=== PATIENT | male | born 1945 | race African-American/Black ===

== ENCOUNTER 2016-12-31 19:11 | Observation (INO) | payer MEDICARE ==
[~2016-12-31] VITALS: Ht 180.3 cm; Wt 86.9 kg
[2016-12-31] MEDS ORDERED: IV NORMAL SALINE 1000ML BAG 1,000 ML IV ONE (19:15)
[2016-12-31 19:28] LABS: BASO % 0 % (0-3); EOS % 0 % (0-3); HEMATOCRIT 31.9 % (39.0-53.0); HEMOGLOBIN 10.7 g/dL (13.0-17.5); LYMPH # 0.4 x10^3/uL (1.0-4.8); LYMPH % 6 % (24-48); MEAN CORPUSCULAR HEMOGLOBIN 30 pg (25-35); MEAN CORPUSCULAR HGB CONC 34 g/dL (31-37); MEAN CORPUSCULAR VOLUME 90 fL (79-100); MONO % 16 % (0-9); NEUT % 78 % (31-73); PLATELET COUNT 106 x10^3/uL (140-400); RED BLOOD COUNT 3.55 x10^6/uL (4.30-5.70); RED CELL DISTRIBUTION WIDTH 16.1 % (11.5-14.5); WHITE BLOOD COUNT 6.2 x10^3/uL (4.0-11.0)
[2016-12-31 19:36] LABS: CALCIUM 8.9 mg/dL (8.5-10.1); CREATININE 6.3 mg/dL (0.7-1.3); GFR 8.8; POTASSIUM 3.7 mmol/L (3.5-5.1)
[2016-12-31 19:42] LABS: ALBUMIN/GLOBULIN RATIO 0.6 (1.0-1.7); TOTAL BILIRUBIN 0.7 mg/dL (0.2-1.0); TOTAL PROTEIN 8.4 g/dL (6.4-8.2)
--- NOTE | 2016-12-31 19:51 | PHYS DOC ---
Past Medical History Past Medical History: Hypertension, Renal Failure Past Surgical History: Other Additional Past Surgical Histo: FISTULA RIGHT ARM Alcohol Use: None Drug Use: None Adult General Chief Complaint Chief Complaint: ALTERED MENTAL STATUS HPI HPI Patient is a 71 year old male brought by EMS. The patient was found unconscious in his car in his driveway by a neighbor. The patient had driven himself to dialysis and had come home, and then evidently for some reason either fell asleep or became unconscious in his car. EMS stated that his car was turned off on their arrival. The interior of the car was extremely hot and the patient was extremely hot and diaphoretic. The patient was altered, confused , lethargic when they first arrived. By the time they arrived in the ED, the patient was becoming much more alert, EMS described him as 100 times better than when they first found him. The patient doesn't know what happened. He did drive himself to dialysis, he does have a bandage over his fistula, but he doesn 't remember getting home or anything after that. At this time, the patient has no particular complaints. He denies pain. Patient dialyzes on Monday and Monday. Patient denies history of heart trouble. He has hypertension. He believes he has kidney failure because it runs in his family. He's been on dialysis for about 7-1/2 years. He is not diabetic. He does not take any sedative medication. He has no history of seizures. PCP Dr. Mccray Teacher Dr. Mendez Review of Systems Review of Systems Constitutional: Denies fever or chills [] Eyes: Denies change in visual acuity, redness, or eye pain [] HENT: Denies nasal congestion or sore throat [] Respiratory: Denies cough or shortness of breath [] Cardiovascular: Denies chest pain GI: Denies abdominal pain, nausea, vomiting, bloody stools or diarrhea [] : He does not make any urine Musculoskeletal: Denies back pain or joint pain [] Integument: Denies rash or skin lesions [] Neurologic: Denies headache, focal weakness or sensory changes [] Current Medications Current Medications Current Medications Medications (Trade) Dose Ordered Sig/Elli Start Time Stop Time Status Last Admin Dose Admin Sodium Chloride 1,000 ml @ 1,000 mls/hr 1X ONCE 12/31/16 19:15 12/31/16 20:14 DC 12/31/16 19:15 1,000 MLS/HR Allergies Allergies Allergies Coded Allergies Type Severity Reaction Last Updated Verified No Known Drug Allergies 12/31/16 No Physical Exam Physical Exam Constitutional: Well developed, well nourished, no acute distress, non-toxic appearance. Temp 99.9 orally, patient is hot to the touch, alert, mentating normally. HENT: Normocephalic, atraumatic, bilateral external ears normal, oropharynx moist, no oral exudates, nose normal. [] Eyes: conjunctiva normal, no discharge. [] Neck: Normal range of motion, no stridor. [] Cardiovascular:Heart rate regular rhythm, no murmur [] Lungs & Thorax: Bilateral breath sounds clear to auscultation [] Abdomen: Bowel sounds normal, soft, no tenderness, no masses, no pulsatile masses. [] Skin: Warm, dry, no erythema, no rash. [] Extremities: No tenderness, no cyanosis, no clubbing, ROM intact, no edema. [] Neurologic: Alert and oriented X 3, normal motor function, normal sensory function, no focal deficits noted. [] Current Patient Data Vital Signs Vital Signs Date Time Temp Pulse Resp B/P (MAP) Pulse Ox O2 Delivery O2 Flow Rate FiO2 12/31/16 20:47 88 18 147/82 (103) 95 Room Air 12/31/16 19:11 99.9 99.9 Lab Values Laboratory Tests Test 12/31/16 19:19 12/31/16 19:22 White Blood Count 6.2 x10^3/uL (4.0-11.0) Red Blood Count 3.55 x10^6/uL (4.30-5.70) L Hemoglobin 10.7 g/dL (13.0-17.5) L Hematocrit 31.9 % (39.0-53.0) L Mean Corpuscular Volume 90 fL (79-100) Mean Corpuscular Hemoglobin 30 pg (25-35) Mean Corpuscular Hemoglobin Concent 34 g/dL (31-37) Red Cell Distribution Width 16.1 % (11.5-14.5) H Platelet Count 106 x10^3/uL (140-400) L Neutrophils (%) (Auto) 78 % (31-73) H Lymphocytes (%) (Auto) 6 % (24-48) L Monocytes (%) (Auto) 16 % (0-9) H Eosinophils (%) (Auto) 0 % (0-3) Basophils (%) (Auto) 0 % (0-3) Neutrophils # (Auto) 4.8 x10^3uL (1.8-7.7) Lymphocytes # (Auto) 0.4 x10^3/uL (1.0-4.8) L Monocytes # (Auto) 1.0 x10^3/uL (0.0-1.1) Eosinophils # (Auto) 0.0 x10^3/uL (0.0-0.7) Basophils # (Auto) 0.0 x10^3/uL (0.0-0.2) Sodium Level 137 mmol/L (136-145) Potassium Level 3.7 mmol/L (3.5-5.1) Chloride Level 103 mmol/L (98-107) Carbon Dioxide Level 21 mmol/L (21-32) Anion Gap 13 (6-14) 16 mmol/L (6-14) H Blood Urea Nitrogen 20 mg/dL (8-26) Creatinine 6.3 mg/dL (0.7-1.3) H Estimated GFR (Cockcroft-Gault) 8.8 BUN/Creatinine Ratio 3 (6-20) L Glucose Level 113 mg/dL (70-99) H 106 mg/dL (70-99) H Calcium Level 8.9 mg/dL (8.5-10.1) Total Bilirubin 0.7 mg/dL (0.2-1.0) Aspartate Amino Transferase (AST) 48 U/L (15-37) H Alanine Aminotransferase (ALT) 35 U/L (16-63) Alkaline Phosphatase 191 U/L (46-116) H Creatine Kinase 147 U/L (39-308) Total Protein 8.4 g/dL (6.4-8.2) H Albumin 3.0 g/dL (3.4-5.0) L Albumin/Globulin Ratio 0.6 (1.0-1.7) L POC Hemoglobin 11.6 g/dL (14-18) L POC Hematocrit 34 % (37-52) L POC Sodium 139 mmol/L (135-145) POC Potassium 3.7 mmol/L (3.5-5.0) POC Chloride 107 mmol/L (98-110) POC Total CO2 21 mmol/L (23-32) L POC Blood Urea Nitrogen 21 mg/dL (8-26) POC Creatinine 6.5 mg/dL (0.5-1.4) H POC Ionized Calcium (Lorene) 1.10 mmol/L (1.13-1.32) L POC Troponin I 0.03 ng/ml (<0.08) Laboratory Tests 12/31/16 19:19 Laboratory Tests 12/31/16 19:19 12/31/16 19:22 EKG EKG 12-lead EKG read by me. Underlying sinus rhythm. Heart rate 92. Intrinsic rhythm has a rate of about 100. In intrinsic QRS, there are no acute ST or T wave changes indicative of ischemia or infarction. No STEMI. There are numerous PVCs and some couplets. They appear to be unifocal. 191[] Radiology/Procedures Radiology/Procedures [] Course & Med Decision Making Course & Med Decision Making Pertinent Labs and Imaging studies reviewed. (See chart for details) 71-year-old male presents by EMS after being found unconscious in his vehicle, no evidence of injury or MVC, however the temperature is about 95 and he is hypothermic and soaked with sweat. Although he was initially lethargic and confused, the stimulation of bringing him to the hospital resulted in significant improvement in his mental status and he presents with a relatively normal mental status. He is wearing 3 layers of clothing including long underwear, states that the temperature in the dialysis unit is very cold and he always dresses like this. Even though he is a dialysis patient who does not make urine, his clothing is soaked and he is sufficiently diaphoretic that we discussed the patient and believe that a liter of fluid will just replace the losses he's had from sweating. Discussed with the patient that we will check some labs, give him some fluids, and observe him, he is agreeable to that plan. Labs are unremarkable for a dialysis patient. We did give him 1 L of IV fluids, realizing he does not make urine but that he lost a lot of fluid in the sweating episode. Patient remained alert, stable, mentating normally in the emergency department. During his entire stay, he continued to have very frequent PVCs, often in pairs. I discussed this with the patient and he tells me that he does see a newspaper subscription solicitor regularly at [facility] because he is on the kidney transplant list and he has to keep up with his cardiology evaluations. He has echocardiograms regularly and they are all was reported as normal. He's never heard anything about PVCs, irregular heartbeat, any rhythm problems with his heart. The patient is a good historian and I feel that if he has been having frequent PVCs and couplets he would probably know that. For this reason, I recommended that he be admitted to the hospital for cardiac monitoring. The patient is agreeable to that recommendation. I discussed the case with Dr. Baugh, [facility]. She will admit the patient. I wrote bridge orders. [] Dragon Disclaimer Dragon Disclaimer This electronic medical record was generated, in whole or in part, using a voice recognition dictation system. Departure Departure Impression: Primary Impression: Cardiac arrhythmia Additional Impressions: Paired ventricular premature complexes Syncope Disposition: ADMITTED INPATIENT Admitting Physician: Azul Baugh Condition: STABLE Problem Qualifiers SONIA ACEVEDO MD Dec 31, 2016 19:51
[2016-12-31 19:53] LABS: POTASSIUM ISTAT 3.7 mmol/L (3.5-5.0)
[2016-12-31 23:05] VITALS: BP 141/66
[2017-01-01] VITALS (8 sets, daily range): BP systolic 124–159; BP diastolic 60–69
[2017-01-01] MEDS ORDERED: AMLO10TA4 PO (00:56)
[2017-01-01] MEDS ORDERED: MINO2.5T12 PO (01:02)
--- NOTE | 2017-01-01 03:27 | ACF ---
Admit Criteria Forms Admit Criteria Forms Admit Criteria Forms CARDIAC ARRHYTHMIA Clinical Indications for Inpatient Care (Place 'X' for any and all applicable criteria): Ongoing inpatient care for cardiac arrhythmia needed as indicated by ANY ONE of the following(1)(2)(3)(4)(7) : [ ]I. Vital sign abnormality secondary to arrhythmia [ ]II. Patient has implantable cardioverter-defibrillator that has fired more than once within past 24 hours or needs immediate adjustment of settings that cannot be done other than in inpatient setting. [ ]III. Altered mental status [ ]IV. Resuscitated or aborted ventricular fibrillation or ventricular tachycardia in patient without implantable cardioverter- defibrillator [ ]V. Initiation of antiarrhythmic drug therapy is needed in patient at high risk of adverse effects as indicated by ANY ONE of the following: [ ]a) Significant structural heart disease (e.g., reduced ejection fraction, congenital heart disease, valvular heart disease) [ ]b) Prolonged QT interval [ ]c) Underlying sinus node or atrioventricular conduction disturbances [ ]d) Need for treatment with antiarrhythmic drugs that have significant proarrhythmic potential (e.g., dofetilide, sotalol, procainamide) [ ]. Acute myocardial ischemia as a consequence or suspected cause of arrhythmia [ X]VII. Syncope secondary to arrhythmia [ ]VIII. Heart failure (eg, pulmonary edema) secondary to arrhythmia) (26)(27) [ ]IX. Patient has implantable cardioverter defibrillator that has fired more than once within past 24hr or needs immediate adjustment of settings that cannot be done other than in inpatient setting.(8) [ ]X. Sustained (30 seconds or more of ventricular rhythm at more than 100 beats per minute) ventricular tachycardia and ANY ONE of the following: [ ]a) No previous known history of sustained ventricular tachycardia [ ]b) Structural heart disease (eg, reduced ejection fraction, hypertrophic cardiomyopathy, severe valvular disease) and without implantable cardioverter-defibrillator(24)(32)(33) [ ]c) Need for treatment of drug toxicity (eg, digitalis toxicity)(34 ) [ ]d) Need for electrical cardioversion Extended stay beyond goal length of stay may be needed for [ ]a) Hemodynamic stability [ ]b) Arrhythmia evaluation completed [ ]c) Reversible causes of arrhythmia eliminated or mitigated [ ]d) Specific antiarrhythmia treatment initiated as appropriate [ ]e) Anticoagulation requirements addressed (or anticoagulation not required). [ ]f) Medical comorbidities manageable at lower level of care The original [facility] [employer] content created by [facility] has been revised. The portions of the content which have been revised are identified through the use of italic text or in bold, and [facility] has neither reviewed nor approved the modified material. All other unmodified content is copyright [facility]. Please see references footnoted in the original [facility] edition 2016 AMBERLY TORRES Jan 01, 2017 03:27
[2017-01-01 08:03] LABS: CALCIUM 8.1 mg/dL (8.5-10.1); CREATININE 7.3 mg/dL (0.7-1.3); GFR 8.9; POTASSIUM 4.1 mmol/L (3.5-5.1)
[2017-01-01] MEDS ORDERED: ACETAMINOPHEN 325 MG TABLET. PO PRN (10:00)
[2017-01-01] MEDS ORDERED: ONDANSETRON PF 4 MG/2 ML VIAL. IV PRN (10:00)
[2017-01-01] MEDS ORDERED: DOCUSATE SODIUM 100 MG CAPSULE. PO PRN (10:00)
[2017-01-01] MEDS ORDERED: hydrALAZINE 20 MG/ML VIAL. IVP PRN (10:00)
[2017-01-01] MEDS ORDERED: MORPHINE SULFATE 2 MG/ML DISP.SYRIN. IV PRN (10:00)
[2017-01-01] MEDS ORDERED: traMADol 50 MG TABLET PO PRN (10:00)
[2017-01-01] MEDS ORDERED: CALC667T2 PO (11:16)
[2017-01-01] MEDS: MINOXIDIL 2.5 MG TABLET PO SCH (11:50)
[2017-01-01] MEDS: amLODIPine BESYLATE 10 MG TABLET PO SCH ×2 (11:50→21:00)
[2017-01-01] MEDS: HEPARIN PF for SUB-Q USE 5,000 UNIT/0.5 ML VIAL. SQ SCH ×3 (11:53→21:01)
--- NOTE | 2017-01-01 11:54 | PDOC2 ---
IM Consult Reason for consult sepsis Referring physician Dr. Kuo Date of Admission DATE: 01/01/17 TIME: 11:32 Chief Complaint Chief Complaint This 71 year old AA male has been admitted with a chief complaint of syncope HPI: 71 y/o with h/o CAD and cath and HTN on HD for the last 7 years. Is on the transplant list. He is always cold at HD but on 12/27 he felt extra cold and was shaking to the point where he could not talk. Blood cults were apparently obtained and have returned + for GNR and GPC per . Mr. Jim states he thinks he received abx at HD yesterday. He remembers driving into his driveway but that is the last he remembers after awakening in the ambulance. No F/C/BELLAMY/change in vision/Sinus/sore thorat cough/SOA/N/V/D. No trauma/scraps or bites. Problems: Past Medical History Cardiovascular: CAD, HTN Past Surgical History Past Surgical History: Other Past Family History Family History: Kidney Disease Past Social History PSH No tobacco Review of Symptoms Review of Symptoms Psychological ROS: negative Ophthalmic ROS: negative ENT ROS: negative Allergy and Immunology ROS: negative Hematology and Lymphatic: negative Endocrine ROS: negative Respiratory ROS: no cold, cough, dyspnea. Cardiovascular ROS: no chest pain or dyspnea on exertion Gastrointestinal ROS: no abdominal pain, change in bowel habits, or black or bloody stools Musculoskeletal ROS: no pain Neurological ROS: negative Dermatological ROS: no rash Medications Current Medications Acetaminophen (Tylenol) 650 mg PRN Q6HRS PRN PO FEVER; Start 01/01/17 at 10:00 Amlodipine Besylate (Norvasc) 10 mg BID PO ; Start 01/01/17 at 10:00 Docusate Sodium (Colace) 100 mg PRN DAILY PRN PO CONSTIPATION; Start 01/01/17 at 10:00 Heparin Sodium (Porcine) (Heparin Sq) 5,000 unit Q8HRS SQ ; Start 01/01/17 at 10 :00 Hydralazine HCl (Apresoline) 10 mg PRN Q4HRS PRN IVP ELEVATED BP, SEE COMMENTS ; Start 01/01/17 at 10:00 Minoxidil (Loniten) 10 mg DAILY PO ; Start 01/01/17 at 10:00 Morphine Sulfate 2 mg PRN Q2HR PRN IV PAIN; Start 01/01/17 at 10:00 Ondansetron HCl (Zofran) 4 mg PRN Q6HRS PRN IV NAUSEA/VOMITING; Start 01/01/17 at 10:00 Sodium Chloride 1,000 ml @ 1,000 mls/hr 1X ONCE IV Last administered on t 19:15; Start 12/31/16 at 19:15; Stop 12/31/16 at 20:14; Status DC Tramadol HCl (Ultram) 50 mg PRN Q6HRS PRN PO PAIN; Start 01/01/17 at 10:00 Allergy Allergies Coded Allergies Type Severity Reaction Last Updated Verified No Known Drug Allergies 12/31/16 No Physical Exam Physical Exam General appearance - alert,well appearing, and in no distress Mental Status - alert, oriented to person, place, and time, affect appropriate to mood Head - PERRL, ? cataracts. nml conj, Oc/op ? dentition, clear Neck supple, No JVD Chest - clear to auscultation, no wheezes, rales or rhonchi, symmetric air entry Heart - S1 and S2 normal Abdomen - soft, nontender, nondistended, no masses or organomegaly Neurological - alert and oriented Musculoskeletal - no muscular tenderness noted Extremities - no pedal edema. Fistula - clean Skin - warm and dry Labs Laboratory Tests Test 12/31/16 19:19 12/31/16 19:22 01/01/17 07:14 White Blood Count 6.2 x10^3/uL (4.0-11.0) Red Blood Count 3.55 x10^6/uL (4.30-5.70) Hemoglobin 10.7 g/dL (13.0-17.5) Hematocrit 31.9 % (39.0-53.0) Mean Corpuscular Volume 90 fL (79-100) Mean Corpuscular Hemoglobin 30 pg (25-35) Mean Corpuscular Hemoglobin Concent 34 g/dL (31-37) Red Cell Distribution Width 16.1 % (11.5-14.5) Platelet Count 106 x10^3/uL (140-400) Neutrophils (%) (Auto) 78 % (31-73) Lymphocytes (%) (Auto) 6 % (24-48) Monocytes (%) (Auto) 16 % (0-9) Eosinophils (%) (Auto) 0 % (0-3) Basophils (%) (Auto) 0 % (0-3) Neutrophils # (Auto) 4.8 x10^3uL (1.8-7.7) Lymphocytes # (Auto) 0.4 x10^3/uL (1.0-4.8) Monocytes # (Auto) 1.0 x10^3/uL (0.0-1.1) Eosinophils # (Auto) 0.0 x10^3/uL (0.0-0.7) Basophils # (Auto) 0.0 x10^3/uL (0.0-0.2) Sodium Level 137 mmol/L (136-145) 140 mmol/L (136-145) Potassium Level 3.7 mmol/L (3.5-5.1) 4.1 mmol/L (3.5-5.1) Chloride Level 103 mmol/L (98-107) 106 mmol/L (98-107) Carbon Dioxide Level 21 mmol/L (21-32) 20 mmol/L (21-32) Anion Gap 13 (6-14) 16 mmol/L (6-14) 14 (6-14) Blood Urea Nitrogen 20 mg/dL (8-26) 26 mg/dL (8-26) Creatinine 6.3 mg/dL (0.7-1.3) 7.3 mg/dL (0.7-1.3) Estimated GFR (Cockcroft-Gault) 8.8 8.9 BUN/Creatinine Ratio 3 (6-20) Glucose Level 113 mg/dL (70-99) 106 mg/dL (70-99) 93 mg/dL (70-99) Calcium Level 8.9 mg/dL (8.5-10.1) 8.1 mg/dL (8.5-10.1) Total Bilirubin 0.7 mg/dL (0.2-1.0) Aspartate Amino Transf (AST/SGOT) 48 U/L (15-37) Alanine Aminotransferase (ALT/SGPT) 35 U/L (16-63) Alkaline Phosphatase 191 U/L (46-116) Creatine Kinase 147 U/L (39-308) Total Protein 8.4 g/dL (6.4-8.2) Albumin 3.0 g/dL (3.4-5.0) Albumin/Globulin Ratio 0.6 (1.0-1.7) Bedside Hemoglobin 11.6 g/dL (14-18) Bedside Hematocrit 34 % (37-52) Bedside Sodium 139 mmol/L (135-145) Bedside Potassium 3.7 mmol/L (3.5-5.0) Bedside Chloride 107 mmol/L (98-110) Bedside Total CO2 21 mmol/L (23-32) Bedside Blood Urea Nitrogen 21 mg/dL (8-26) Bedside Creatinine 6.5 mg/dL (0.5-1.4) Bedside Ionized Calcium (Lorene) 1.10 mmol/L (1.13-1.32) Bedside Troponin I 0.03 ng/ml (<0.08) Laboratory Tests Test 12/31/16 19:19 12/31/16 19:22 01/01/17 07:14 White Blood Count 6.2 x10^3/uL (4.0-11.0) Red Blood Count 3.55 x10^6/uL (4.30-5.70) Hemoglobin 10.7 g/dL (13.0-17.5) Hematocrit 31.9 % (39.0-53.0) Mean Corpuscular Volume 90 fL (79-100) Mean Corpuscular Hemoglobin 30 pg (25-35) Mean Corpuscular Hemoglobin Concent 34 g/dL (31-37) Red Cell Distribution Width 16.1 % (11.5-14.5) Platelet Count 106 x10^3/uL (140-400) Neutrophils (%) (Auto) 78 % (31-73) Lymphocytes (%) (Auto) 6 % (24-48) Monocytes (%) (Auto) 16 % (0-9) Eosinophils (%) (Auto) 0 % (0-3) Basophils (%) (Auto) 0 % (0-3) Neutrophils # (Auto) 4.8 x10^3uL (1.8-7.7) Lymphocytes # (Auto) 0.4 x10^3/uL (1.0-4.8) Monocytes # (Auto) 1.0 x10^3/uL (0.0-1.1) Eosinophils # (Auto) 0.0 x10^3/uL (0.0-0.7) Basophils # (Auto) 0.0 x10^3/uL (0.0-0.2) Sodium Level 137 mmol/L (136-145) 140 mmol/L (136-145) Potassium Level 3.7 mmol/L (3.5-5.1) 4.1 mmol/L (3.5-5.1) Chloride Level 103 mmol/L (98-107) 106 mmol/L (98-107) Carbon Dioxide Level 21 mmol/L (21-32) 20 mmol/L (21-32) Anion Gap 13 (6-14) 16 mmol/L (6-14) 14 (6-14) Blood Urea Nitrogen 20 mg/dL (8-26) 26 mg/dL (8-26) Creatinine 6.3 mg/dL (0.7-1.3) 7.3 mg/dL (0.7-1.3) Estimated GFR (Cockcroft-Gault) 8.8 8.9 BUN/Creatinine Ratio 3 (6-20) Glucose Level 113 mg/dL (70-99) 106 mg/dL (70-99) 93 mg/dL (70-99) Calcium Level 8.9 mg/dL (8.5-10.1) 8.1 mg/dL (8.5-10.1) Total Bilirubin 0.7 mg/dL (0.2-1.0) Aspartate Amino Transf (AST/SGOT) 48 U/L (15-37) Alanine Aminotransferase (ALT/SGPT) 35 U/L (16-63) Alkaline Phosphatase 191 U/L (46-116) Creatine Kinase 147 U/L (39-308) Total Protein 8.4 g/dL (6.4-8.2) Albumin 3.0 g/dL (3.4-5.0) Albumin/Globulin Ratio 0.6 (1.0-1.7) Bedside Hemoglobin 11.6 g/dL (14-18) Bedside Hematocrit 34 % (37-52) Bedside Sodium 139 mmol/L (135-145) Bedside Potassium 3.7 mmol/L (3.5-5.0) Bedside Chloride 107 mmol/L (98-110) Bedside Total CO2 21 mmol/L (23-32) Bedside Blood Urea Nitrogen 21 mg/dL (8-26) Bedside Creatinine 6.5 mg/dL (0.5-1.4) Bedside Ionized Calcium (Lorene) 1.10 mmol/L (1.13-1.32) Bedside Troponin I 0.03 ng/ml (<0.08) Vitals Vital Signs Date Time Temp Pulse Resp B/P (MAP) Pulse Ox O2 Delivery O2 Flow Rate FiO2 01/01/17 08:00 Room Air 01/01/17 07:00 98.6 66 16 131/61 (84) 96 98.6 Assessment Assessment ? Sepsis + cults from 12/27 at HD both bottles GNR/GPC per report from Dr. Kuo CKD on HD ? Syncope Acute encephalopathy - better CAD with h/o cath Plan Plan Blood cults times 2 Await Cardiology eval Begin Vanc and Zosyn F/u labs D/w JAMSHID Mcfarland MD Jan 01, 2017 11:54
[2017-01-01] MEDS ORDERED: CALCIUM ACETATE 667 MG CAPSULE PO SCH (12:00)
--- NOTE | 2017-01-01 12:00 | EKG ---
[facility] [address] [place] [id number] Test Date: 2016-12-31 Test Time: 19:18:50 Pat Name: TR BALTAZAR Department: Room: 203 1 Gender: M [employer] Head: : 1945 Requested By: FEMI ENNIS Order Number: [id number] Reading MD: Measurements Intervals [place] Rate: 92 P: 42 WA: 196 QRS: 44 QRSD: 82 T: 83 QT: 376 QTc: 470 Interpretive Statements SINUS RHYTHM VENTRICULAR PREMATURE COMPLEX(ES) LEFT ATRIAL ABNORMALITY LOW LIMB LEAD VOLTAGE T ABNORMALITY IN ANTEROLATERAL LEADS ABNORMAL ECG RI6.01 No previous ECG available for comparison
--- NOTE | 2017-01-01 12:28 | PDOC2 ---
CONSULT Date of Consult Date of Consult DATE: 01/01/17 TIME: 12:18 Reason for Consult Reason for Consult: ESRD Referring Physician Referring Physician: RAYMON Identification/Chief Complaint Chief Complaint CONFUSION Problems: Source Source: Chart review, Patient History of Present Illness Reason for Visit: THIS IS A 71 YR ESRD PT ON HD FOR ABOUT 7 YEARS. HE HAS HD ON TTS. WENT TO HD YESTERDAY AND AFTERWARDS WENT TO [place] AND THEN MADE IT TO HIS DRIVEWAY WHERE NEIGHBORS FOUND HIM POORLY RESPONSIVE IN THE CAR. HE STATES HE FELT HOT AND FELT LIKE PASSING OUT. HE WAS TRANSPORTED TO THE ER HERE. LABS ARE C/W ESRD. I RECEIVED A CALL TODAY ABOUT HIS OP BLOOD CX'S AND THEY ARE REPORTED POS FOR G+ COCCI AND G- RODS. APPARENTLY HE HAD CHILLS EARLIER IN THE WEEK WHILE ON DIALYSIS AND SO CULTURES WERE DRAWN. HEMODYNAMICALLY HE IS STABLE. HE HAS A LEFT FA [facility] FOR DIALYSIS ACCESS Past Medical History Cardiovascular: CAD, HTN GI: Constipation Heme/Onc: Anemia NOS Renal/: Chronic renal insuff Endocrine: Hyperparathyroidism Past Surgical History Past Surgical History LEFT FA [facility] Past Surgical History: Other Family History Family History: Kidney Disease Current Problem List Problem List Problems Medical Problems: (1) Cardiac arrhythmia Status: Acute (2) Paired ventricular premature complexes Status: Acute (3) Syncope Status: Acute Current Medications Current Medications Current Medications Sodium Chloride 1,000 ml @ 1,000 mls/hr 1X ONCE IV Last administered on 19:15; Start 12/31/16 at 19:15; Stop 12/31/16 at 20:14; Status DC Amlodipine Besylate (Norvasc) 10 mg BID PO Last administered on 01/01/17 11:50 ; Start 01/01/17 at 10:00 Minoxidil (Loniten) 10 mg DAILY PO Last administered on 01/01/17 11:50; Start 01/01/17 at 10:00 Acetaminophen (Tylenol) 650 mg PRN Q6HRS PRN PO FEVER; Start 01/01/17 at 10:00 Ondansetron HCl (Zofran) 4 mg PRN Q6HRS PRN IV NAUSEA/VOMITING; Start 01/01/17 at 10:00 Morphine Sulfate 2 mg PRN Q2HR PRN IV PAIN; Start 01/01/17 at 10:00 Tramadol HCl (Ultram) 50 mg PRN Q6HRS PRN PO PAIN; Start 01/01/17 at 10:00 Hydralazine HCl (Apresoline) 10 mg PRN Q4HRS PRN IVP ELEVATED BP, SEE COMMENTS ; Start 01/01/17 at 10:00 Docusate Sodium (Colace) 100 mg PRN DAILY PRN PO CONSTIPATION; Start 01/01/17 at 10:00 Heparin Sodium (Porcine) (Heparin Sq) 5,000 unit Q8HRS SQ Last administered on 01/01/17t 11:53; Start 01/01/17 at 10:00 Calcium Acetate (Phoslo) 667 mg TIDWMEALS PO ; Start 01/01/17 at 12:00; Stop at 12:04; Status DC Vancomycin HCl (Vanco Per Pharmacy) 1 each PRN DAILY PRN MC SEE COMMENTS; Start 01/01/17 at 11:45 Piperacillin Sod/ Tazobactam Sod 2.25 gm/Sodium Chloride 50 ml @ 100 mls/hr Q8HRS IV ; Start 01/01/17 at 13:00 Vancomycin HCl 2 gm/Sodium Chloride 500 ml @ 250 mls/hr 1X ONCE IV ; Start at 13:00; Stop 01/01/17 at 14:59 Calcium Acetate (Phoslo) 667 mg BIDWMEALS PO ; Start 01/01/17 at 17:00 Active Scripts Active Reported Calphron (Calcium Acetate) 667 Mg Tablet 667 Mg PO TIDWMEALS Minoxidil 2.5 Mg Tablet 10 Mg PO DAILY Norvasc (Amlodipine Besylate) 10 Mg Tablet 10 Mg PO BID Allergies Allergies: Coded Allergies: No Known Drug Allergies (Unverified , 12/31/16) ROS General: YES: Fatigue, Malaise PSYCHOLOGICAL ROS: YES: Anxiety Eyes: Yes Decreased vision HEENT: YES: [place]acaches Respiratory: YES: Cough Cardiovascular: yes Edema Gastrointestinal: Yes Constipation Genitourinary: YES Other (ANURIA) Musculoskeletal: Yes Muscular Weakness Neurological: Yes Confusion, Yes Dizziness, Yes Weakness Skin: Yes Dry Skin Physical Exam General: Alert, Oriented X3, Cooperative, No acute distress HEENT: Atraumatic, PERRLA Lungs: Clear to auscultation, Normal air movement Heart: Regular rate, Normal S1, Normal S2 Abdomen: Normal bowel sounds, Soft, No tenderness Extremities: No clubbing Skin: No breakdown Neuro: Normal speech, Cranial nerves 3-12 NL Psych/Mental Status: Mental status NL, Mood NL MUSCULOSKELETAL: No deformity, No swelling Vitals VITALS Vital Signs Date Time Temp Pulse Resp B/P (MAP) Pulse Ox O2 Delivery O2 Flow Rate FiO2 01/01/17 11:50 66 151/71 01/01/17 11:00 98.1 16 94 Room Air 98.1 Labs Labs Laboratory Tests Test 12/31/16 19:19 12/31/16 19:22 01/01/17 07:14 White Blood Count 6.2 x10^3/uL (4.0-11.0) Red Blood Count 3.55 x10^6/uL (4.30-5.70) Hemoglobin 10.7 g/dL (13.0-17.5) Hematocrit 31.9 % (39.0-53.0) Mean Corpuscular Volume 90 fL (79-100) Mean Corpuscular Hemoglobin 30 pg (25-35) Mean Corpuscular Hemoglobin Concent 34 g/dL (31-37) Red Cell Distribution Width 16.1 % (11.5-14.5) Platelet Count 106 x10^3/uL (140-400) Neutrophils (%) (Auto) 78 % (31-73) Lymphocytes (%) (Auto) 6 % (24-48) Monocytes (%) (Auto) 16 % (0-9) Eosinophils (%) (Auto) 0 % (0-3) Basophils (%) (Auto) 0 % (0-3) Neutrophils # (Auto) 4.8 x10^3uL (1.8-7.7) Lymphocytes # (Auto) 0.4 x10^3/uL (1.0-4.8) Monocytes # (Auto) 1.0 x10^3/uL (0.0-1.1) Eosinophils # (Auto) 0.0 x10^3/uL (0.0-0.7) Basophils # (Auto) 0.0 x10^3/uL (0.0-0.2) Sodium Level 137 mmol/L (136-145) 140 mmol/L (136-145) Potassium Level 3.7 mmol/L (3.5-5.1) 4.1 mmol/L (3.5-5.1) Chloride Level 103 mmol/L (98-107) 106 mmol/L (98-107) Carbon Dioxide Level 21 mmol/L (21-32) 20 mmol/L (21-32) Anion Gap 13 (6-14) 16 mmol/L (6-14) 14 (6-14) Blood Urea Nitrogen 20 mg/dL (8-26) 26 mg/dL (8-26) Creatinine 6.3 mg/dL (0.7-1.3) 7.3 mg/dL (0.7-1.3) Estimated GFR (Cockcroft-Gault) 8.8 8.9 BUN/Creatinine Ratio 3 (6-20) Glucose Level 113 mg/dL (70-99) 106 mg/dL (70-99) 93 mg/dL (70-99) Calcium Level 8.9 mg/dL (8.5-10.1) 8.1 mg/dL (8.5-10.1) Total Bilirubin 0.7 mg/dL (0.2-1.0) Aspartate Amino Transf (AST/SGOT) 48 U/L (15-37) Alanine Aminotransferase (ALT/SGPT) 35 U/L (16-63) Alkaline Phosphatase 191 U/L (46-116) Creatine Kinase 147 U/L (39-308) Total Protein 8.4 g/dL (6.4-8.2) Albumin 3.0 g/dL (3.4-5.0) Albumin/Globulin Ratio 0.6 (1.0-1.7) Bedside Hemoglobin 11.6 g/dL (14-18) Bedside Hematocrit 34 % (37-52) Bedside Sodium 139 mmol/L (135-145) Bedside Potassium 3.7 mmol/L (3.5-5.0) Bedside Chloride 107 mmol/L (98-110) Bedside Total CO2 21 mmol/L (23-32) Bedside Blood Urea Nitrogen 21 mg/dL (8-26) Bedside Creatinine 6.5 mg/dL (0.5-1.4) Bedside Ionized Calcium (Lorene) 1.10 mmol/L (1.13-1.32) Bedside Troponin I 0.03 ng/ml (<0.08) Laboratory Tests Test 12/31/16 19:19 12/31/16 19:22 01/01/17 07:14 White Blood Count 6.2 x10^3/uL (4.0-11.0) Red Blood Count 3.55 x10^6/uL (4.30-5.70) Hemoglobin 10.7 g/dL (13.0-17.5) Hematocrit 31.9 % (39.0-53.0) Mean Corpuscular Volume 90 fL (79-100) Mean Corpuscular Hemoglobin 30 pg (25-35) Mean Corpuscular Hemoglobin Concent 34 g/dL (31-37) Red Cell Distribution Width 16.1 % (11.5-14.5) Platelet Count 106 x10^3/uL (140-400) Neutrophils (%) (Auto) 78 % (31-73) Lymphocytes (%) (Auto) 6 % (24-48) Monocytes (%) (Auto) 16 % (0-9) Eosinophils (%) (Auto) 0 % (0-3) Basophils (%) (Auto) 0 % (0-3) Neutrophils # (Auto) 4.8 x10^3uL (1.8-7.7) Lymphocytes # (Auto) 0.4 x10^3/uL (1.0-4.8) Monocytes # (Auto) 1.0 x10^3/uL (0.0-1.1) Eosinophils # (Auto) 0.0 x10^3/uL (0.0-0.7) Basophils # (Auto) 0.0 x10^3/uL (0.0-0.2) Sodium Level 137 mmol/L (136-145) 140 mmol/L (136-145) Potassium Level 3.7 mmol/L (3.5-5.1) 4.1 mmol/L (3.5-5.1) Chloride Level 103 mmol/L (98-107) 106 mmol/L (98-107) Carbon Dioxide Level 21 mmol/L (21-32) 20 mmol/L (21-32) Anion Gap 13 (6-14) 16 mmol/L (6-14) 14 (6-14) Blood Urea Nitrogen 20 mg/dL (8-26) 26 mg/dL (8-26) Creatinine 6.3 mg/dL (0.7-1.3) 7.3 mg/dL (0.7-1.3) Estimated GFR (Cockcroft-Gault) 8.8 8.9 BUN/Creatinine Ratio 3 (6-20) Glucose Level 113 mg/dL (70-99) 106 mg/dL (70-99) 93 mg/dL (70-99) Calcium Level 8.9 mg/dL (8.5-10.1) 8.1 mg/dL (8.5-10.1) Total Bilirubin 0.7 mg/dL (0.2-1.0) Aspartate Amino Transf (AST/SGOT) 48 U/L (15-37) Alanine Aminotransferase (ALT/SGPT) 35 U/L (16-63) Alkaline Phosphatase 191 U/L (46-116) Creatine Kinase 147 U/L (39-308) Total Protein 8.4 g/dL (6.4-8.2) Albumin 3.0 g/dL (3.4-5.0) Albumin/Globulin Ratio 0.6 (1.0-1.7) Bedside Hemoglobin 11.6 g/dL (14-18) Bedside Hematocrit 34 % (37-52) Bedside Sodium 139 mmol/L (135-145) Bedside Potassium 3.7 mmol/L (3.5-5.0) Bedside Chloride 107 mmol/L (98-110) Bedside Total CO2 21 mmol/L (23-32) Bedside Blood Urea Nitrogen 21 mg/dL (8-26) Bedside Creatinine 6.5 mg/dL (0.5-1.4) Bedside Ionized Calcium (Lorene) 1.10 mmol/L (1.13-1.32) Bedside Troponin I 0.03 ng/ml (<0.08) Assessment/Plan Assessment/Plan IMP ? HEAT EXHAUSTION ENCEPHALOPATHY ANEMIA ESRD HTN BACTEREMIA-G+ COCCI AND G- RODS PER OP LABS FROM MONDAY PLAN WILL ASK ID TO EVALUATE HD TTS [facility] KSENIA ALFONSO MD Jan 01, 2017 12:28
[2017-01-01] MEDS: PIPERACILLIN/TAZOBACTAM 2.25 GM in IV NORMAL SALINE 50ML 50 ML IV SCH ×2 (12:53→21:02)
[2017-01-01] MEDS ORDERED: VANCOMYCIN 2 GM in IV NORMAL SALINE 500ML BAG 500 ML IV ONE (13:00)
--- NOTE | 2017-01-01 13:00 | PDOC1 ---
History and Physical Date of Admission Date of Admission 01/01/17 Identification/Chief Complaint Chief Complaint syncope Problems: Source Source: Chart review, Patient History of Present Illness History of Present Illness 71yo M, HTN, ESRD ON HD, was sent by EMS for possible syncope. Pt lives alone, said he did his HD yesterday wo any problem, drove back home, feels hot, then parked his car at the drive way, then woke up by EMS. said his neighbor likely called EMS. when EMS came, he was lethargic, hyperthermia, sent to ER. He possible stayed in the car for 5 hours. He became normal in ER. HOwever, pt cannot recall what happened. He denies fever, chills, cough, sob, chest pain, palpitation, dehydration. He was found some PVCs in ER, not overnight. however, when we got dr. Kuo consult for his HD TTS, he was actually found + blood cx with gram neg and pos in the clinic last week and received abx, ID consult then. Past Medical History Cardiovascular: CAD, HTN GI: Constipation Heme/Onc: Anemia NOS Renal/: Chronic renal insuff Endocrine: Hyperparathyroidism Past Surgical History Past Surgical History: Other Family History Family History: Kidney Disease Social History Smoke: No ALCOHOL: none Drugs: None Current Problem List Problem List Problems Medical Problems: (1) Cardiac arrhythmia Status: Acute (2) Paired ventricular premature complexes Status: Acute (3) Syncope Status: Acute Current Medications Current Medications Current Medications Medications (Trade) Dose Ordered Sig/Elli Start Time Stop Time Status Last Admin Dose Admin Acetaminophen (Tylenol) 650 mg PRN Q6HRS PRN 01/01/17 10:00 Amlodipine Besylate (Norvasc) 10 mg BID 01/01/17 10:00 01/01/17 11:50 10 MG Calcium Acetate (Phoslo) 667 mg BIDWMEALS 01/01/17 17:00 Darbepoetin Kush (Aranesp) 60 mcg Angel 01/01/17 21:00 Docusate Sodium (Colace) 100 mg PRN DAILY PRN 01/01/17 10:00 Heparin Sodium (Porcine) (Heparin Sq) 5,000 unit Q8HRS 01/01/17 10:00 01/01/17 11:53 5,000 UNIT Hydralazine HCl (Apresoline) 10 mg PRN Q4HRS PRN 01/01/17 10:00 Minoxidil (Loniten) 10 mg DAILY 01/01/17 10:00 01/01/17 11:50 10 MG Morphine Sulfate 2 mg PRN Q2HR PRN 01/01/17 10:00 Ondansetron HCl (Zofran) 4 mg PRN Q6HRS PRN 01/01/17 10:00 Piperacillin Sod/ Tazobactam Sod 2.25 gm/Sodium Chloride 50 ml @ 100 mls/hr Q8HRS 01/01/17 13:00 Sodium Chloride 1,000 ml @ 1,000 mls/hr 1X ONCE 12/31/16 19:15 12/31/16 20:14 DC 12/31/16 19:15 1,000 MLS/HR Tramadol HCl (Ultram) 50 mg PRN Q6HRS PRN 01/01/17 10:00 Vancomycin HCl (Vanco Per Pharmacy) 1 each PRN DAILY PRN 01/01/17 11:45 Vancomycin HCl 2 gm/Sodium Chloride 500 ml @ 250 mls/hr 1X ONCE 01/01/17 13:00 01/01/17 14:59 Allergies Allergies Allergies Coded Allergies Type Severity Reaction Last Updated Verified No Known Drug Allergies 12/31/16 No ROS Review of System CONSTITUTIONAL: No fever or chills EYES: No recent changes SKIN: No rash or itching CARDIOVASCULAR: No chest pain, syncope, palpitations, or edema RESPIRATORY: No SOB or cough GASTROINTESTINAL: No nausea, vomiting or abdominal pain NEUROLOGICAL: No headaches or weakness ENDOCRINE: No cold or heat intolerance GENITOURINARY: No urgency or frequency of urination MUSCULOSKELETAL: No back pain or joint pain LYMPHATICS: No enlarged lymph nodes PSYCHIATRIC: No anxiety or depression Physical Exam Physical Exam GEN.: No apparent distress. Alert and oriented. HEENT: Head is normocephalic, atraumatic NECK: Supple. LUNGS: Clear to auscultation. HEART: RRR, S1, S2 present. Peripheral pulses intact ABDOMEN: Soft, nontender. Positive bowel sounds. EXTREMITIES: Without any cyanosis. NEUROLOGIC: Normal speech, normal tone PSYCHIATRIC: Normal affect, normal mood. SKIN: No ulcerations Vitals Vitals Vital Signs Date Time Temp Pulse Resp B/P (MAP) Pulse Ox O2 Delivery O2 Flow Rate FiO2 01/01/17 11:50 66 151/71 01/01/17 11:00 98.1 16 94 Room Air 98.1 Labs Labs Laboratory Tests Test 12/31/16 19:19 12/31/16 19:22 01/01/17 07:14 White Blood Count 6.2 x10^3/uL (4.0-11.0) Red Blood Count 3.55 x10^6/uL (4.30-5.70) Hemoglobin 10.7 g/dL (13.0-17.5) Hematocrit 31.9 % (39.0-53.0) Mean Corpuscular Volume 90 fL (79-100) Mean Corpuscular Hemoglobin 30 pg (25-35) Mean Corpuscular Hemoglobin Concent 34 g/dL (31-37) Red Cell Distribution Width 16.1 % (11.5-14.5) Platelet Count 106 x10^3/uL (140-400) Neutrophils (%) (Auto) 78 % (31-73) Lymphocytes (%) (Auto) 6 % (24-48) Monocytes (%) (Auto) 16 % (0-9) Eosinophils (%) (Auto) 0 % (0-3) Basophils (%) (Auto) 0 % (0-3) Neutrophils # (Auto) 4.8 x10^3uL (1.8-7.7) Lymphocytes # (Auto) 0.4 x10^3/uL (1.0-4.8) Monocytes # (Auto) 1.0 x10^3/uL (0.0-1.1) Eosinophils # (Auto) 0.0 x10^3/uL (0.0-0.7) Basophils # (Auto) 0.0 x10^3/uL (0.0-0.2) Sodium Level 137 mmol/L (136-145) 140 mmol/L (136-145) Potassium Level 3.7 mmol/L (3.5-5.1) 4.1 mmol/L (3.5-5.1) Chloride Level 103 mmol/L (98-107) 106 mmol/L (98-107) Carbon Dioxide Level 21 mmol/L (21-32) 20 mmol/L (21-32) Anion Gap 13 (6-14) 16 mmol/L (6-14) 14 (6-14) Blood Urea Nitrogen 20 mg/dL (8-26) 26 mg/dL (8-26) Creatinine 6.3 mg/dL (0.7-1.3) 7.3 mg/dL (0.7-1.3) Estimated GFR (Cockcroft-Gault) 8.8 8.9 BUN/Creatinine Ratio 3 (6-20) Glucose Level 113 mg/dL (70-99) 106 mg/dL (70-99) 93 mg/dL (70-99) Calcium Level 8.9 mg/dL (8.5-10.1) 8.1 mg/dL (8.5-10.1) Total Bilirubin 0.7 mg/dL (0.2-1.0) Aspartate Amino Transf (AST/SGOT) 48 U/L (15-37) Alanine Aminotransferase (ALT/SGPT) 35 U/L (16-63) Alkaline Phosphatase 191 U/L (46-116) Creatine Kinase 147 U/L (39-308) Total Protein 8.4 g/dL (6.4-8.2) Albumin 3.0 g/dL (3.4-5.0) Albumin/Globulin Ratio 0.6 (1.0-1.7) Bedside Hemoglobin 11.6 g/dL (14-18) Bedside Hematocrit 34 % (37-52) Bedside Sodium 139 mmol/L (135-145) Bedside Potassium 3.7 mmol/L (3.5-5.0) Bedside Chloride 107 mmol/L (98-110) Bedside Total CO2 21 mmol/L (23-32) Bedside Blood Urea Nitrogen 21 mg/dL (8-26) Bedside Creatinine 6.5 mg/dL (0.5-1.4) Bedside Ionized Calcium (Lorene) 1.10 mmol/L (1.13-1.32) Bedside Troponin I 0.03 ng/ml (<0.08) Laboratory Tests Test 12/31/16 19:19 12/31/16 19:22 01/01/17 07:14 White Blood Count 6.2 x10^3/uL (4.0-11.0) Red Blood Count 3.55 x10^6/uL (4.30-5.70) Hemoglobin 10.7 g/dL (13.0-17.5) Hematocrit 31.9 % (39.0-53.0) Mean Corpuscular Volume 90 fL (79-100) Mean Corpuscular Hemoglobin 30 pg (25-35) Mean Corpuscular Hemoglobin Concent 34 g/dL (31-37) Red Cell Distribution Width 16.1 % (11.5-14.5) Platelet Count 106 x10^3/uL (140-400) Neutrophils (%) (Auto) 78 % (31-73) Lymphocytes (%) (Auto) 6 % (24-48) Monocytes (%) (Auto) 16 % (0-9) Eosinophils (%) (Auto) 0 % (0-3) Basophils (%) (Auto) 0 % (0-3) Neutrophils # (Auto) 4.8 x10^3uL (1.8-7.7) Lymphocytes # (Auto) 0.4 x10^3/uL (1.0-4.8) Monocytes # (Auto) 1.0 x10^3/uL (0.0-1.1) Eosinophils # (Auto) 0.0 x10^3/uL (0.0-0.7) Basophils # (Auto) 0.0 x10^3/uL (0.0-0.2) Sodium Level 137 mmol/L (136-145) 140 mmol/L (136-145) Potassium Level 3.7 mmol/L (3.5-5.1) 4.1 mmol/L (3.5-5.1) Chloride Level 103 mmol/L (98-107) 106 mmol/L (98-107) Carbon Dioxide Level 21 mmol/L (21-32) 20 mmol/L (21-32) Anion Gap 13 (6-14) 16 mmol/L (6-14) 14 (6-14) Blood Urea Nitrogen 20 mg/dL (8-26) 26 mg/dL (8-26) Creatinine 6.3 mg/dL (0.7-1.3) 7.3 mg/dL (0.7-1.3) Estimated GFR (Cockcroft-Gault) 8.8 8.9 BUN/Creatinine Ratio 3 (6-20) Glucose Level 113 mg/dL (70-99) 106 mg/dL (70-99) 93 mg/dL (70-99) Calcium Level 8.9 mg/dL (8.5-10.1) 8.1 mg/dL (8.5-10.1) Total Bilirubin 0.7 mg/dL (0.2-1.0) Aspartate Amino Transf (AST/SGOT) 48 U/L (15-37) Alanine Aminotransferase (ALT/SGPT) 35 U/L (16-63) Alkaline Phosphatase 191 U/L (46-116) Creatine Kinase 147 U/L (39-308) Total Protein 8.4 g/dL (6.4-8.2) Albumin 3.0 g/dL (3.4-5.0) Albumin/Globulin Ratio 0.6 (1.0-1.7) Bedside Hemoglobin 11.6 g/dL (14-18) Bedside Hematocrit 34 % (37-52) Bedside Sodium 139 mmol/L (135-145) Bedside Potassium 3.7 mmol/L (3.5-5.0) Bedside Chloride 107 mmol/L (98-110) Bedside Total CO2 21 mmol/L (23-32) Bedside Blood Urea Nitrogen 21 mg/dL (8-26) Bedside Creatinine 6.5 mg/dL (0.5-1.4) Bedside Ionized Calcium (Lorene) 1.10 mmol/L (1.13-1.32) Bedside Troponin I 0.03 ng/ml (<0.08) VTE Prophylaxis Ordered VTE Prophylaxis Devices: Yes VTE Pharmacological Prophylaxi: Yes Assessment/Plan Assessment/Plan possible syncope AMS, possible metabolic encephalopathy htn ESRD on HD TTS recent + bacteremia with gram neg R, gram pos C in the renal clinic hyperthermia plan: renal, id, card, neuro consult check orthostatic BP cont home meds HD tts on zosyn and vanco for now, fu bcx tele monitor dvt ppx FEMI ENNIS MD Jan 01, 2017 13:00
--- NOTE | 2017-01-01 13:53 | PDOC2 ---
CONSULT Date of Consult Date of Consult DATE: 01/01/17 TIME: 13:47 Reason for Consult Reason for Consult: Syncope, coronary artery disease Referring Physician Referring Physician: Dr. Baugh Identification/Chief Complaint Chief Complaint The patient was found passed out in his car yesterday. Problems: Source Source: Patient History of Present Illness Reason for Visit: The patient is a 71-year-old male with a history of end-stage renal disease on hemodialysis, hypertension and coronary artery disease uncertain degree. He had a hemodialysis run yesterday and drove himself home. In route he stopped it several locations. He then remembers driving into his driveway but remembers no other history. He was found minimally responsive in his car. Paramedics were called. Initially the patient was minimally responsive but improved significantly in the transport time. He has been treated overnight and is feeling much better today. He can discuss his story as noted above. He has received antibiotics and fluids. He reports a history of coronary disease but at this time he is uncertain as to the extent and nature of his coronary disease. He does receive hemodialysis on Monday and Monday. Overall he states he has been doing reasonably well until yesterday. Past Medical History Cardiovascular: CAD, HTN GI: Constipation Heme/Onc: Anemia NOS Renal/: Chronic renal insuff, Chronic renal failure Endocrine: Hyperparathyroidism Past Surgical History Past Surgical History: Other (fistula placement) Family History Family History: Hypertension, Kidney Disease Social History No ALCOHOL: none Drugs: None Current Problem List Problem List Problems Medical Problems: (1) Cardiac arrhythmia Status: Acute (2) Paired ventricular premature complexes Status: Acute (3) Syncope Status: Acute Current Medications Current Medications Current Medications Sodium Chloride 1,000 ml @ 1,000 mls/hr 1X ONCE IV Last administered on 19:15; Start 12/31/16 at 19:15; Stop 12/31/16 at 20:14; Status DC Amlodipine Besylate (Norvasc) 10 mg BID PO Last administered on 01/01/17 11:50 ; Start 01/01/17 at 10:00 Minoxidil (Loniten) 10 mg DAILY PO Last administered on 01/01/17 11:50; Start 01/01/17 at 10:00 Acetaminophen (Tylenol) 650 mg PRN Q6HRS PRN PO FEVER; Start 01/01/17 at 10:00 Ondansetron HCl (Zofran) 4 mg PRN Q6HRS PRN IV NAUSEA/VOMITING; Start 01/01/17 at 10:00 Morphine Sulfate 2 mg PRN Q2HR PRN IV PAIN; Start 01/01/17 at 10:00 Tramadol HCl (Ultram) 50 mg PRN Q6HRS PRN PO PAIN; Start 01/01/17 at 10:00 Hydralazine HCl (Apresoline) 10 mg PRN Q4HRS PRN IVP ELEVATED BP, SEE COMMENTS ; Start 01/01/17 at 10:00 Docusate Sodium (Colace) 100 mg PRN DAILY PRN PO CONSTIPATION; Start 01/01/17 at 10:00 Heparin Sodium (Porcine) (Heparin Sq) 5,000 unit Q8HRS SQ Last administered on 01/01/17t 11:53; Start 01/01/17 at 10:00 Calcium Acetate (Phoslo) 667 mg TIDWMEALS PO ; Start 01/01/17 at 12:00; Stop at 12:04; Status DC Vancomycin HCl (Vanco Per Pharmacy) 1 each PRN DAILY PRN MC SEE COMMENTS; Start 01/01/17 at 11:45 Piperacillin Sod/ Tazobactam Sod 2.25 gm/Sodium Chloride 50 ml @ 100 mls/hr Q8HRS IV Last administered on 01/01/17t 12:53; Start 01/01/17 at 13:00 Vancomycin HCl 2 gm/Sodium Chloride 500 ml @ 250 mls/hr 1X ONCE IV ; Start at 13:00; Stop 01/01/17 at 14:59 Calcium Acetate (Phoslo) 667 mg BIDWMEALS PO ; Start 01/01/17 at 17:00 Darbepoetin Kush (Aranesp) 60 mcg Angel SQ ; Start 01/01/17 at 21:00 Active Scripts Active Reported Calphron (Calcium Acetate) 667 Mg Tablet 667 Mg PO TIDWMEALS Minoxidil 2.5 Mg Tablet 10 Mg PO DAILY Norvasc (Amlodipine Besylate) 10 Mg Tablet 10 Mg PO BID Allergies Allergies: Coded Allergies: No Known Drug Allergies (Unverified , 12/31/16) ROS General: YES: Fatigue Cardiovascular: yes Other (syncope) Physical Exam General: No acute distress HEENT: Atraumatic Lungs: Other (mildly decreased breath sounds) Heart: Other (regular rate rhythm with a 2/6 systolic murmur.) Abdomen: Normal bowel sounds Vitals VITALS Vital Signs Date Time Temp Pulse Resp B/P (MAP) Pulse Ox O2 Delivery O2 Flow Rate FiO2 01/01/17 11:50 66 151/71 01/01/17 11:00 98.1 16 94 Room Air 98.1 Labs Labs Laboratory Tests Test 12/31/16 19:19 12/31/16 19:22 01/01/17 07:14 White Blood Count 6.2 x10^3/uL (4.0-11.0) Red Blood Count 3.55 x10^6/uL (4.30-5.70) Hemoglobin 10.7 g/dL (13.0-17.5) Hematocrit 31.9 % (39.0-53.0) Mean Corpuscular Volume 90 fL (79-100) Mean Corpuscular Hemoglobin 30 pg (25-35) Mean Corpuscular Hemoglobin Concent 34 g/dL (31-37) Red Cell Distribution Width 16.1 % (11.5-14.5) Platelet Count 106 x10^3/uL (140-400) Neutrophils (%) (Auto) 78 % (31-73) Lymphocytes (%) (Auto) 6 % (24-48) Monocytes (%) (Auto) 16 % (0-9) Eosinophils (%) (Auto) 0 % (0-3) Basophils (%) (Auto) 0 % (0-3) Neutrophils # (Auto) 4.8 x10^3uL (1.8-7.7) Lymphocytes # (Auto) 0.4 x10^3/uL (1.0-4.8) Monocytes # (Auto) 1.0 x10^3/uL (0.0-1.1) Eosinophils # (Auto) 0.0 x10^3/uL (0.0-0.7) Basophils # (Auto) 0.0 x10^3/uL (0.0-0.2) Sodium Level 137 mmol/L (136-145) 140 mmol/L (136-145) Potassium Level 3.7 mmol/L (3.5-5.1) 4.1 mmol/L (3.5-5.1) Chloride Level 103 mmol/L (98-107) 106 mmol/L (98-107) Carbon Dioxide Level 21 mmol/L (21-32) 20 mmol/L (21-32) Anion Gap 13 (6-14) 16 mmol/L (6-14) 14 (6-14) Blood Urea Nitrogen 20 mg/dL (8-26) 26 mg/dL (8-26) Creatinine 6.3 mg/dL (0.7-1.3) 7.3 mg/dL (0.7-1.3) Estimated GFR (Cockcroft-Gault) 8.8 8.9 BUN/Creatinine Ratio 3 (6-20) Glucose Level 113 mg/dL (70-99) 106 mg/dL (70-99) 93 mg/dL (70-99) Calcium Level 8.9 mg/dL (8.5-10.1) 8.1 mg/dL (8.5-10.1) Total Bilirubin 0.7 mg/dL (0.2-1.0) Aspartate Amino Transf (AST/SGOT) 48 U/L (15-37) Alanine Aminotransferase (ALT/SGPT) 35 U/L (16-63) Alkaline Phosphatase 191 U/L (46-116) Creatine Kinase 147 U/L (39-308) Total Protein 8.4 g/dL (6.4-8.2) Albumin 3.0 g/dL (3.4-5.0) Albumin/Globulin Ratio 0.6 (1.0-1.7) Bedside Hemoglobin 11.6 g/dL (14-18) Bedside Hematocrit 34 % (37-52) Bedside Sodium 139 mmol/L (135-145) Bedside Potassium 3.7 mmol/L (3.5-5.0) Bedside Chloride 107 mmol/L (98-110) Bedside Total CO2 21 mmol/L (23-32) Bedside Blood Urea Nitrogen 21 mg/dL (8-26) Bedside Creatinine 6.5 mg/dL (0.5-1.4) Bedside Ionized Calcium (Lorene) 1.10 mmol/L (1.13-1.32) Bedside Troponin I 0.03 ng/ml (<0.08) Laboratory Tests Test 12/31/16 19:19 12/31/16 19:22 01/01/17 07:14 White Blood Count 6.2 x10^3/uL (4.0-11.0) Red Blood Count 3.55 x10^6/uL (4.30-5.70) Hemoglobin 10.7 g/dL (13.0-17.5) Hematocrit 31.9 % (39.0-53.0) Mean Corpuscular Volume 90 fL (79-100) Mean Corpuscular Hemoglobin 30 pg (25-35) Mean Corpuscular Hemoglobin Concent 34 g/dL (31-37) Red Cell Distribution Width 16.1 % (11.5-14.5) Platelet Count 106 x10^3/uL (140-400) Neutrophils (%) (Auto) 78 % (31-73) Lymphocytes (%) (Auto) 6 % (24-48) Monocytes (%) (Auto) 16 % (0-9) Eosinophils (%) (Auto) 0 % (0-3) Basophils (%) (Auto) 0 % (0-3) Neutrophils # (Auto) 4.8 x10^3uL (1.8-7.7) Lymphocytes # (Auto) 0.4 x10^3/uL (1.0-4.8) Monocytes # (Auto) 1.0 x10^3/uL (0.0-1.1) Eosinophils # (Auto) 0.0 x10^3/uL (0.0-0.7) Basophils # (Auto) 0.0 x10^3/uL (0.0-0.2) Sodium Level 137 mmol/L (136-145) 140 mmol/L (136-145) Potassium Level 3.7 mmol/L (3.5-5.1) 4.1 mmol/L (3.5-5.1) Chloride Level 103 mmol/L (98-107) 106 mmol/L (98-107) Carbon Dioxide Level 21 mmol/L (21-32) 20 mmol/L (21-32) Anion Gap 13 (6-14) 16 mmol/L (6-14) 14 (6-14) Blood Urea Nitrogen 20 mg/dL (8-26) 26 mg/dL (8-26) Creatinine 6.3 mg/dL (0.7-1.3) 7.3 mg/dL (0.7-1.3) Estimated GFR (Cockcroft-Gault) 8.8 8.9 BUN/Creatinine Ratio 3 (6-20) Glucose Level 113 mg/dL (70-99) 106 mg/dL (70-99) 93 mg/dL (70-99) Calcium Level 8.9 mg/dL (8.5-10.1) 8.1 mg/dL (8.5-10.1) Total Bilirubin 0.7 mg/dL (0.2-1.0) Aspartate Amino Transf (AST/SGOT) 48 U/L (15-37) Alanine Aminotransferase (ALT/SGPT) 35 U/L (16-63) Alkaline Phosphatase 191 U/L (46-116) Creatine Kinase 147 U/L (39-308) Total Protein 8.4 g/dL (6.4-8.2) Albumin 3.0 g/dL (3.4-5.0) Albumin/Globulin Ratio 0.6 (1.0-1.7) Bedside Hemoglobin 11.6 g/dL (14-18) Bedside Hematocrit 34 % (37-52) Bedside Sodium 139 mmol/L (135-145) Bedside Potassium 3.7 mmol/L (3.5-5.0) Bedside Chloride 107 mmol/L (98-110) Bedside Total CO2 21 mmol/L (23-32) Bedside Blood Urea Nitrogen 21 mg/dL (8-26) Bedside Creatinine 6.5 mg/dL (0.5-1.4) Bedside Ionized Calcium (Lorene) 1.10 mmol/L (1.13-1.32) Bedside Troponin I 0.03 ng/ml (<0.08) Assessment/Plan Assessment/Plan 1. Probable syncope. As noted above the patient was found unresponsive in his car and hypothermic at the time. Rhythm remains stable overnight. Patient does report a history of coronary disease. At this time will continue on telemetry. Check troponins. We will obtain old records and check an echocardiogram. 2. End-stage renal disease on hemodialysis. As per the renal service. 3. Possible early sepsis. Has been evaluated by the ID service. Cultures obtained and antibiotics started. 4. Hypertension. Will continue on present treatments. 5. Hyperparathyroidism. As per the primary service. Thank you for allowing us to participate in the care of your patient. BROCK SERNA MD Jan 01, 2017 13:53
[2017-01-01] MEDS: VANCOMYCIN PER PHARMACY MC PRN (14:25)
[2017-01-01] MEDS ORDERED: LOVA40TA2 PO (17:05)
[2017-01-01] MEDS: CALCIUM ACETATE 667 MG CAPSULE PO SCH (17:23)
[2017-01-01] MEDS ORDERED: DARBEPOETIN ALFA 60 MCG/0.3 ML DISP.SYRIN. SQ SCH (21:00)
[2017-01-01] MEDS: ATORVASTATIN CALCIUM 10 MG TABLET. PO SCH (21:00)
[2017-01-02 03:15] VITALS: BP 128/67
[2017-01-02] MEDS: PIPERACILLIN/TAZOBACTAM 2.25 GM in IV NORMAL SALINE 50ML 50 ML IV SCH ×3 (05:09→21:57)
[2017-01-02] MEDS: HEPARIN PF for SUB-Q USE 5,000 UNIT/0.5 ML VIAL. SQ SCH ×3 (05:10→22:04)
[2017-01-02 05:19] LABS: BASO % 1 % (0-3); EOS % 2 % (0-3); HEMATOCRIT 33.3 % (39.0-53.0); HEMOGLOBIN 10.8 g/dL (13.0-17.5); LYMPH # 0.6 x10^3/uL (1.0-4.8); LYMPH % 14 % (24-48); MEAN CORPUSCULAR HEMOGLOBIN 30 pg (25-35); MEAN CORPUSCULAR HGB CONC 32 g/dL (31-37); MEAN CORPUSCULAR VOLUME 93 fL (79-100); MONO % 18 % (0-9); NEUT % 66 % (31-73); PLATELET COUNT 113 x10^3/uL (140-400); RED CELL DISTRIBUTION WIDTH 16.2 % (11.5-14.5); WHITE BLOOD COUNT 4.1 x10^3/uL (4.0-11.0)
[2017-01-02 05:44] LABS: CALCIUM 7.7 mg/dL (8.5-10.1); CREATININE 8.9 mg/dL (0.7-1.3); GFR 7.1; POTASSIUM 4.2 mmol/L (3.5-5.1)
[2017-01-02 05:57] LABS: CHOLESTEROL/HDL RATIO 3.5
[2017-01-02 07:00] VITALS: BP 132/72
[2017-01-02] MEDS: CALCIUM ACETATE 667 MG CAPSULE PO SCH ×2 (08:41→16:02)
[2017-01-02] MEDS: amLODIPine BESYLATE 10 MG TABLET PO SCH ×2 (08:41→21:56)
[2017-01-02] MEDS: MINOXIDIL 2.5 MG TABLET PO SCH (08:42)
[2017-01-02] MEDS: VANCOMYCIN PER PHARMACY MC PRN (09:11)
--- NOTE | 2017-01-02 09:20 | PDOC ---
Infectious Disease Note Subjective Subjective Feeling whole lot better Appetite good Denies F/C/S or aches ROS ROS CV: Denies chest pain RESP: Denies shortness of air, cough GI: Denies n/v/d NEURO: Denies confusion Vital Sign Vital Signs Vital Signs Date Time Temp Pulse Resp B/P (MAP) Pulse Ox O2 Delivery O2 Flow Rate FiO2 01/02/17 08:42 67 132/72 01/02/17 07:00 98.0 20 90 Room Air 98.0 Physical Exam PHYSICAL EXAM GENERAL: Lying down, watching TV, smiling HEENT: OC/OP pink LUNGS: Clear HEART: S1 and S2 ABD: Soft, NT EXT: No edema, no cyanosis. 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, oriented x 3, no focal neurologic deficit SKIN: No rash IV: ok Labs Lab Laboratory Tests Test 01/02/17 03:35 White Blood Count 4.1 x10^3/uL (4.0-11.0) Red Blood Count 3.60 x10^6/uL (4.30-5.70) Hemoglobin 10.8 g/dL (13.0-17.5) Hematocrit 33.3 % (39.0-53.0) Mean Corpuscular Volume 93 fL (79-100) Mean Corpuscular Hemoglobin 30 pg (25-35) Mean Corpuscular Hemoglobin Concent 32 g/dL (31-37) Red Cell Distribution Width 16.2 % (11.5-14.5) Platelet Count 113 x10^3/uL (140-400) Neutrophils (%) (Auto) 66 % (31-73) Lymphocytes (%) (Auto) 14 % (24-48) Monocytes (%) (Auto) 18 % (0-9) Eosinophils (%) (Auto) 2 % (0-3) Basophils (%) (Auto) 1 % (0-3) Neutrophils # (Auto) 2.7 x10^3uL (1.8-7.7) Lymphocytes # (Auto) 0.6 x10^3/uL (1.0-4.8) Monocytes # (Auto) 0.7 x10^3/uL (0.0-1.1) Eosinophils # (Auto) 0.1 x10^3/uL (0.0-0.7) Basophils # (Auto) 0.0 x10^3/uL (0.0-0.2) Sodium Level 140 mmol/L (136-145) Potassium Level 4.2 mmol/L (3.5-5.1) Chloride Level 106 mmol/L (98-107) Carbon Dioxide Level 22 mmol/L (21-32) Anion Gap 12 (6-14) Blood Urea Nitrogen 37 mg/dL (8-26) Creatinine 8.9 mg/dL (0.7-1.3) Estimated GFR (Cockcroft-Gault) 7.1 Glucose Level 90 mg/dL (70-99) Calcium Level 7.7 mg/dL (8.5-10.1) Troponin I Quantitative 0.037 ng/mL (0.000-0.055) Triglycerides Level 90 mg/dL (0-150) Cholesterol Level 88 mg/dL (0-200) LDL Cholesterol, Calculated 45 mg/dL (0-100) VLDL Cholesterol, Calculated 18 mg/dL (0-40) Non-HDL Cholesterol Calculated 63 mg/dL (0-129) HDL Cholesterol 25 mg/dL (40-60) Cholesterol/HDL Ratio 3.5 Objective Assessment ? Sepsis + cults from 12/27 at HD both bottles GNR/GPC per report from Dr. Kuo CKD on HD ? Syncope Acute encephalopathy - better CAD with h/o cath Plan Plan of Care Haroldo Cabrera/nany Cantu RN, [facility]. Copy of micro results requested. .Reviewed too prelim now Blood cults from 01/01 pending Attending Co-Sign Attending Co-Sign The patient was seen and interviewed as well as examined at the bedside. The chart was reviewed. The case was discussed. Agree with the plan of care. RAHEEL CURRAN APRN Jan 02, 2017 09:20 JAMSHID FRTIZ MD Jan 02, 2017 16:38
--- NOTE | 2017-01-02 10:38 | PDOC ---
SUBJECTIVE ROS ESRD doign and feeling well overall CVS: no Orthopnea, no CP RESP: no SOB, no LYNCH GI: no Nausea, no Vomiting : no Dysuria, no Urgency OBJECTIVE Vital Signs Vital Signs Date Time Temp Pulse Resp B/P (MAP) Pulse Ox O2 Delivery O2 Flow Rate FiO2 01/02/17 08:42 67 132/72 01/02/17 07:00 98.0 20 90 Room Air 98.0 I & 0 Intake and Output 01/02/17 07:00 Intake Total 1400 ml Output Total 550 ml Balance 850 ml Intake Oral 1400 ml Output Urine Total 550 ml PHYSICAL EXAM Physical Exam GEN: Awake, Oriented x 3, In no distress EYES: Vision Unchanged, Conjunctiva Normal EN: No EN Drainage, Mucous Membranes moist NECK: no JVD, no JVP, Supple, no Thyromegaly CVS: S1S2, ? soft Murmur, No Gallop, No Rub,no Edema RESP: no Rales, no Rhonchi,no Acc. Muscle Use GI: BS + ve, NO Bruit, Non Tender, Non Distended : no CVA tenderness, no Suprapubic Tenderness DIAGNOSIS/ASSESSMENT Assessment & Plan ESRD: Current fluid and E-lyte status does not necessitate emergent need for dialysis. Will re-evaluate for dialysis in the am and continue on TTSat schedule. ANEMIA; ct Aranesp as ordered, Transfuse with next HD if hgb < 7 HTN: well controlled on Current BP meds as reviewed. See orders for changes. Low floresita bianka - check mag and alb BONE & MINERAL: Follow phos and alter binder regimen based on PO intake and trend Bacteremia - ? Source - await ID w/up - will f/up cx from O PHD when finalized Discussed Plan of Care with pt at bedside Problems: COMMENT/RELEVANT DATA Meds Current Medications Medications (Trade) Dose Ordered Sig/Elli Start Time Stop Time Status Last Admin Dose Admin Acetaminophen (Tylenol) 650 mg PRN Q6HRS PRN 01/01/17 10:00 Amlodipine Besylate (Norvasc) 10 mg BID 01/01/17 10:00 01/02/17 08:41 10 MG Atorvastatin Calcium (Lipitor) 10 mg QHS 01/01/17 21:00 01/01/17 21:00 10 MG Calcium Acetate (Phoslo) 667 mg BIDWMEALS 01/01/17 17:00 01/02/17 08:41 667 MG Darbepoetin Kush (Aranesp) 60 mcg Angel 01/01/17 21:00 01/01/17 21:02 60 MCG Docusate Sodium (Colace) 100 mg PRN DAILY PRN 01/01/17 10:00 Heparin Sodium (Porcine) (Heparin Sq) 5,000 unit Q8HRS 01/01/17 10:00 01/02/17 05:10 5,000 UNIT Hydralazine HCl (Apresoline) 10 mg PRN Q4HRS PRN 01/01/17 10:00 Minoxidil (Loniten) 10 mg DAILY 01/01/17 10:00 01/02/17 08:42 10 MG Morphine Sulfate 2 mg PRN Q2HR PRN 01/01/17 10:00 Ondansetron HCl (Zofran) 4 mg PRN Q6HRS PRN 01/01/17 10:00 Piperacillin Sod/ Tazobactam Sod 2.25 gm/Sodium Chloride 50 ml @ 100 mls/hr Q8HRS 01/01/17 13:00 01/02/17 05:09 100 MLS/HR Sodium Chloride 1,000 ml @ 1,000 mls/hr 1X ONCE 12/31/16 19:15 12/31/16 20:14 DC 12/31/16 19:15 1,000 MLS/HR Tramadol HCl (Ultram) 50 mg PRN Q6HRS PRN 01/01/17 10:00 Vancomycin HCl 1 each 1X ONCE 01/03/17 05:00 01/03/17 05:01 Vancomycin HCl (Vanco Per Pharmacy) 1 each PRN DAILY PRN 01/01/17 11:45 01/02/17 09:11 1 EACH Vancomycin HCl 2 gm/Sodium Chloride 500 ml @ 250 mls/hr 1X ONCE 01/01/17 13:00 01/01/17 14:59 DC 01/01/17 13:59 250 MLS/HR Lab Laboratory Tests Test 01/02/17 03:35 White Blood Count 4.1 x10^3/uL (4.0-11.0) Red Blood Count 3.60 x10^6/uL (4.30-5.70) Hemoglobin 10.8 g/dL (13.0-17.5) Hematocrit 33.3 % (39.0-53.0) Mean Corpuscular Volume 93 fL (79-100) Mean Corpuscular Hemoglobin 30 pg (25-35) Mean Corpuscular Hemoglobin Concent 32 g/dL (31-37) Red Cell Distribution Width 16.2 % (11.5-14.5) Platelet Count 113 x10^3/uL (140-400) Neutrophils (%) (Auto) 66 % (31-73) Lymphocytes (%) (Auto) 14 % (24-48) Monocytes (%) (Auto) 18 % (0-9) Eosinophils (%) (Auto) 2 % (0-3) Basophils (%) (Auto) 1 % (0-3) Neutrophils # (Auto) 2.7 x10^3uL (1.8-7.7) Lymphocytes # (Auto) 0.6 x10^3/uL (1.0-4.8) Monocytes # (Auto) 0.7 x10^3/uL (0.0-1.1) Eosinophils # (Auto) 0.1 x10^3/uL (0.0-0.7) Basophils # (Auto) 0.0 x10^3/uL (0.0-0.2) Sodium Level 140 mmol/L (136-145) Potassium Level 4.2 mmol/L (3.5-5.1) Chloride Level 106 mmol/L (98-107) Carbon Dioxide Level 22 mmol/L (21-32) Anion Gap 12 (6-14) Blood Urea Nitrogen 37 mg/dL (8-26) Creatinine 8.9 mg/dL (0.7-1.3) Estimated GFR (Cockcroft-Gault) 7.1 Glucose Level 90 mg/dL (70-99) Calcium Level 7.7 mg/dL (8.5-10.1) Troponin I Quantitative 0.037 ng/mL (0.000-0.055) Triglycerides Level 90 mg/dL (0-150) Cholesterol Level 88 mg/dL (0-200) LDL Cholesterol, Calculated 45 mg/dL (0-100) VLDL Cholesterol, Calculated 18 mg/dL (0-40) Non-HDL Cholesterol Calculated 63 mg/dL (0-129) HDL Cholesterol 25 mg/dL (40-60) Cholesterol/HDL Ratio 3.5 FRANCO SQUIRES MD Jan 02, 2017 10:38
[2017-01-02] MEDS ORDERED: MAGNESIUM SULFATE 2GM 50 ML IV PRN (10:45)
[2017-01-02 11:00] VITALS: BP 154/70
[2017-01-02] MEDS ORDERED: CONTRAST GIVEN MC PRN (11:45)
--- NOTE | 2017-01-02 11:49 | PDOC ---
PROGRESS NOTES Chief Complaint Chief Complaint possible syncope AMS, possible metabolic encephalopathy, resolved htn ESRD on HD TTS recent + bacteremia with gram neg R, gram pos C in the renal clinic hyperthermia plan: renal, id, card, neuro consult check orthostatic BP cont home meds HD ttsat on zosyn and vanco for now, fu bcx tele monitor, some Q wave drop, fu with card, echo pending dvt ppx History of Present Illness History of Present Illness feels ok, wants to go home still denies heart problem before admits taking abx when i asked him again, but didnot tell me bacteremia Vitals Vitals Vital Signs Date Time Temp Pulse Resp B/P (MAP) Pulse Ox O2 Delivery O2 Flow Rate FiO2 01/02/17 11:00 97.6 65 20 154/70 (98) 95 Room Air 97.6 Physical Exam General: Alert, Oriented X3, Cooperative, No acute distress Heart: Regular rate, Normal S1, Normal S2, Other (regular rate rhythm with a 2/ 6 systolic murmur.) Lungs: Clear Abdomen: Normal bowel sounds Extremities: No clubbing Skin: No breakdown Labs LABS Laboratory Tests Test 01/02/17 03:35 White Blood Count 4.1 x10^3/uL (4.0-11.0) Red Blood Count 3.60 x10^6/uL (4.30-5.70) Hemoglobin 10.8 g/dL (13.0-17.5) Hematocrit 33.3 % (39.0-53.0) Mean Corpuscular Volume 93 fL (79-100) Mean Corpuscular Hemoglobin 30 pg (25-35) Mean Corpuscular Hemoglobin Concent 32 g/dL (31-37) Red Cell Distribution Width 16.2 % (11.5-14.5) Platelet Count 113 x10^3/uL (140-400) Neutrophils (%) (Auto) 66 % (31-73) Lymphocytes (%) (Auto) 14 % (24-48) Monocytes (%) (Auto) 18 % (0-9) Eosinophils (%) (Auto) 2 % (0-3) Basophils (%) (Auto) 1 % (0-3) Neutrophils # (Auto) 2.7 x10^3uL (1.8-7.7) Lymphocytes # (Auto) 0.6 x10^3/uL (1.0-4.8) Monocytes # (Auto) 0.7 x10^3/uL (0.0-1.1) Eosinophils # (Auto) 0.1 x10^3/uL (0.0-0.7) Basophils # (Auto) 0.0 x10^3/uL (0.0-0.2) Sodium Level 140 mmol/L (136-145) Potassium Level 4.2 mmol/L (3.5-5.1) Chloride Level 106 mmol/L (98-107) Carbon Dioxide Level 22 mmol/L (21-32) Anion Gap 12 (6-14) Blood Urea Nitrogen 37 mg/dL (8-26) Creatinine 8.9 mg/dL (0.7-1.3) Estimated GFR (Cockcroft-Gault) 7.1 Glucose Level 90 mg/dL (70-99) Calcium Level 7.7 mg/dL (8.5-10.1) Troponin I Quantitative 0.037 ng/mL (0.000-0.055) Triglycerides Level 90 mg/dL (0-150) Cholesterol Level 88 mg/dL (0-200) LDL Cholesterol, Calculated 45 mg/dL (0-100) VLDL Cholesterol, Calculated 18 mg/dL (0-40) Non-HDL Cholesterol Calculated 63 mg/dL (0-129) HDL Cholesterol 25 mg/dL (40-60) Cholesterol/HDL Ratio 3.5 Assessment and Plan Assessmemt and Plan Problems Medical Problems: (1) Cardiac arrhythmia Status: Acute (2) Paired ventricular premature complexes Status: Acute (3) Syncope Status: Acute Problems: Comment Review of Relevant I have reviewed the following items cal (where applicable) has been applied. Labs Laboratory Tests Test 12/31/16 19:19 12/31/16 19:22 01/01/17 07:14 01/02/17 03:35 White Blood Count 6.2 x10^3/uL (4.0-11.0) 4.1 x10^3/uL (4.0-11.0) Red Blood Count 3.55 x10^6/uL (4.30-5.70) 3.60 x10^6/uL (4.30-5.70) Hemoglobin 10.7 g/dL (13.0-17.5) 10.8 g/dL (13.0-17.5) Hematocrit 31.9 % (39.0-53.0) 33.3 % (39.0-53.0) Mean Corpuscular Volume 90 fL (79-100) 93 fL (79-100) Mean Corpuscular Hemoglobin 30 pg (25-35) 30 pg (25-35) Mean Corpuscular Hemoglobin Concent 34 g/dL (31-37) 32 g/dL (31-37) Red Cell Distribution Width 16.1 % (11.5-14.5) 16.2 % (11.5-14.5) Platelet Count 106 x10^3/uL (140-400) 113 x10^3/uL (140-400) Neutrophils (%) (Auto) 78 % (31-73) 66 % (31-73) Lymphocytes (%) (Auto) 6 % (24-48) 14 % (24-48) Monocytes (%) (Auto) 16 % (0-9) 18 % (0-9) Eosinophils (%) (Auto) 0 % (0-3) 2 % (0-3) Basophils (%) (Auto) 0 % (0-3) 1 % (0-3) Neutrophils # (Auto) 4.8 x10^3uL (1.8-7.7) 2.7 x10^3uL (1.8-7.7) Lymphocytes # (Auto) 0.4 x10^3/uL (1.0-4.8) 0.6 x10^3/uL (1.0-4.8) Monocytes # (Auto) 1.0 x10^3/uL (0.0-1.1) 0.7 x10^3/uL (0.0-1.1) Eosinophils # (Auto) 0.0 x10^3/uL (0.0-0.7) 0.1 x10^3/uL (0.0-0.7) Basophils # (Auto) 0.0 x10^3/uL (0.0-0.2) 0.0 x10^3/uL (0.0-0.2) Sodium Level 137 mmol/L (136-145) 140 mmol/L (136-145) 140 mmol/L (136-145) Potassium Level 3.7 mmol/L (3.5-5.1) 4.1 mmol/L (3.5-5.1) 4.2 mmol/L (3.5-5.1) Chloride Level 103 mmol/L (98-107) 106 mmol/L (98-107) 106 mmol/L (98-107) Carbon Dioxide Level 21 mmol/L (21-32) 20 mmol/L (21-32) 22 mmol/L (21-32) Anion Gap 13 (6-14) 16 mmol/L (6-14) 14 (6-14) 12 (6-14) Blood Urea Nitrogen 20 mg/dL (8-26) 26 mg/dL (8-26) 37 mg/dL (8-26) Creatinine 6.3 mg/dL (0.7-1.3) 7.3 mg/dL (0.7-1.3) 8.9 mg/dL (0.7-1.3) Estimated GFR (Cockcroft-Gault) 8.8 8.9 7.1 BUN/Creatinine Ratio 3 (6-20) Glucose Level 113 mg/dL (70-99) 106 mg/dL (70-99) 93 mg/dL (70-99) 90 mg/dL (70-99) Calcium Level 8.9 mg/dL (8.5-10.1) 8.1 mg/dL (8.5-10.1) 7.7 mg/dL (8.5-10.1) Total Bilirubin 0.7 mg/dL (0.2-1.0) Aspartate Amino Transf (AST/SGOT) 48 U/L (15-37) Alanine Aminotransferase (ALT/SGPT) 35 U/L (16-63) Alkaline Phosphatase 191 U/L (46-116) Creatine Kinase 147 U/L (39-308) Total Protein 8.4 g/dL (6.4-8.2) Albumin 3.0 g/dL (3.4-5.0) Albumin/Globulin Ratio 0.6 (1.0-1.7) Bedside Hemoglobin 11.6 g/dL (14-18) Bedside Hematocrit 34 % (37-52) Bedside Sodium 139 mmol/L (135-145) Bedside Potassium 3.7 mmol/L (3.5-5.0) Bedside Chloride 107 mmol/L (98-110) Bedside Total CO2 21 mmol/L (23-32) Bedside Blood Urea Nitrogen 21 mg/dL (8-26) Bedside Creatinine 6.5 mg/dL (0.5-1.4) Bedside Ionized Calcium (Lorene) 1.10 mmol/L (1.13-1.32) Bedside Troponin I 0.03 ng/ml (<0.08) Troponin I Quantitative 0.037 ng/mL (0.000-0.055) Triglycerides Level 90 mg/dL (0-150) Cholesterol Level 88 mg/dL (0-200) LDL Cholesterol, Calculated 45 mg/dL (0-100) VLDL Cholesterol, Calculated 18 mg/dL (0-40) Non-HDL Cholesterol Calculated 63 mg/dL (0-129) HDL Cholesterol 25 mg/dL (40-60) Cholesterol/HDL Ratio 3.5 Laboratory Tests Test 01/02/17 03:35 White Blood Count 4.1 x10^3/uL (4.0-11.0) Red Blood Count 3.60 x10^6/uL (4.30-5.70) Hemoglobin 10.8 g/dL (13.0-17.5) Hematocrit 33.3 % (39.0-53.0) Mean Corpuscular Volume 93 fL (79-100) Mean Corpuscular Hemoglobin 30 pg (25-35) Mean Corpuscular Hemoglobin Concent 32 g/dL (31-37) Red Cell Distribution Width 16.2 % (11.5-14.5) Platelet Count 113 x10^3/uL (140-400) Neutrophils (%) (Auto) 66 % (31-73) Lymphocytes (%) (Auto) 14 % (24-48) Monocytes (%) (Auto) 18 % (0-9) Eosinophils (%) (Auto) 2 % (0-3) Basophils (%) (Auto) 1 % (0-3) Neutrophils # (Auto) 2.7 x10^3uL (1.8-7.7) Lymphocytes # (Auto) 0.6 x10^3/uL (1.0-4.8) Monocytes # (Auto) 0.7 x10^3/uL (0.0-1.1) Eosinophils # (Auto) 0.1 x10^3/uL (0.0-0.7) Basophils # (Auto) 0.0 x10^3/uL (0.0-0.2) Sodium Level 140 mmol/L (136-145) Potassium Level 4.2 mmol/L (3.5-5.1) Chloride Level 106 mmol/L (98-107) Carbon Dioxide Level 22 mmol/L (21-32) Anion Gap 12 (6-14) Blood Urea Nitrogen 37 mg/dL (8-26) Creatinine 8.9 mg/dL (0.7-1.3) Estimated GFR (Cockcroft-Gault) 7.1 Glucose Level 90 mg/dL (70-99) Calcium Level 7.7 mg/dL (8.5-10.1) Troponin I Quantitative 0.037 ng/mL (0.000-0.055) Triglycerides Level 90 mg/dL (0-150) Cholesterol Level 88 mg/dL (0-200) LDL Cholesterol, Calculated 45 mg/dL (0-100) VLDL Cholesterol, Calculated 18 mg/dL (0-40) Non-HDL Cholesterol Calculated 63 mg/dL (0-129) HDL Cholesterol 25 mg/dL (40-60) Cholesterol/HDL Ratio 3.5 Medications Current Medications Sodium Chloride 1,000 ml @ 1,000 mls/hr 1X ONCE IV Last administered on 19:15; Start 12/31/16 at 19:15; Stop 12/31/16 at 20:14; Status DC Amlodipine Besylate (Norvasc) 10 mg BID PO Last administered on 01/02/17 08:41 ; Start 01/01/17 at 10:00 Minoxidil (Loniten) 10 mg DAILY PO Last administered on 01/02/17 08:42; Start 01/01/17 at 10:00 Acetaminophen (Tylenol) 650 mg PRN Q6HRS PRN PO FEVER; Start 01/01/17 at 10:00 Ondansetron HCl (Zofran) 4 mg PRN Q6HRS PRN IV NAUSEA/VOMITING; Start 01/01/17 at 10:00 Morphine Sulfate 2 mg PRN Q2HR PRN IV PAIN; Start 01/01/17 at 10:00 Tramadol HCl (Ultram) 50 mg PRN Q6HRS PRN PO PAIN; Start 01/01/17 at 10:00 Hydralazine HCl (Apresoline) 10 mg PRN Q4HRS PRN IVP ELEVATED BP, SEE COMMENTS ; Start 01/01/17 at 10:00 Docusate Sodium (Colace) 100 mg PRN DAILY PRN PO CONSTIPATION; Start 01/01/17 at 10:00 Heparin Sodium (Porcine) (Heparin Sq) 5,000 unit Q8HRS SQ Last administered on 01/02/17 05:10; Start 01/01/17 at 10:00 Calcium Acetate (Phoslo) 667 mg TIDWMEALS PO ; Start 01/01/17 at 12:00; Stop at 12:04; Status DC Vancomycin HCl (Vanco Per Pharmacy) 1 each PRN DAILY PRN MC SEE COMMENTS Last administered on 01/02/17 09:11; Start 01/01/17 at 11:45 Piperacillin Sod/ Tazobactam Sod 2.25 gm/Sodium Chloride 50 ml @ 100 mls/hr Q8HRS IV Last administered on 01/02/17 05:09; Start 01/01/17 at 13:00 Vancomycin HCl 2 gm/Sodium Chloride 500 ml @ 250 mls/hr 1X ONCE IV Last administered on 01/01/17 13:59; Start 01/01/17 at 13:00; Stop 01/01/17 at 14:59 ; Status DC Calcium Acetate (Phoslo) 667 mg BIDWMEALS PO Last administered on 01/02/17 08: 41; Start 01/01/17 at 17:00 Darbepoetin Kush (Aranesp) 60 mcg Angel SQ Last administered on 01/01/17 21:02; Start 01/01/17 at 21:00 Atorvastatin Calcium (Lipitor) 10 mg QHS PO Last administered on 01/01/17 21: 00; Start 01/01/17 at 21:00 Vancomycin HCl 1 each 1X ONCE MC ; Start 01/03/17 at 05:00; Stop 01/03/17 at 05 :01 Magnesium Sulfate/ Dextrose 50 ml @ 25 mls/hr PRN DAILY PRN IV for Mag < 1.7 on am labs; Start 01/02/17 at 10:45 Iohexol (Omnipaque 350 Mg/ml) 75 ml 1X ONCE IV ; Start 01/02/17 at 12:00; Stop 01/02/17 at 12:01 Info (Do NOT chart on this entry -- for MONITORING) 1 each PRN DAILY PRN MC SEE COMMENTS; Start 01/02/17 at 11:45; Stop 01/04/17 at 11:44 Iohexol (Omnipaque 350 Mg/ml) 75 ml 1X ONCE IV ; Start 01/02/17 at 12:15; Stop 01/02/17 at 12:16 Active Scripts Active Reported Lovastatin 40 Mg Tablet 40 Mg PO HS Calphron (Calcium Acetate) 667 Mg Tablet 667 Mg PO TIDWMEALS Minoxidil 2.5 Mg Tablet 10 Mg PO DAILY Norvasc (Amlodipine Besylate) 10 Mg Tablet 10 Mg PO BID Vitals/I & O Vital Sign - Last 24 Hours 01/01/17 01/01/17 01/01/17 01/01/17 11:50 11:50 15:00 15:05 Temp 98.1 98.1 98.1 98.1 Pulse 66 66 64 Resp 16 16 B/P (MAP) 151/71 151/71 142/61 (88) 158/60 (92) Pulse Ox 94 96 O2 Delivery Room Air Room Air 01/01/17 01/01/17 01/01/17 01/01/17 15:10 19:20 19:55 21:00 Temp 98.7 98.2 98.7 98.2 Pulse 96 71 71 Resp 12 20 B/P (MAP) 159/65 (96) 131/65 (87) 131/65 Pulse Ox 96 96 O2 Delivery Room Air Room Air 01/01/17 01/02/17 01/02/17 01/02/17 22:50 03:15 07:00 08:41 Temp 98.3 97.3 98.0 98.3 97.3 98.0 Pulse 67 69 67 67 Resp 18 18 20 B/P (MAP) 129/65 (86) 128/67 (87) 132/72 (92) 132/72 Pulse Ox 94 94 90 O2 Delivery Room Air Room Air Room Air 01/02/17 01/02/17 08:42 11:00 Temp 97.6 97.6 Pulse 67 65 Resp 20 B/P (MAP) 132/72 154/70 (98) Pulse Ox 95 O2 Delivery Room Air Intake and Output 01/01/17 01/01/17 01/02/17 15:00 23:00 07:00 Intake Total 240 ml 600 ml 560 ml Output Total 550 ml Balance 240 ml 50 ml 560 ml Nutrition Consultation Dietary Evaluation: Comments: Continue nutrition care plan Offer snack on unit if intake is < 50% of meals Expected Outcomes/Goals: meet 75% estimated nutrition needs Malnutrition Findings: Reduced Parts Picker Strength: N/A Reduced Parts Picker Strength (Non-Sev: N/A Weight Status: Overweight FEMI ENNIS MD Jan 02, 2017 11:49
[2017-01-02] MEDS ORDERED: IOHEXOL 350 MG/ML 75ML VIAL. IV ONE (12:00)
[2017-01-02] MEDS ORDERED: IOHEXOL 350 MG/ML 100 ML VIAL. IV ONE (12:15)
--- NOTE | 2017-01-02 13:48 | PDOC ---
CARDIO Progress Notes Date and Time Date of Service 01/02/17 Time of Evaluation 1330 Subjective Subjective: No Chest Pain, No shortness of breath, No Palpitations, Other ( wanting to go home ) Vitals Vitals Vital Signs Date Time Temp Pulse Resp B/P (MAP) Pulse Ox O2 Delivery O2 Flow Rate FiO2 01/02/17 11:00 97.6 65 20 154/70 (98) 95 Room Air 97.6 Weight Weight [ ] Input and Output Intake and Output Intake and Output 01/02/17 07:00 Intake Total 1400 ml Output Total 550 ml Balance 850 ml Intake Oral 1400 ml Output Urine Total 550 ml Laboratory Labs Laboratory Tests Test 01/02/17 03:35 White Blood Count 4.1 x10^3/uL (4.0-11.0) Red Blood Count 3.60 x10^6/uL (4.30-5.70) Hemoglobin 10.8 g/dL (13.0-17.5) Hematocrit 33.3 % (39.0-53.0) Mean Corpuscular Volume 93 fL (79-100) Mean Corpuscular Hemoglobin 30 pg (25-35) Mean Corpuscular Hemoglobin Concent 32 g/dL (31-37) Red Cell Distribution Width 16.2 % (11.5-14.5) Platelet Count 113 x10^3/uL (140-400) Neutrophils (%) (Auto) 66 % (31-73) Lymphocytes (%) (Auto) 14 % (24-48) Monocytes (%) (Auto) 18 % (0-9) Eosinophils (%) (Auto) 2 % (0-3) Basophils (%) (Auto) 1 % (0-3) Neutrophils # (Auto) 2.7 x10^3uL (1.8-7.7) Lymphocytes # (Auto) 0.6 x10^3/uL (1.0-4.8) Monocytes # (Auto) 0.7 x10^3/uL (0.0-1.1) Eosinophils # (Auto) 0.1 x10^3/uL (0.0-0.7) Basophils # (Auto) 0.0 x10^3/uL (0.0-0.2) Sodium Level 140 mmol/L (136-145) Potassium Level 4.2 mmol/L (3.5-5.1) Chloride Level 106 mmol/L (98-107) Carbon Dioxide Level 22 mmol/L (21-32) Anion Gap 12 (6-14) Blood Urea Nitrogen 37 mg/dL (8-26) Creatinine 8.9 mg/dL (0.7-1.3) Estimated GFR (Cockcroft-Gault) 7.1 Glucose Level 90 mg/dL (70-99) Calcium Level 7.7 mg/dL (8.5-10.1) Troponin I Quantitative 0.037 ng/mL (0.000-0.055) Triglycerides Level 90 mg/dL (0-150) Cholesterol Level 88 mg/dL (0-200) LDL Cholesterol, Calculated 45 mg/dL (0-100) VLDL Cholesterol, Calculated 18 mg/dL (0-40) Non-HDL Cholesterol Calculated 63 mg/dL (0-129) HDL Cholesterol 25 mg/dL (40-60) Cholesterol/HDL Ratio 3.5 Microbiology Micro Microbiology 01/01/17 Blood Culture - Preliminary, Resulted NO GROWTH AFTER 1 DAY Physical Exam HEENT: Neck Supple W Full Motion Chest: Symmetric LUNGS: Clear to Auscultation Heart: S1S2, RRR, murmurs (2/6 systolic murmur ), other (intermittent bradycardia with PAC's and PVC's - no significant pauses noted on telemetry ) Abdomen: Soft N/T Extremities: No Edema, No Calf Tenderness Neurology: alert, follow commands Assessment Assessment 1. Syncope. Rhythm stable overnight. No significant pauses noted 2. CAD; stable. CP free. Trop neg. X2- AMI ruled out. Continue secondary prevention measures. 3. ESRD on HD; as per the renal service. 4. ? Sepsis. cultures from 12/27 + for GNR/GPC per reports. Antibiotic therapy as per ID. 5. Hypertension. well-controlled with meds. 6. Hyperparathyroidism. As per the primary service Recommendations Preliminary echo with small pericardial effusion. Will obtain CTA of chest to r/ o dissection. Consider event monitor upon discharge Continue supportive care Antibiotic therapy as per ID. Further recommendations pending diagnostics CARLTON MAGANA APRN Jan 02, 2017 13:47
--- NOTE | 2017-01-02 14:21 | PDOC2 ---
NEUROLOGY CONSULT Date of Admission Date of Admission DATE: 01/02/17 TIME: 14:03 Reason for Consult Reason for Consult: IMPRESSION: Loss of consciousness. Syncopal spell. Seizure evaluation. Confusion. Renal failure on dialysis. CAD HTN Hyperparathyroidism. RECOMMENDATIONS/PLAN: EEG Lab: see orders. Treat medical diseases. HISTORY OF THE PRESENT ILLNESS: 71-y-old AA male patient with above medical diseases had an episode after dialysis as loss of consciousness while he was in his car but car was not on running. The temporature inside the car was high and he had perspiration obviously. No shaking, jaerking or celia movements noted. No focalized sensory or motor deficits reported. PAST MEDICAL HISTORY: Please see above. PAST SURGERY HISTORY: No major surgery recently. ALLERGY: Reviewed. MEDICATIONS: Refer to [facility] FAMILY HISTORY: Non contributory. SOCIAL HISTORY: Lives at home. Denies current smoking, drinking, and illicit drug use. REVIEW OF SYSTEMS: Constitutional: No malnutrition, weight loss, cachexia. Head: No traumatic brain or head injury. Skin: No edema, or rash. Ear: No infection. Eyes: No vision loss or color blindness. Nose: No bleeding or purulent discharges. Hearing: Hearing decrease. Neck: No injury. Cardiac: HTN. Pulmonary: No COPD. GI: No GI ulcer, GI bleeding. Urinary/genital: Chronic renal failure on dialysis. Endocrinologic: hyperparathyroidism. Skeletomuscular: No muscular atrophy, deformity. Neurological: see HP. Psychiatric: Denies drug use/abuse. Otherwise, not [id number] review of systems. PHYSICAL EXAMINATION: General appearance is in subacute distress. HEENT: Normocephalic and nontraumatic. Eyes, nose, ears, and throat are unremarkable. Neck is supple. No lymphadenopathy. No crepitus. Cardiovascular: S1, S2, regular rate and rhythm. Pulmonary: Clear to auscultation bilaterally. Abdomen: Bowel sounds are positive. Extremities: No rash, lesions, or edema. No restriction of range of motion NEUROLOGICAL EXAMINATION: Awake. Oriented to time, place and person. PERRL. EOMI. CN: no focal findings. Muscle tone: within normal. Muscle strength: 5 DTR: 2 Plantar reflex: Flexor response bilaterally Gait: not examined in bed. Sensory exam: no abnormal findings. No cerebellar signs elicited. F-T-N test fine. Current Medications Current Medications Current Medications Sodium Chloride 1,000 ml @ 1,000 mls/hr 1X ONCE IV Last administered on 19:15; Start 12/31/16 at 19:15; Stop 12/31/16 at 20:14; Status DC Amlodipine Besylate (Norvasc) 10 mg BID PO Last administered on 01/02/17 08:41 ; Start 01/01/17 at 10:00 Minoxidil (Loniten) 10 mg DAILY PO Last administered on 01/02/17 08:42; Start 01/01/17 at 10:00 Acetaminophen (Tylenol) 650 mg PRN Q6HRS PRN PO FEVER; Start 01/01/17 at 10:00 Ondansetron HCl (Zofran) 4 mg PRN Q6HRS PRN IV NAUSEA/VOMITING; Start 01/01/17 at 10:00 Morphine Sulfate 2 mg PRN Q2HR PRN IV PAIN; Start 01/01/17 at 10:00 Tramadol HCl (Ultram) 50 mg PRN Q6HRS PRN PO PAIN; Start 01/01/17 at 10:00 Hydralazine HCl (Apresoline) 10 mg PRN Q4HRS PRN IVP ELEVATED BP, SEE COMMENTS ; Start 01/01/17 at 10:00 Docusate Sodium (Colace) 100 mg PRN DAILY PRN PO CONSTIPATION; Start 01/01/17 at 10:00 Heparin Sodium (Porcine) (Heparin Sq) 5,000 unit Q8HRS SQ Last administered on 01/02/17 05:10; Start 01/01/17 at 10:00 Calcium Acetate (Phoslo) 667 mg TIDWMEALS PO ; Start 01/01/17 at 12:00; Stop at 12:04; Status DC Vancomycin HCl (Vanco Per Pharmacy) 1 each PRN DAILY PRN MC SEE COMMENTS Last administered on 01/02/17 09:11; Start 01/01/17 at 11:45 Piperacillin Sod/ Tazobactam Sod 2.25 gm/Sodium Chloride 50 ml @ 100 mls/hr Q8HRS IV Last administered on 01/02/17 05:09; Start 01/01/17 at 13:00 Vancomycin HCl 2 gm/Sodium Chloride 500 ml @ 250 mls/hr 1X ONCE IV Last administered on 01/01/17 13:59; Start 01/01/17 at 13:00; Stop 01/01/17 at 14:59 ; Status DC Calcium Acetate (Phoslo) 667 mg BIDWMEALS PO Last administered on 01/02/17 08: 41; Start 01/01/17 at 17:00 Darbepoetin Kush (Aranesp) 60 mcg Angel SQ Last administered on 01/01/17 21:02; Start 01/01/17 at 21:00 Atorvastatin Calcium (Lipitor) 10 mg QHS PO Last administered on 01/01/17 21: 00; Start 01/01/17 at 21:00 Vancomycin HCl 1 each 1X ONCE MC ; Start 01/03/17 at 05:00; Stop 01/03/17 at 05 :01 Magnesium Sulfate/ Dextrose 50 ml @ 25 mls/hr PRN DAILY PRN IV for Mag < 1.7 on am labs; Start 01/02/17 at 10:45 Iohexol (Omnipaque 350 Mg/ml) 75 ml 1X ONCE IV ; Start 01/02/17 at 12:00; Stop 01/02/17 at 12:01; Status DC Info (Do NOT chart on this entry -- for MONITORING) 1 each PRN DAILY PRN MC SEE COMMENTS; Start 01/02/17 at 11:45; Stop 01/04/17 at 11:44 Iohexol (Omnipaque 350 Mg/ml) 75 ml 1X ONCE IV ; Start 01/02/17 at 12:15; Stop 01/02/17 at 12:16; Status DC Active Scripts Active Reported Lovastatin 40 Mg Tablet 40 Mg PO HS Calphron (Calcium Acetate) 667 Mg Tablet 667 Mg PO TIDWMEALS Minoxidil 2.5 Mg Tablet 10 Mg PO DAILY Norvasc (Amlodipine Besylate) 10 Mg Tablet 10 Mg PO BID Allergies Allergies: Coded Allergies: No Known Drug Allergies (Unverified , 12/31/16) Vitals VITALS Vital Signs Date Time Temp Pulse Resp B/P (MAP) Pulse Ox O2 Delivery O2 Flow Rate FiO2 01/02/17 11:00 97.6 65 20 154/70 (98) 95 Room Air 97.6 Labs Labs Laboratory Tests Test 12/31/16 19:19 12/31/16 19:22 01/01/17 07:14 01/02/17 03:35 White Blood Count 6.2 x10^3/uL (4.0-11.0) 4.1 x10^3/uL (4.0-11.0) Red Blood Count 3.55 x10^6/uL (4.30-5.70) 3.60 x10^6/uL (4.30-5.70) Hemoglobin 10.7 g/dL (13.0-17.5) 10.8 g/dL (13.0-17.5) Hematocrit 31.9 % (39.0-53.0) 33.3 % (39.0-53.0) Mean Corpuscular Volume 90 fL (79-100) 93 fL (79-100) Mean Corpuscular Hemoglobin 30 pg (25-35) 30 pg (25-35) Mean Corpuscular Hemoglobin Concent 34 g/dL (31-37) 32 g/dL (31-37) Red Cell Distribution Width 16.1 % (11.5-14.5) 16.2 % (11.5-14.5) Platelet Count 106 x10^3/uL (140-400) 113 x10^3/uL (140-400) Neutrophils (%) (Auto) 78 % (31-73) 66 % (31-73) Lymphocytes (%) (Auto) 6 % (24-48) 14 % (24-48) Monocytes (%) (Auto) 16 % (0-9) 18 % (0-9) Eosinophils (%) (Auto) 0 % (0-3) 2 % (0-3) Basophils (%) (Auto) 0 % (0-3) 1 % (0-3) Neutrophils # (Auto) 4.8 x10^3uL (1.8-7.7) 2.7 x10^3uL (1.8-7.7) Lymphocytes # (Auto) 0.4 x10^3/uL (1.0-4.8) 0.6 x10^3/uL (1.0-4.8) Monocytes # (Auto) 1.0 x10^3/uL (0.0-1.1) 0.7 x10^3/uL (0.0-1.1) Eosinophils # (Auto) 0.0 x10^3/uL (0.0-0.7) 0.1 x10^3/uL (0.0-0.7) Basophils # (Auto) 0.0 x10^3/uL (0.0-0.2) 0.0 x10^3/uL (0.0-0.2) Sodium Level 137 mmol/L (136-145) 140 mmol/L (136-145) 140 mmol/L (136-145) Potassium Level 3.7 mmol/L (3.5-5.1) 4.1 mmol/L (3.5-5.1) 4.2 mmol/L (3.5-5.1) Chloride Level 103 mmol/L (98-107) 106 mmol/L (98-107) 106 mmol/L (98-107) Carbon Dioxide Level 21 mmol/L (21-32) 20 mmol/L (21-32) 22 mmol/L (21-32) Anion Gap 13 (6-14) 16 mmol/L (6-14) 14 (6-14) 12 (6-14) Blood Urea Nitrogen 20 mg/dL (8-26) 26 mg/dL (8-26) 37 mg/dL (8-26) Creatinine 6.3 mg/dL (0.7-1.3) 7.3 mg/dL (0.7-1.3) 8.9 mg/dL (0.7-1.3) Estimated GFR (Cockcroft-Gault) 8.8 8.9 7.1 BUN/Creatinine Ratio 3 (6-20) Glucose Level 113 mg/dL (70-99) 106 mg/dL (70-99) 93 mg/dL (70-99) 90 mg/dL (70-99) Calcium Level 8.9 mg/dL (8.5-10.1) 8.1 mg/dL (8.5-10.1) 7.7 mg/dL (8.5-10.1) Total Bilirubin 0.7 mg/dL (0.2-1.0) Aspartate Amino Transf (AST/SGOT) 48 U/L (15-37) Alanine Aminotransferase (ALT/SGPT) 35 U/L (16-63) Alkaline Phosphatase 191 U/L (46-116) Creatine Kinase 147 U/L (39-308) Total Protein 8.4 g/dL (6.4-8.2) Albumin 3.0 g/dL (3.4-5.0) Albumin/Globulin Ratio 0.6 (1.0-1.7) Bedside Hemoglobin 11.6 g/dL (14-18) Bedside Hematocrit 34 % (37-52) Bedside Sodium 139 mmol/L (135-145) Bedside Potassium 3.7 mmol/L (3.5-5.0) Bedside Chloride 107 mmol/L (98-110) Bedside Total CO2 21 mmol/L (23-32) Bedside Blood Urea Nitrogen 21 mg/dL (8-26) Bedside Creatinine 6.5 mg/dL (0.5-1.4) Bedside Ionized Calcium ([place]) 1.10 mmol/L (1.13-1.32) Bedside Troponin I 0.03 ng/ml (<0.08) Troponin I Quantitative 0.037 ng/mL (0.000-0.055) Triglycerides Level 90 mg/dL (0-150) Cholesterol Level 88 mg/dL (0-200) LDL Cholesterol, Calculated 45 mg/dL (0-100) VLDL Cholesterol, Calculated 18 mg/dL (0-40) Non-HDL Cholesterol Calculated 63 mg/dL (0-129) HDL Cholesterol 25 mg/dL (40-60) Cholesterol/HDL Ratio 3.5 Laboratory Tests Test 01/02/17 03:35 White Blood Count 4.1 x10^3/uL (4.0-11.0) Red Blood Count 3.60 x10^6/uL (4.30-5.70) Hemoglobin 10.8 g/dL (13.0-17.5) Hematocrit 33.3 % (39.0-53.0) Mean Corpuscular Volume 93 fL (79-100) Mean Corpuscular Hemoglobin 30 pg (25-35) Mean Corpuscular Hemoglobin Concent 32 g/dL (31-37) Red Cell Distribution Width 16.2 % (11.5-14.5) Platelet Count 113 x10^3/uL (140-400) Neutrophils (%) (Auto) 66 % (31-73) Lymphocytes (%) (Auto) 14 % (24-48) Monocytes (%) (Auto) 18 % (0-9) Eosinophils (%) (Auto) 2 % (0-3) Basophils (%) (Auto) 1 % (0-3) Neutrophils # (Auto) 2.7 x10^3uL (1.8-7.7) Lymphocytes # (Auto) 0.6 x10^3/uL (1.0-4.8) Monocytes # (Auto) 0.7 x10^3/uL (0.0-1.1) Eosinophils # (Auto) 0.1 x10^3/uL (0.0-0.7) Basophils # (Auto) 0.0 x10^3/uL (0.0-0.2) Sodium Level 140 mmol/L (136-145) Potassium Level 4.2 mmol/L (3.5-5.1) Chloride Level 106 mmol/L (98-107) Carbon Dioxide Level 22 mmol/L (21-32) Anion Gap 12 (6-14) Blood Urea Nitrogen 37 mg/dL (8-26) Creatinine 8.9 mg/dL (0.7-1.3) Estimated GFR (Cockcroft-Gault) 7.1 Glucose Level 90 mg/dL (70-99) Calcium Level 7.7 mg/dL (8.5-10.1) Troponin I Quantitative 0.037 ng/mL (0.000-0.055) Triglycerides Level 90 mg/dL (0-150) Cholesterol Level 88 mg/dL (0-200) LDL Cholesterol, Calculated 45 mg/dL (0-100) VLDL Cholesterol, Calculated 18 mg/dL (0-40) Non-HDL Cholesterol Calculated 63 mg/dL (0-129) HDL Cholesterol 25 mg/dL (40-60) Cholesterol/HDL Ratio 3.5 RAMONA ALEXIS MD Jan 02, 2017 14:21
--- NOTE | 2017-01-02 14:45 | CARD ---
APPROVED REPORT EXAM: Two-dimensional and M-mode echocardiogram with Doppler and color Doppler. Other Information Quality : Average Rhythm : NSR INDICATION Syncope 2D DIMENSIONS RVDd3.8 (2.9-3.5cm)Left Atrium(2D)4.5 (1.6-4.0cm) IVSd1.7 (0.7-1.1cm)Aortic Root(2D)3.2 (2.0-3.7cm) LVDd5.2 (3.9-5.9cm)LVOT Diameter2.3 (1.8-2.4cm) PWd1.7 (0.7-1.1cm)LVDs3.8 (2.5-4.0cm) FS (%) 25.5 %SV63.5 ml LVEF(%)50.0 (>50%) Aortic Valve AoV Peak González.222.4cm/sAoV VTI51.6cm AO Peak GR.19.8mmHgLVOT Peak González.112.7cm/s LVOT VTI 25.72cmAO Mean GR.10mmHg MESHA (VMAX)2.35pg9GYH (VTI)2.07cm2 AI P 1/2 Tdyg054xq Mitral Valve MV E Ublmlmec649.1cm/sMV DECEL LVBL635wh MV A Efszgnmu704.0cm/sMV E Mean Gr.4mmHg MV XQM56qbZ/A Ratio1.3 MV A Ynivtxmo081tgADP (PHT)3.52cm2 TDI E/Lateral E'22.3E/Medial E'22.5 Pulmonary Valve PV Peak Qydmdezd904.0cm/sPV Peak Grad.5mmHg RVOT VTI21.8cm Tricuspid Valve TR P. Gvlufpsk379jx/sRAP NWVWNCHI51vqMf TR Peak Gr.77paBmYIRL17cnEv Pulmonary Vein S1 Qzhkbsxz52.7cm/sD2 Ecmuaacr65.4cm/s LEFT VENTRICLE The left ventricle is normal size. There is moderate concentric left ventricular hypertrophy. Left ve ntricle systolic function is normal. The Ejection Fraction is 55%. There is normal LV segmental wall motion. The left ventricular diastolic function and filling is normal for age. There is no ventricula r septal defect visualized. RIGHT VENTRICLE The right ventricle is normal size. The right ventricular systolic function is normal. ATRIA The left atrium is mildly dilated. The right atrium is mildly dilated. The interatrial septum is inta ct with no evidence for an atrial septal defect or patent foramen ovale as noted on 2-D or Doppler im aging. AORTIC VALVE The aortic valve is mildly sclerotic. Doppler and Color Flow revealed mild to moderate aortic regurgi tation. There is no significant aortic valvular stenosis. MITRAL VALVE Mitral annular calcification is mild. There is no mitral valve stenosis. Doppler and Color Flow revea led mild mitral regurgitation. TRICUSPID VALVE The tricuspid valve is normal in structure and function. Doppler and Color Flow revealed moderate to severe tricuspid regurgitation. There is severe pulmonary hypertension. The PA pressure was estimated at 89 mmHg. There is no tricuspid valve stenosis. PULMONIC VALVE The pulmonary valve is normal in structure and function. Doppler and Color Flow revealed mild pulmoni c valvular regurgitation. There is no pulmonic valvular stenosis. GREAT VESSELS The aortic root is normal in size. Possible fluid visualized posterior to the aortic root and ascendi ng aorta. The ascending aorta is normal in size. The IVC is dilated and collapses <50% with inspirati on. PERICARDIAL EFFUSION There is a small circumferential pericardial effusion without any evidence for hemodynamic compromise . Critical Notification Date: 01/02/2017 Time: 10:51 Physician Name:Dr. Maria Critical Value: Yes <Conclusion> Left ventricle systolic function is normal. The Ejection Fraction is 55%. There is normal LV segmental wall motion. The left atrium is mildly dilated. Mild to moderate aortic regurgitation. Mild mitral regurgitation. Moderate to severe tricuspid regurgitation. There is severe pulmonary hypertension. The PA pressure was estimated at 89 mmHg. There is a small circumferential pericardial effusion without any evidence for hemodynamic compromise .
[2017-01-02 15:00] VITALS: BP 132/63
[2017-01-02] MEDS: ASPIRIN ENTERIC COATED 81 MG TABLET.DR. PO SCH (16:02)
--- NOTE | 2017-01-02 17:08 | RAD ---
Indication abnormal echo. Assess for potential dissection. Pre and postcontrast imaging of the thoracic aorta was performed. Postcontrast images were obtained following the administration of 75 cc of Omnipaque 350. Volume rendered images were generated and reviewed. On the initial noncontrast images some coronary artery calcification is noted. There is no evidence of intramural hematoma seen associated with the thoracic aorta. On the contrast images the thoracic aorta appears normal. There is no evidence of dissection. No aneurysm or acute finding is seen associated with the thoracic aorta. Some minimal calcification of the arch is noted. There is substantial mediastinal adenopathy. The etiology is unclear. A neoplastic process such as lymphoma should be considered. There is no significant hilar adenopathy seen on either side. There is no significant axillary adenopathy. There is a very small left pleural effusion and a trace right. There is minimal volume loss at the left lung base likely reflecting atelectasis. There is mild splenomegaly. Both kidneys are quite small. An acute finding in the upper abdomen is not seen. There are some degenerative changes in the thoracic spine. There is reticulonodular prominence in a small portion of the right middle lobe and a larger portion of the right lower lobe. The etiology is unclear but an inflammatory process is not excluded. Clinical correlation advised. Volume loss in the left lower lobe probably reflects passive atelectasis associated with the pleural fluid. Underlying pneumonia is not entirely excluded. There is moderate generalized cardiomegaly. Small nodular opacities are seen throughout both lungs. Follow-up imaging should be considered. IMPRESSION: Normal aorta. No evidence of dissection. Extensive mediastinal adenopathy. The etiology is unclear. Malignancy is not excluded. There is mild enlargement of the spleen. Small left pleural effusion and trace right. Volume loss at the left lung base probably reflects passive atelectasis associated with the pleural fluid. Reticulonodular prominence in the right middle and lower lobes. The etiology is unclear. Inflammation is not excluded. Follow-up imaging should be considered. Small nodular opacities in both lungs. Again follow-up imaging should be considered PQRS Compliance Statement: One or more of the following individualized dose reduction techniques were utilized for this examination: 1. Automated exposure control 2. Adjustment of the mA and/or kV according to patient size 3. Use of iterative reconstruction technique
[2017-01-02 19:05] VITALS: BP 125/63
[2017-01-02] MEDS: ATORVASTATIN CALCIUM 10 MG TABLET. PO SCH (21:56)
[2017-01-02 23:00] VITALS: BP 124/62
[2017-01-03 03:40] VITALS: BP 122/62
[2017-01-03] MEDS ORDERED: VANCOMYCIN RANDOM LEVEL. MC ONE (05:00)
[2017-01-03 05:36] LABS: ALBUMIN 2.4 g/dL (3.4-5.0); CALCIUM 7.8 mg/dL (8.5-10.1); CREATININE 10.7 mg/dL (0.7-1.3); GFR 5.8; POTASSIUM 4.2 mmol/L (3.5-5.1)
[2017-01-03] MEDS: PIPERACILLIN/TAZOBACTAM 2.25 GM in IV NORMAL SALINE 50ML 50 ML IV SCH (06:03)
[2017-01-03] MEDS: HEPARIN PF for SUB-Q USE 5,000 UNIT/0.5 ML VIAL. SQ SCH ×2 (06:06→14:52)
[2017-01-03] MEDS: VANCOMYCIN PER PHARMACY MC PRN (06:07)
[2017-01-03] MEDS: CALCIUM ACETATE 667 MG CAPSULE PO SCH ×3 (08:00→17:35)
[2017-01-03] MEDS ORDERED: DIALYSIS PATIENT. MC PRN ×2 (08:30)
--- NOTE | 2017-01-03 08:55 | PDOC ---
Dialysis Progress Note Dialysis Note Dialysis Note Seen on Hemodialysis, tolerating treatment Well Vitals on Hemodialysis: 140/65 69 afeb General Appearance: Awake: Alert Oriented x 3 Neck: No JVD or JVP Chest: CTA Richie Heart: S1 S2 Abdomen - Soft NTND Extremities - No EdemaESRD ARF: Dialysis as below F 180 NR 4.0 Hrs 3 K 2.5 Ca 140 Na 40 HC03 Qb 350 + Qd 500+ Heparin 3K Units Uf 3.3 Kgs or to dry weight as tolerated May give 25-50 gms of 25% Albumin if needed to maintain Hemodynamic stability Treatment plan reviewed and discussed with canvas worker Vitals Vital Signs Vital Signs Date Time Temp Pulse Resp B/P (MAP) Pulse Ox O2 Delivery O2 Flow Rate FiO2 01/03/17 07:48 Room Air 01/03/17 03:40 98.5 71 18 122/62 (82) 94 98.5 Labs Last Labs Laboratory Tests Test 01/02/17 03:35 01/02/17 13:55 01/03/17 04:00 White Blood Count 4.1 x10^3/uL (4.0-11.0) Red Blood Count 3.60 x10^6/uL (4.30-5.70) Hemoglobin 10.8 g/dL (13.0-17.5) 10.7 g/dL (13.0-17.5) Hematocrit 33.3 % (39.0-53.0) Mean Corpuscular Volume 93 fL (79-100) Mean Corpuscular Hemoglobin 30 pg (25-35) Mean Corpuscular Hemoglobin Concent 32 g/dL (31-37) Red Cell Distribution Width 16.2 % (11.5-14.5) Platelet Count 113 x10^3/uL (140-400) Neutrophils (%) (Auto) 66 % (31-73) Lymphocytes (%) (Auto) 14 % (24-48) Monocytes (%) (Auto) 18 % (0-9) Eosinophils (%) (Auto) 2 % (0-3) Basophils (%) (Auto) 1 % (0-3) Neutrophils # (Auto) 2.7 x10^3uL (1.8-7.7) Lymphocytes # (Auto) 0.6 x10^3/uL (1.0-4.8) Monocytes # (Auto) 0.7 x10^3/uL (0.0-1.1) Eosinophils # (Auto) 0.1 x10^3/uL (0.0-0.7) Basophils # (Auto) 0.0 x10^3/uL (0.0-0.2) Sodium Level 140 mmol/L (136-145) 140 mmol/L (136-145) Potassium Level 4.2 mmol/L (3.5-5.1) 4.2 mmol/L (3.5-5.1) Chloride Level 106 mmol/L (98-107) 107 mmol/L (98-107) Carbon Dioxide Level 22 mmol/L (21-32) 21 mmol/L (21-32) Anion Gap 12 (6-14) 12 (6-14) Blood Urea Nitrogen 37 mg/dL (8-26) 46 mg/dL (8-26) Creatinine 8.9 mg/dL (0.7-1.3) 10.7 mg/dL (0.7-1.3) Estimated GFR (Cockcroft-Gault) 7.1 5.8 Glucose Level 90 mg/dL (70-99) 87 mg/dL (70-99) Calcium Level 7.7 mg/dL (8.5-10.1) 7.8 mg/dL (8.5-10.1) Troponin I Quantitative 0.037 ng/mL (0.000-0.055) < 0.017 ng/mL (0.000-0.055) Triglycerides Level 90 mg/dL (0-150) Cholesterol Level 88 mg/dL (0-200) LDL Cholesterol, Calculated 45 mg/dL (0-100) VLDL Cholesterol, Calculated 18 mg/dL (0-40) Non-HDL Cholesterol Calculated 63 mg/dL (0-129) HDL Cholesterol 25 mg/dL (40-60) Cholesterol/HDL Ratio 3.5 Phosphorus Level 4.0 mg/dL (2.6-4.7) Magnesium Level 2.0 mg/dL (1.8-2.4) Albumin 2.4 g/dL (3.4-5.0) Random Vancomycin Level 21.5 mcg/mL Laboratory Tests Test 01/02/17 13:55 01/03/17 04:00 Troponin I Quantitative < 0.017 ng/mL (0.000-0.055) Hemoglobin 10.7 g/dL (13.0-17.5) Sodium Level 140 mmol/L (136-145) Potassium Level 4.2 mmol/L (3.5-5.1) Chloride Level 107 mmol/L (98-107) Carbon Dioxide Level 21 mmol/L (21-32) Anion Gap 12 (6-14) Blood Urea Nitrogen 46 mg/dL (8-26) Creatinine 10.7 mg/dL (0.7-1.3) Estimated GFR (Cockcroft-Gault) 5.8 Glucose Level 87 mg/dL (70-99) Calcium Level 7.8 mg/dL (8.5-10.1) Phosphorus Level 4.0 mg/dL (2.6-4.7) Magnesium Level 2.0 mg/dL (1.8-2.4) Albumin 2.4 g/dL (3.4-5.0) Random Vancomycin Level 21.5 mcg/mL Assessment Assessment Problems Medical Problems: (1) Cardiac arrhythmia Status: Acute (2) Paired ventricular premature complexes Status: Acute (3) Syncope Status: Acute Problems: Plan Plan of Care Problems Medical Problems: (1) Cardiac arrhythmia Status: Acute (2) Paired ventricular premature complexes Status: Acute (3) Syncope Status: Acute FRANCO SQUIRES MD Jan 03, 2017 08:55
[2017-01-03] MEDS: MINOXIDIL 2.5 MG TABLET PO SCH (09:00)
[2017-01-03] MEDS: amLODIPine BESYLATE 10 MG TABLET PO SCH (09:00)
--- NOTE | 2017-01-03 11:03 | PDOC ---
Infectious Disease Note Subjective Subjective Feeling whole lot better Appetite good Denies F/C/S or aches ROS ROS GEN: Denies fevers, chills, sweats HEENT: Denies blurred vision, sore throat CV: Denies chest pain RESP: Denies shortness of air, cough GI: Denies n/v/d NEURO: Denies confusion, dizziness MSK: Denies weakness, joint pain/swelling Vital Sign Vital Signs Vital Signs Date Time Temp Pulse Resp B/P (MAP) Pulse Ox O2 Delivery O2 Flow Rate FiO2 01/03/17 07:48 Room Air 01/03/17 03:40 98.5 71 18 122/62 (82) 94 98.5 Physical Exam PHYSICAL EXAM GENERAL: NAD, Alert HEENT: PERRL, OC/OP NECK: Supple, no JVD, no LN LUNGS: Clear HEART: S1S2, no gallop, no murmur ABD: Soft, NT, no organomegaly, no rebound EXT: No edema, no cyanosis HOME SUPERVISOR: Alert, oriented x 3, no focal neurologic deficit SKIN: No rash IV: ok Labs Lab Laboratory Tests Test 01/02/17 13:55 01/03/17 04:00 Troponin I Quantitative < 0.017 ng/mL (0.000-0.055) Hemoglobin 10.7 g/dL (13.0-17.5) Sodium Level 140 mmol/L (136-145) Potassium Level 4.2 mmol/L (3.5-5.1) Chloride Level 107 mmol/L (98-107) Carbon Dioxide Level 21 mmol/L (21-32) Anion Gap 12 (6-14) Blood Urea Nitrogen 46 mg/dL (8-26) Creatinine 10.7 mg/dL (0.7-1.3) Estimated GFR (Cockcroft-Gault) 5.8 Glucose Level 87 mg/dL (70-99) Calcium Level 7.8 mg/dL (8.5-10.1) Phosphorus Level 4.0 mg/dL (2.6-4.7) Magnesium Level 2.0 mg/dL (1.8-2.4) Albumin 2.4 g/dL (3.4-5.0) Random Vancomycin Level 21.5 mcg/mL Objective Assessment Sepsis + cults from 12/27 at HD, proteus and coag neg staph (MSSE) CKD on HD ? Syncope Acute encephalopathy - better CAD with h/o cath Plan Plan of Care d/c Vanc and Zosyn,, po levaquin, for 7 days bc neg here d/c home ok GEOFF SQUIRES MD Jan 03, 2017 11:02
--- NOTE | 2017-01-03 11:58 | PDOC ---
PROGRESS NOTES Assessment Assessment Loss of consciousness. Syncopal spell. Seizure evaluation. Confusion. Renal failure on dialysis. CAD HTN Hyperparathyroidism. RECOMMENDATIONS/PLAN: Treat medical diseases. Renal dialysis per schedule. FU with PC. FU with Neurology in 1 month. EEG on 01/02/17: No epileptiform discharges and electrographic seizure. The posterior dominant rhythm is 7-8 Hz/s that mildly slow for age. HISTORY OF THE PRESENT ILLNESS: 71-y-old AA male patient with above medical diseases had an episode after dialysis as loss of consciousness while he was in his car but car was not on running. The temporature inside the car was high and he had perspiration obviously. No shaking, jaerking or celia movements noted. No focalized sensory or motor deficits reported. He stated on 01/03 that he has been doing better. PAST MEDICAL HISTORY: Please see above. PAST SURGERY HISTORY: No major surgery recently. ALLERGY: Reviewed. MEDICATIONS: Refer to [facility] FAMILY HISTORY: Non contributory. SOCIAL HISTORY: Lives at home. Denies current smoking, drinking, and illicit drug use. REVIEW OF SYSTEMS: Constitutional: No malnutrition, weight loss, cachexia. Head: No traumatic brain or head injury. Skin: No edema, or rash. Ear: No infection. Eyes: No vision loss or color blindness. Nose: No bleeding or purulent discharges. Hearing: Hearing decrease. Neck: No injury. Cardiac: HTN. Pulmonary: No COPD. GI: No GI ulcer, GI bleeding. Urinary/genital: Chronic renal failure on dialysis. Endocrinologic: hyperparathyroidism. Skeletomuscular: No muscular atrophy, deformity. Neurological: see HP. Psychiatric: Denies drug use/abuse. Otherwise, not [id number] review of systems. PHYSICAL EXAMINATION: General appearance is in subacute distress. HEENT: Normocephalic and nontraumatic. Eyes, nose, ears, and throat are unremarkable. Neck is supple. No lymphadenopathy. No crepitus. Cardiovascular: S1, S2, regular rate and rhythm. Pulmonary: Clear to auscultation bilaterally. Abdomen: Bowel sounds are positive. Extremities: No rash, lesions, or edema. No restriction of range of motion NEUROLOGICAL EXAMINATION: Awake. Oriented to time, place and person. PERRL. EOMI. CN: no focal findings. Muscle tone: within normal. Muscle strength: 5 DTR: 2 Plantar reflex: Flexor response bilaterally Gait: not examined in bed. Sensory exam: no abnormal findings. No cerebellar signs elicited. F-T-N test fine. Objective Objective Vital Signs Date Time Temp Pulse Resp B/P (MAP) Pulse Ox O2 Delivery O2 Flow Rate FiO2 01/03/17 07:48 Room Air 01/03/17 03:40 98.5 71 18 122/62 (82) 94 98.5 Intake and Output 01/03/17 07:00 Intake Total 1620 ml Output Total 0 ml Balance 1620 ml Intake Oral 1520 ml IV Total 100 ml Output Urine Total 0 ml Vitals Signs Vitals VS - Last 72 Hours, by Label Date Time Temp Pulse Resp B/P (MAP) Pulse Ox O2 Delivery O2 Flow Rate FiO2 01/03/17 07:48 Room Air 01/03/17 07:00 Room Air 01/03/17 03:40 98.5 71 18 122/62 (82) 94 Room Air 98.5 01/02/17 23:00 98.2 69 18 124/62 (82) 94 Room Air 98.2 01/02/17 21:56 67 125/63 01/02/17 20:00 Room Air 01/02/17 19:05 98.4 67 18 125/63 (83) 95 Room Air 98.4 01/02/17 15:00 98.1 67 22 132/63 (86) 94 Room Air 98.1 01/02/17 11:00 97.6 65 20 154/70 (98) 95 Room Air 97.6 01/02/17 08:42 67 132/72 01/02/17 08:41 67 132/72 01/02/17 08:00 Room Air 01/02/17 07:00 98.0 67 20 132/72 (92) 90 Room Air 98.0 Laboratory Laboratory Laboratory Tests Test 01/02/17 13:55 01/03/17 04:00 Troponin I Quantitative < 0.017 ng/mL (0.000-0.055) Hemoglobin 10.7 g/dL (13.0-17.5) Sodium Level 140 mmol/L (136-145) Potassium Level 4.2 mmol/L (3.5-5.1) Chloride Level 107 mmol/L (98-107) Carbon Dioxide Level 21 mmol/L (21-32) Anion Gap 12 (6-14) Blood Urea Nitrogen 46 mg/dL (8-26) Creatinine 10.7 mg/dL (0.7-1.3) Estimated GFR (Cockcroft-Gault) 5.8 Glucose Level 87 mg/dL (70-99) Calcium Level 7.8 mg/dL (8.5-10.1) Phosphorus Level 4.0 mg/dL (2.6-4.7) Magnesium Level 2.0 mg/dL (1.8-2.4) Albumin 2.4 g/dL (3.4-5.0) Random Vancomycin Level 21.5 mcg/mL Microbiology 01/01/17 Blood Culture - Preliminary, Resulted NO GROWTH AFTER 1 DAY Medication Medications Current Medications Aspirin (Ecotrin) 81 mg DAILYWBKFT PO Last administered on 01/02/17 16:02; Start 01/02/17 at 15:30 Heparin Sodium (Porcine) (Heparin Sodium) 10,000 unit STK-MED ONCE .ROUTE ; Start 01/03/17 at 08:21; Stop 01/03/17 at 08:22; Status DC Info (PHARMACY MONITORING -- do not chart) 1 each PRN DAILY PRN MC SEE COMMENTS ; Start 01/03/17 at 08:30 Info (PHARMACY MONITORING -- do not chart) 1 each PRN DAILY PRN MC SEE COMMENTS ; Start 01/03/17 at 08:30; Status UNV Iohexol (Omnipaque 350 Mg/ml) 75 ml 1X ONCE IV ; Start 01/02/17 at 12:00; Stop 01/02/17 at 12:01; Status DC Iohexol (Omnipaque 350 Mg/ml) 75 ml 1X ONCE IV Last administered on 01/02/17 16:37; Start 01/02/17 at 12:15; Stop 01/02/17 at 12:16; Status DC Levofloxacin (Levaquin) 500 mg DAILY06 PO ; Start 01/03/17 at 12:00 Vancomycin HCl 1 each 1X ONCE MC Last administered on 01/03/17 04:54; Start 01/03/17 at 05:00; Stop 01/03/17 at 05:01; Status DC Vancomycin HCl 1 each 1X ONCE MC ; Start 01/04/17 at 09:00; Stop 01/04/17 at 09 :00; Status DC Vancomycin HCl 500 mg/Sodium Chloride 100 ml @ 100 mls/hr QTUTHSA IV ; Start at 16:00; Stop 01/03/17 at 16:00; Status DC Comment Review of Relevant I have reviewed the following items cal (where applicable) has been applied. RAMONA ALEXIS MD Jan 03, 2017 11:58
[2017-01-03] MEDS: ASPIRIN ENTERIC COATED 81 MG TABLET.DR. PO SCH (13:11)
--- NOTE | 2017-01-03 13:36 | PDOC ---
PROGRESS NOTES Chief Complaint Chief Complaint possible syncope AMS, possible metabolic encephalopathy, resolved htn ESRD on HD TTS recent + bacteremia with gram neg R, gram pos C in the renal clinic hyperthermia plan: renal, id, card, neuro consult fu with card for arrythmia cont home meds HD ttsat dc zosyn and vanco as per ID, on levaquin x7d tele monitor, some Q wave drop, fu with card, echo ok except some small pericardial effusion CTA showed mediastinal adenopathy, get pulm consult dvt ppx dc tmr History of Present Illness History of Present Illness feels ok, wants to go home still denies heart problem before admits taking abx when i asked him again, but didnot tell me bacteremia has some pause on Tele Vitals Vitals Vital Signs Date Time Temp Pulse Resp B/P (MAP) Pulse Ox O2 Delivery O2 Flow Rate FiO2 01/03/17 07:48 Room Air 01/03/17 03:40 98.5 71 18 122/62 (82) 94 98.5 Physical Exam General: Alert, Oriented X3, Cooperative, No acute distress Heart: Regular rate, Normal S1, Normal S2, Other (regular rate rhythm with a 2/ 6 systolic murmur.) Lungs: Clear Abdomen: Normal bowel sounds Extremities: No clubbing Skin: No breakdown Labs LABS Laboratory Tests Test 01/02/17 13:55 01/03/17 04:00 Troponin I Quantitative < 0.017 ng/mL (0.000-0.055) Hemoglobin 10.7 g/dL (13.0-17.5) Sodium Level 140 mmol/L (136-145) Potassium Level 4.2 mmol/L (3.5-5.1) Chloride Level 107 mmol/L (98-107) Carbon Dioxide Level 21 mmol/L (21-32) Anion Gap 12 (6-14) Blood Urea Nitrogen 46 mg/dL (8-26) Creatinine 10.7 mg/dL (0.7-1.3) Estimated GFR (Cockcroft-Gault) 5.8 Glucose Level 87 mg/dL (70-99) Calcium Level 7.8 mg/dL (8.5-10.1) Phosphorus Level 4.0 mg/dL (2.6-4.7) Magnesium Level 2.0 mg/dL (1.8-2.4) Albumin 2.4 g/dL (3.4-5.0) Random Vancomycin Level 21.5 mcg/mL Review of Systems Review of Systems no fever, chills, sob or chest pain Assessment and Plan Assessmemt and Plan Problems Medical Problems: (1) Cardiac arrhythmia Status: Acute (2) Paired ventricular premature complexes Status: Acute (3) Syncope Status: Acute Problems: Comment Review of Relevant I have reviewed the following items cal (where applicable) has been applied. Labs Laboratory Tests Test 01/02/17 03:35 01/02/17 13:55 01/03/17 04:00 White Blood Count 4.1 x10^3/uL (4.0-11.0) Red Blood Count 3.60 x10^6/uL (4.30-5.70) Hemoglobin 10.8 g/dL (13.0-17.5) 10.7 g/dL (13.0-17.5) Hematocrit 33.3 % (39.0-53.0) Mean Corpuscular Volume 93 fL (79-100) Mean Corpuscular Hemoglobin 30 pg (25-35) Mean Corpuscular Hemoglobin Concent 32 g/dL (31-37) Red Cell Distribution Width 16.2 % (11.5-14.5) Platelet Count 113 x10^3/uL (140-400) Neutrophils (%) (Auto) 66 % (31-73) Lymphocytes (%) (Auto) 14 % (24-48) Monocytes (%) (Auto) 18 % (0-9) Eosinophils (%) (Auto) 2 % (0-3) Basophils (%) (Auto) 1 % (0-3) Neutrophils # (Auto) 2.7 x10^3uL (1.8-7.7) Lymphocytes # (Auto) 0.6 x10^3/uL (1.0-4.8) Monocytes # (Auto) 0.7 x10^3/uL (0.0-1.1) Eosinophils # (Auto) 0.1 x10^3/uL (0.0-0.7) Basophils # (Auto) 0.0 x10^3/uL (0.0-0.2) Sodium Level 140 mmol/L (136-145) 140 mmol/L (136-145) Potassium Level 4.2 mmol/L (3.5-5.1) 4.2 mmol/L (3.5-5.1) Chloride Level 106 mmol/L (98-107) 107 mmol/L (98-107) Carbon Dioxide Level 22 mmol/L (21-32) 21 mmol/L (21-32) Anion Gap 12 (6-14) 12 (6-14) Blood Urea Nitrogen 37 mg/dL (8-26) 46 mg/dL (8-26) Creatinine 8.9 mg/dL (0.7-1.3) 10.7 mg/dL (0.7-1.3) Estimated GFR (Cockcroft-Gault) 7.1 5.8 Glucose Level 90 mg/dL (70-99) 87 mg/dL (70-99) Calcium Level 7.7 mg/dL (8.5-10.1) 7.8 mg/dL (8.5-10.1) Troponin I Quantitative 0.037 ng/mL (0.000-0.055) < 0.017 ng/mL (0.000-0.055) Triglycerides Level 90 mg/dL (0-150) Cholesterol Level 88 mg/dL (0-200) LDL Cholesterol, Calculated 45 mg/dL (0-100) VLDL Cholesterol, Calculated 18 mg/dL (0-40) Non-HDL Cholesterol Calculated 63 mg/dL (0-129) HDL Cholesterol 25 mg/dL (40-60) Cholesterol/HDL Ratio 3.5 Phosphorus Level 4.0 mg/dL (2.6-4.7) Magnesium Level 2.0 mg/dL (1.8-2.4) Albumin 2.4 g/dL (3.4-5.0) Random Vancomycin Level 21.5 mcg/mL Laboratory Tests Test 01/02/17 13:55 01/03/17 04:00 Troponin I Quantitative < 0.017 ng/mL (0.000-0.055) Hemoglobin 10.7 g/dL (13.0-17.5) Sodium Level 140 mmol/L (136-145) Potassium Level 4.2 mmol/L (3.5-5.1) Chloride Level 107 mmol/L (98-107) Carbon Dioxide Level 21 mmol/L (21-32) Anion Gap 12 (6-14) Blood Urea Nitrogen 46 mg/dL (8-26) Creatinine 10.7 mg/dL (0.7-1.3) Estimated GFR (Cockcroft-Gault) 5.8 Glucose Level 87 mg/dL (70-99) Calcium Level 7.8 mg/dL (8.5-10.1) Phosphorus Level 4.0 mg/dL (2.6-4.7) Magnesium Level 2.0 mg/dL (1.8-2.4) Albumin 2.4 g/dL (3.4-5.0) Random Vancomycin Level 21.5 mcg/mL Microbiology 01/01/17 Blood Culture - Preliminary, Resulted NO GROWTH AFTER 2 DAYS Medications Current Medications Sodium Chloride 1,000 ml @ 1,000 mls/hr 1X ONCE IV Last administered on 19:15; Start 12/31/16 at 19:15; Stop 12/31/16 at 20:14; Status DC Amlodipine Besylate (Norvasc) 10 mg BID PO Last administered on 01/02/17 21:56 ; Start 01/01/17 at 10:00 Minoxidil (Loniten) 10 mg DAILY PO Last administered on 01/02/17 08:42; Start 01/01/17 at 10:00 Acetaminophen (Tylenol) 650 mg PRN Q6HRS PRN PO FEVER; Start 01/01/17 at 10:00 Ondansetron HCl (Zofran) 4 mg PRN Q6HRS PRN IV NAUSEA/VOMITING; Start 01/01/17 at 10:00 Morphine Sulfate 2 mg PRN Q2HR PRN IV PAIN; Start 01/01/17 at 10:00 Tramadol HCl (Ultram) 50 mg PRN Q6HRS PRN PO PAIN; Start 01/01/17 at 10:00 Hydralazine HCl (Apresoline) 10 mg PRN Q4HRS PRN IVP ELEVATED BP, SEE COMMENTS ; Start 01/01/17 at 10:00 Docusate Sodium (Colace) 100 mg PRN DAILY PRN PO CONSTIPATION; Start 01/01/17 at 10:00 Heparin Sodium (Porcine) (Heparin Sq) 5,000 unit Q8HRS SQ Last administered on 01/03/17 06:06; Start 01/01/17 at 10:00 Calcium Acetate (Phoslo) 667 mg TIDWMEALS PO ; Start 01/01/17 at 12:00; Stop at 12:04; Status DC Vancomycin HCl (Vanco Per Pharmacy) 1 each PRN DAILY PRN MC SEE COMMENTS Last administered on 01/03/17 06:07; Start 01/01/17 at 11:45; Stop 01/03/17 at 11:01 ; Status DC Piperacillin Sod/ Tazobactam Sod 2.25 gm/Sodium Chloride 50 ml @ 100 mls/hr Q8HRS IV Last administered on 01/03/17 06:03; Start 01/01/17 at 13:00; Stop at 11:01; Status DC Vancomycin HCl 2 gm/Sodium Chloride 500 ml @ 250 mls/hr 1X ONCE IV Last administered on 01/01/17 13:59; Start 01/01/17 at 13:00; Stop 01/01/17 at 14:59 ; Status DC Calcium Acetate (Phoslo) 667 mg BIDWMEALS PO Last administered on 01/03/17 13: 12; Start 01/01/17 at 17:00 Darbepoetin Kush (Aranesp) 60 mcg Angel SQ Last administered on 01/01/17 21:02; Start 01/01/17 at 21:00 Atorvastatin Calcium (Lipitor) 10 mg QHS PO Last administered on 01/02/17 21: 56; Start 01/01/17 at 21:00 Vancomycin HCl 1 each 1X ONCE MC Last administered on 01/03/17 04:54; Start 01/03/17 at 05:00; Stop 01/03/17 at 05:01; Status DC Magnesium Sulfate/ Dextrose 50 ml @ 25 mls/hr PRN DAILY PRN IV for Mag < 1.7 on am labs; Start 01/02/17 at 10:45 Iohexol (Omnipaque 350 Mg/ml) 75 ml 1X ONCE IV ; Start 01/02/17 at 12:00; Stop 01/02/17 at 12:01; Status DC Info (Do NOT chart on this entry -- for MONITORING) 1 each PRN DAILY PRN MC SEE COMMENTS; Start 01/02/17 at 11:45; Stop 01/04/17 at 11:44 Iohexol (Omnipaque 350 Mg/ml) 75 ml 1X ONCE IV Last administered on 01/02/17 16:37; Start 01/02/17 at 12:15; Stop 01/02/17 at 12:16; Status DC Aspirin (Ecotrin) 81 mg DAILYWBKFT PO Last administered on 01/03/17 13:11; Start 01/02/17 at 15:30 Vancomycin HCl 1 each 1X ONCE MC ; Start 01/04/17 at 09:00; Stop 01/04/17 at 09 :00; Status DC Vancomycin HCl 500 mg/Sodium Chloride 100 ml @ 100 mls/hr QTUTHSA IV ; Start at 16:00; Stop 01/03/17 at 16:00; Status DC Heparin Sodium (Porcine) (Heparin Sodium) 10,000 unit STK-MED ONCE .ROUTE ; Start 01/03/17 at 08:21; Stop 01/03/17 at 08:22; Status DC Info (PHARMACY MONITORING -- do not chart) 1 each PRN DAILY PRN MC SEE COMMENTS ; Start 01/03/17 at 08:30; Status UNV Info (PHARMACY MONITORING -- do not chart) 1 each PRN DAILY PRN MC SEE COMMENTS ; Start 01/03/17 at 08:30 Levofloxacin (Levaquin) 500 mg DAILY06 PO Last administered on 01/03/17 13:11 ; Start 01/03/17 at 12:00 Active Scripts Active Reported Lovastatin 40 Mg Tablet 40 Mg PO HS Calphron (Calcium Acetate) 667 Mg Tablet 667 Mg PO TIDWMEALS Minoxidil 2.5 Mg Tablet 10 Mg PO DAILY Norvasc (Amlodipine Besylate) 10 Mg Tablet 10 Mg PO BID Vitals/I & O Vital Sign - Last 24 Hours 01/02/17 01/02/17 01/02/17 01/02/17 15:00 19:05 20:00 21:56 Temp 98.1 98.4 98.1 98.4 Pulse 67 67 67 Resp 22 18 B/P (MAP) 132/63 (86) 125/63 (83) 125/63 Pulse Ox 94 95 O2 Delivery Room Air Room Air Room Air 01/02/17 01/03/17 01/03/17 01/03/17 23:00 03:40 07:00 07:48 Temp 98.2 98.5 98.2 98.5 Pulse 69 71 Resp 18 18 B/P (MAP) 124/62 (82) 122/62 (82) Pulse Ox 94 94 O2 Delivery Room Air Room Air Room Air Room Air Intake and Output 01/02/17 01/02/17 01/03/17 15:00 23:00 07:00 Intake Total 970 ml 650 ml Output Total 0 ml 0 ml Balance 970 ml 650 ml Nutrition Consultation Dietary Evaluation: Comments: Continue nutrition care plan Offer snack on unit if intake is < 50% of meals Expected Outcomes/Goals: meet 75% estimated nutrition needs 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
--- NOTE | 2017-01-03 13:38 | PDOC ---
CARDIO Progress Notes Date and Time Date of Service 01/03/17 Time of Evaluation 1300 Subjective Subjective: No Chest Pain, No shortness of breath, No Palpitations, Other Vitals Vitals Vital Signs Date Time Temp Pulse Resp B/P (MAP) Pulse Ox O2 Delivery O2 Flow Rate FiO2 01/03/17 07:48 Room Air 01/03/17 03:40 98.5 71 18 122/62 (82) 94 98.5 Weight Weight [ ] Input and Output Intake and Output Intake and Output 01/03/17 06:59 Intake Total 1620 ml Output Total 0 ml Balance 1620 ml Intake Oral 1520 ml IV Total 100 ml Output Urine Total 0 ml Laboratory Labs Laboratory Tests Test 01/02/17 13:55 01/03/17 04:00 Troponin I Quantitative < 0.017 ng/mL (0.000-0.055) Hemoglobin 10.7 g/dL (13.0-17.5) Sodium Level 140 mmol/L (136-145) Potassium Level 4.2 mmol/L (3.5-5.1) Chloride Level 107 mmol/L (98-107) Carbon Dioxide Level 21 mmol/L (21-32) Anion Gap 12 (6-14) Blood Urea Nitrogen 46 mg/dL (8-26) Creatinine 10.7 mg/dL (0.7-1.3) Estimated GFR (Cockcroft-Gault) 5.8 Glucose Level 87 mg/dL (70-99) Calcium Level 7.8 mg/dL (8.5-10.1) Phosphorus Level 4.0 mg/dL (2.6-4.7) Magnesium Level 2.0 mg/dL (1.8-2.4) Albumin 2.4 g/dL (3.4-5.0) Random Vancomycin Level 21.5 mcg/mL Microbiology Micro Microbiology 01/01/17 Blood Culture - Preliminary, Resulted NO GROWTH AFTER 2 DAYS Physical Exam HEENT: Neck Supple W Full Motion Chest: Symmetric LUNGS: Clear to Auscultation Heart: S1S2, RRR, murmurs (2/6 systolic murmur ), other (SR with frequent PVC' s - no significant pauses noted on telemetry ) Abdomen: Soft N/T Extremities: No Edema, No Calf Tenderness Neurology: alert, follow commands Assessment Assessment 1. Syncope. Rhythm stable overnight. No significant pauses noted. Echo noted small circumferential pericardial effusion without any evidence for hemodynamic compromise, mild to mod AR, mod-severe TR, and severe pulm HTN- PAP 89 mmHg. LV function preserved. 2. CAD; stable. CP free. Trop neg. X2- AMI ruled out. Continue secondary prevention measures. 3. Ventricular arrhythmias; having frequent PVC's. Mg WNL. 4. ESRD on HD; as per the renal service. 5. ? Sepsis. cultures from 12/27 + from HD. BC negative here so far. Antibiotic therapy as per ID. 6. Hypertension. well-controlled with meds. 7. Hyperparathyroidism. As per the primary service Recommendations Add BB for suppression of ventricular arrhythmias Event monitor upon discharge to r/o significant arrhythmias; will place prior to discharge Continue supportive care Antibiotic therapy as per ID. CARLTON MAGAAN APRN Jan 03, 2017 13:38
[2017-01-03 15:00] VITALS: BP 145/67
[2017-01-03] MEDS ORDERED: METOPROLOL TART IMMED RELEASE 25 MG TABLET. PO SCH (15:15)
[2017-01-03 15:23] VITALS: BP 145/67
[2017-01-03] MEDS ORDERED: VANCOMYCIN 500 MG in IV NORMAL SALINE 100ML 100 ML IV SCH (16:00)
[2017-01-03] MEDS ORDERED: LEVO500T59 PO (16:29)
[2017-01-03] MEDS ORDERED: ASPI-612 PO (16:29)
[2017-01-03] MEDS ORDERED: METO25TA4 PO (16:29)
--- NOTE | 2017-01-03 16:30 | PDOC3 ---
Discharge Summary IPC Date of Admission: Dec 31, 2016 Discharge Date: Jan 03, 2017 Admitting Diagnosis possible syncope AMS, possible metabolic encephalopathy, resolved htn ESRD on HD TTS recent + bacteremia with gram neg R, gram pos C in the renal clinic hyperthermia arrythmia ,with PVCs, amd QRS drops with unclear AVB. PHTN mediastinal adenopathy in CTA Problems: Final Diagnosis CONSULTS card pulm renal id neuro Brief Hospital Course 71yo M, HTN, ESRD ON HD, was sent by EMS for possible syncope. Pt lives alone, said he did his HD yesterday wo any problem, drove back home, feels hot, then parked his car at the drive way, then woke up by EMS. said his neighbor likely called EMS. when EMS came, he was lethargic, hyperthermia, sent to ER. He possible stayed in the car for 5 hours. He became normal in ER. HOwever, pt cannot recall what happened. He denies fever, chills, cough, sob, chest pain, palpitation, dehydration. He was found some PVCs in ER, not overnight. however, when we got dr. Kuo consult for his HD TTS, he was actually found + blood cx with gram neg and pos in the clinic last week and received abx, ID consult then. Pt cont didnot have symptoms during the hospitalization. however, tele showed he has some QRS drops, not sure the type of AVB. he also has trigemini with PVCs. echo showed EF 55%, PHTN. Echo also showed mild pericardial effusion, CTA ruled out dissection, but showed some mediastinal adnopathy, pulm consulted, fu as outpt. bcx from outpt was follwed by ID, was treated with zosyn and vanco, change to levaquin x7ds. dc home with levaquin, metoprolol. Patient History: Patient reports no known family medical history. Problems: Disposition home CONDITION AT DISCHARGE: Improved Diet cardiac Scheduled Amlodipine Besylate (Norvasc), 10 MG PO BID, (Reported) Aspirin (Aspirin Ec), 81 MG PO DAILYWBKFT Calcium Acetate (Calphron), 667 MG PO TIDWMEALS, (Reported) Levofloxacin (Levaquin), 500 MG PO DAILY06 Lovastatin (Lovastatin), 40 MG PO HS, (Reported) Metoprolol Tartrate (Metoprolol Tartrate), 12.5 MG PO BID Minoxidil (Minoxidil), 10 MG PO DAILY, (Reported) Follow Up card and pulm FEMI Glover MD Jan 03, 2017 16:30
--- NOTE | 2017-01-03 17:23 | PDOC2 ---
CONSULT Date of Consult Date of Consult DATE: 01/03/17 TIME: 17:12 Reason for Consult Reason for Consult: ABNORMAL CT OF CHEST Identification/Chief Complaint Chief Complaint SYNCOPE Problems: Source Source: Chart review, Patient History of Present Illness Reason for Visit: PT PRESENTED WITH AMS CHANGE PART FO WORK UP INCLUDED A CT OF CHEST SEE BELOW FOR REPORT PT FOUND TO HAVE ADENOPATHY AND NODULAR INFILTRATES PT REPORT THAT HE HAS BEEN EVALUATED IN PAST FOR SIMILAR PROBLEM AT [facility] LIKE HE HAD A BRONCHOSCOPY TOLD IT WAS INFLAMMATION HE IS CURRENTLY ON KIDNEY TRANSPLANT LIST DENIES F/C/N/C NON PRODUCTIVE COUGH DOES NOT WER 02 AT HOME RECENTLY TREATED FOR SEPSIS BACTEREMIA Past Medical History Cardiovascular: CAD, HTN GI: Constipation Heme/Onc: Anemia NOS Renal/: Chronic renal insuff, Chronic renal failure Endocrine: Hyperparathyroidism Past Surgical History Past Surgical History: Other (fistula placement) Family History Family History: Hypertension, Kidney Disease Social History No ALCOHOL: none Drugs: None Current Problem List Problem List Problems Medical Problems: (1) Cardiac arrhythmia Status: Acute (2) Paired ventricular premature complexes Status: Acute (3) Syncope Status: Acute Current Medications Current Medications Current Medications Sodium Chloride 1,000 ml @ 1,000 mls/hr 1X ONCE IV Last administered on 19:15; Start 12/31/16 at 19:15; Stop 12/31/16 at 20:14; Status DC Amlodipine Besylate (Norvasc) 10 mg BID PO Last administered on 01/02/17 21:56 ; Start 01/01/17 at 10:00 Minoxidil (Loniten) 10 mg DAILY PO Last administered on 01/02/17 08:42; Start 01/01/17 at 10:00 Acetaminophen (Tylenol) 650 mg PRN Q6HRS PRN PO FEVER; Start 01/01/17 at 10:00 Ondansetron HCl (Zofran) 4 mg PRN Q6HRS PRN IV NAUSEA/VOMITING; Start 01/01/17 at 10:00 Morphine Sulfate 2 mg PRN Q2HR PRN IV PAIN; Start 01/01/17 at 10:00 Tramadol HCl (Ultram) 50 mg PRN Q6HRS PRN PO PAIN; Start 01/01/17 at 10:00 Hydralazine HCl (Apresoline) 10 mg PRN Q4HRS PRN IVP ELEVATED BP, SEE COMMENTS ; Start 01/01/17 at 10:00 Docusate Sodium (Colace) 100 mg PRN DAILY PRN PO CONSTIPATION; Start 01/01/17 at 10:00 Heparin Sodium (Porcine) (Heparin Sq) 5,000 unit Q8HRS SQ Last administered on 01/03/17 14:52; Start 01/01/17 at 10:00 Calcium Acetate (Phoslo) 667 mg TIDWMEALS PO ; Start 01/01/17 at 12:00; Stop at 12:04; Status DC Vancomycin HCl (Vanco Per Pharmacy) 1 each PRN DAILY PRN MC SEE COMMENTS Last administered on 01/03/17 06:07; Start 01/01/17 at 11:45; Stop 01/03/17 at 11:01 ; Status DC Piperacillin Sod/ Tazobactam Sod 2.25 gm/Sodium Chloride 50 ml @ 100 mls/hr Q8HRS IV Last administered on 01/03/17 06:03; Start 01/01/17 at 13:00; Stop at 11:01; Status DC Vancomycin HCl 2 gm/Sodium Chloride 500 ml @ 250 mls/hr 1X ONCE IV Last administered on 01/01/17 13:59; Start 01/01/17 at 13:00; Stop 01/01/17 at 14:59 ; Status DC Calcium Acetate (Phoslo) 667 mg BIDWMEALS PO Last administered on 01/03/17 13: 12; Start 01/01/17 at 17:00 Darbepoetin Kush (Aranesp) 60 mcg Angel SQ Last administered on 01/01/17 21:02; Start 01/01/17 at 21:00 Atorvastatin Calcium (Lipitor) 10 mg QHS PO Last administered on 01/02/17 21: 56; Start 01/01/17 at 21:00 Vancomycin HCl 1 each 1X ONCE MC Last administered on 01/03/17 04:54; Start 01/03/17 at 05:00; Stop 01/03/17 at 05:01; Status DC Magnesium Sulfate/ Dextrose 50 ml @ 25 mls/hr PRN DAILY PRN IV for Mag < 1.7 on am labs; Start 01/02/17 at 10:45 Iohexol (Omnipaque 350 Mg/ml) 75 ml 1X ONCE IV ; Start 01/02/17 at 12:00; Stop 01/02/17 at 12:01; Status DC Info (Do NOT chart on this entry -- for MONITORING) 1 each PRN DAILY PRN MC SEE COMMENTS; Start 01/02/17 at 11:45; Stop 01/04/17 at 11:44 Iohexol (Omnipaque 350 Mg/ml) 75 ml 1X ONCE IV Last administered on 01/02/17 16:37; Start 01/02/17 at 12:15; Stop 01/02/17 at 12:16; Status DC Aspirin (Ecotrin) 81 mg DAILYWBKFT PO Last administered on 01/03/17 13:11; Start 01/02/17 at 15:30 Vancomycin HCl 1 each 1X ONCE MC ; Start 01/04/17 at 09:00; Stop 01/04/17 at 09 :00; Status DC Vancomycin HCl 500 mg/Sodium Chloride 100 ml @ 100 mls/hr QTUTHSA IV ; Start at 16:00; Stop 01/03/17 at 16:00; Status DC Heparin Sodium (Porcine) (Heparin Sodium) 10,000 unit STK-MED ONCE .ROUTE ; Start 01/03/17 at 08:21; Stop 01/03/17 at 08:22; Status DC Info (PHARMACY MONITORING -- do not chart) 1 each PRN DAILY PRN MC SEE COMMENTS ; Start 01/03/17 at 08:30; Status UNV Info (PHARMACY MONITORING -- do not chart) 1 each PRN DAILY PRN MC SEE COMMENTS ; Start 01/03/17 at 08:30 Levofloxacin (Levaquin) 500 mg DAILY06 PO Last administered on 01/03/17 13:11 ; Start 01/03/17 at 12:00 Metoprolol Tartrate (Lopressor) 12.5 mg BID PO Last administered on 01/03/17 15:23; Start 01/03/17 at 15:15 Active Scripts Active Levaquin (Levofloxacin) 500 Mg Tablet 500 Mg PO DAILY06 7 Days Metoprolol Tartrate 25 Mg Tablet 12.5 Mg PO BID 30 Days Aspirin Ec (Aspirin) 81 Mg Tablet.dr 81 Mg PO DAILYWBKFT 30 Days Reported Lovastatin 40 Mg Tablet 40 Mg PO HS Calphron (Calcium Acetate) 667 Mg Tablet 667 Mg PO TIDWMEALS Minoxidil 2.5 Mg Tablet 10 Mg PO DAILY Norvasc (Amlodipine Besylate) 10 Mg Tablet 10 Mg PO BID Allergies Allergies: Coded Allergies: No Known Drug Allergies (Unverified , 12/31/16) ROS Review of System INDICATED IN HPI OTHERWISE NEGATIVE Physical Exam General: Alert, Oriented X3, Cooperative HEENT: EOMI Lungs: Clear to auscultation, Normal air movement Heart: Regular rate, Normal S1, Normal S2 Abdomen: Normal bowel sounds, Soft, No tenderness Extremities: No clubbing, No cyanosis, No edema Skin: No rashes, No breakdown Neuro: Normal tone Psych/Mental Status: Mental status NL Vitals VITALS Vital Signs Date Time Temp Pulse Resp B/P (MAP) Pulse Ox O2 Delivery O2 Flow Rate FiO2 01/03/17 15:23 77 145/67 01/03/17 15:00 98.5 20 95 Room Air 98.5 Labs Labs Laboratory Tests Test 01/02/17 03:35 01/02/17 13:55 01/03/17 04:00 White Blood Count 4.1 x10^3/uL (4.0-11.0) Red Blood Count 3.60 x10^6/uL (4.30-5.70) Hemoglobin 10.8 g/dL (13.0-17.5) 10.7 g/dL (13.0-17.5) Hematocrit 33.3 % (39.0-53.0) Mean Corpuscular Volume 93 fL (79-100) Mean Corpuscular Hemoglobin 30 pg (25-35) Mean Corpuscular Hemoglobin Concent 32 g/dL (31-37) Red Cell Distribution Width 16.2 % (11.5-14.5) Platelet Count 113 x10^3/uL (140-400) Neutrophils (%) (Auto) 66 % (31-73) Lymphocytes (%) (Auto) 14 % (24-48) Monocytes (%) (Auto) 18 % (0-9) Eosinophils (%) (Auto) 2 % (0-3) Basophils (%) (Auto) 1 % (0-3) Neutrophils # (Auto) 2.7 x10^3uL (1.8-7.7) Lymphocytes # (Auto) 0.6 x10^3/uL (1.0-4.8) Monocytes # (Auto) 0.7 x10^3/uL (0.0-1.1) Eosinophils # (Auto) 0.1 x10^3/uL (0.0-0.7) Basophils # (Auto) 0.0 x10^3/uL (0.0-0.2) Sodium Level 140 mmol/L (136-145) 140 mmol/L (136-145) Potassium Level 4.2 mmol/L (3.5-5.1) 4.2 mmol/L (3.5-5.1) Chloride Level 106 mmol/L (98-107) 107 mmol/L (98-107) Carbon Dioxide Level 22 mmol/L (21-32) 21 mmol/L (21-32) Anion Gap 12 (6-14) 12 (6-14) Blood Urea Nitrogen 37 mg/dL (8-26) 46 mg/dL (8-26) Creatinine 8.9 mg/dL (0.7-1.3) 10.7 mg/dL (0.7-1.3) Estimated GFR (Cockcroft-Gault) 7.1 5.8 Glucose Level 90 mg/dL (70-99) 87 mg/dL (70-99) Calcium Level 7.7 mg/dL (8.5-10.1) 7.8 mg/dL (8.5-10.1) Troponin I Quantitative 0.037 ng/mL (0.000-0.055) < 0.017 ng/mL (0.000-0.055) Triglycerides Level 90 mg/dL (0-150) Cholesterol Level 88 mg/dL (0-200) LDL Cholesterol, Calculated 45 mg/dL (0-100) VLDL Cholesterol, Calculated 18 mg/dL (0-40) Non-HDL Cholesterol Calculated 63 mg/dL (0-129) HDL Cholesterol 25 mg/dL (40-60) Cholesterol/HDL Ratio 3.5 Phosphorus Level 4.0 mg/dL (2.6-4.7) Magnesium Level 2.0 mg/dL (1.8-2.4) Albumin 2.4 g/dL (3.4-5.0) Random Vancomycin Level 21.5 mcg/mL Laboratory Tests Test 01/03/17 04:00 Hemoglobin 10.7 g/dL (13.0-17.5) Sodium Level 140 mmol/L (136-145) Potassium Level 4.2 mmol/L (3.5-5.1) Chloride Level 107 mmol/L (98-107) Carbon Dioxide Level 21 mmol/L (21-32) Anion Gap 12 (6-14) Blood Urea Nitrogen 46 mg/dL (8-26) Creatinine 10.7 mg/dL (0.7-1.3) Estimated GFR (Cockcroft-Gault) 5.8 Glucose Level 87 mg/dL (70-99) Calcium Level 7.8 mg/dL (8.5-10.1) Phosphorus Level 4.0 mg/dL (2.6-4.7) Magnesium Level 2.0 mg/dL (1.8-2.4) Albumin 2.4 g/dL (3.4-5.0) Random Vancomycin Level 21.5 mcg/mL Images Images IMPRESSION: Normal aorta. No evidence of dissection. Extensive mediastinal adenopathy. The etiology is unclear. Malignancy is not excluded. There is mild enlargement of the spleen. Small left pleural effusion and trace right. Volume loss at the left lung base probably reflects passive atelectasis associated with the pleural fluid. Reticulonodular prominence in the right middle and lower lobes. The etiology is unclear. Inflammation is not excluded. Follow-up imaging should be considered. Small nodular opacities in both lungs. Again follow-up imaging should be considered Assessment/Plan Assessment/Plan ABNORMAL CT OF CHEST DESCRIBED ABOVE/ADENOPATHY AND SOME NODULAR INFILTRATES ESRD BACTEREMIA PLAN: PT GIVEN A COPY OF CT REPORT HE STATED HE WILL FOLLOW UP AT WITH HIS DOCTORS I GAVE HIM MY BUS CARD HE IS TO CALL ME IF HE WISHES TO FOLLOW UP WITH ME I RECOMMEND A FOLLOW UP CT OF CHEST IN 2-3 MONTHS HE MAY REQUIRE A BIOPSY OF ONE THE NODES, INFORMED PT THAT BRONCHOSCOPY WITH OUT BIOPSY IS NOT A COMPLETE WORK UP, EVEN THOUGH THE DOCTORS TOLD HIM THAT HE HAS INFLAMMATION. MICAELA DENISE MD Jan 03, 2017 17:23
[2017-01-04] MEDS ORDERED: VANCOMYCIN RANDOM LEVEL. MC ONE (09:00)
== END 2017-01-03 19:10 | disposition home or self-care (01) ==
LOC: ER 19:11 → 2 NORTH 21:10 → INTOOBSV 21:10
PROVIDERS: ADMIT Internal Medicine; ATTEND Internal Medicine
DX: G93.41 Metabolic encephalopathy (principal); I12.0 Hypertensive chronic kidney disease with stage 5 chronic kidney disease or end stage renal disease; N18.6 End stage renal disease; I49.9 Cardiac arrhythmia, unspecified; I49.3 Ventricular premature depolarization; I25.10 Atherosclerotic heart disease of native coronary artery without angina pectoris; E21.3 Hyperparathyroidism, unspecified; I27.2 Other secondary pulmonary hypertension; R41.0 Disorientation, unspecified; R55 Syncope and collapse; D64.9 Anemia, unspecified; I31.3 Pericardial effusion (noninflammatory); R56.9 Unspecified convulsions; R59.0 Localized enlarged lymph nodes; Z99.2 Dependence on renal dialysis; Z84.1 Family history of disorders of kidney and ureter; Z82.49 Family history of ischemic heart disease and other diseases of the circulatory system
CPT/HCPCS: 36415; 71275; 80047; 80048; 80053; 80061; 80069; 80202; 82550; 83735; 84484; 85018; 85027; 87040; 93005; 93306; 95816; 96361; 96365; 96366; 96367; 96372; 96375; 96376; 99285; A6539; G0378; J0881; J2543; J3370; J7030; J7040; Q9967; 96360; G0379

== ENCOUNTER 2018-11-01 14:55 | Emergency (ER) | payer MEDICARE ==
[~2018-11-01] VITALS: Ht 180.3 cm; Wt 86.6 kg
[~2018-11-01 14:55] MED LIST: AMLO10TA4 PO; ASPI-612 PO; CALC667T2 PO; LEVO500T59 PO; LOVA40TA2 PO; METO25TA4 PO; MINO2.5T12 PO
[2018-11-01 16:26] LABS: BASO % 1 % (0-3); EOS # 0.3 x10^3/uL (0.0-0.7); EOS % 11 % (0-3); HEMATOCRIT 40.4 % (39.0-53.0); HEMOGLOBIN 13.2 g/dL (13.0-17.5); LYMPH # 0.6 x10^3/uL (1.0-4.8); LYMPH % 21 % (24-48); MEAN CORPUSCULAR HEMOGLOBIN 30 pg (25-35); MEAN CORPUSCULAR HGB CONC 33 g/dL (31-37); MEAN CORPUSCULAR VOLUME 93 fL (79-100); MONO # 0.4 x10^3/uL (0.0-1.1); MONO % 15 % (0-9); NEUT # 1.4 x10^3uL (1.8-7.7); NEUT % 52 % (31-73); PLATELET COUNT 111 x10^3/uL (140-400); RED BLOOD COUNT 4.36 x10^6/uL (4.30-5.70); RED CELL DISTRIBUTION WIDTH 14.5 % (11.5-14.5); WHITE BLOOD COUNT 2.7 x10^3/uL (4.0-11.0)
--- NOTE | 2018-11-01 16:29 | EKG ---
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
[2018-11-01 16:36] LABS: CALCIUM 8.6 mg/dL (8.5-10.1); CREATININE 5.7 mg/dL (0.7-1.3); GFR 11.8; POTASSIUM 3.5 mmol/L (3.5-5.1)
[2018-11-01 16:38] LABS: PROTHROMBIN TIME PATIENT 13.3 SEC (11.7-14.0)
--- NOTE | 2018-11-01 16:39 | RAD ---
EXAM: CHEST 1 VIEW History: Syncope COMPARISON: None available. TECHNIQUE: Single portable radiograph of the chest FINDINGS: The cardiac silhouette is unremarkable. The lungs are clear bilaterally. The costophrenic sulci are clear and well demarcated. IMPRESSION: No radiographic evidence of an acute cardiopulmonary process. Electronically signed by: Rafael Iniguez MD (11/01/2018 4:36 PM) [id number]
[2018-11-01 16:43] LABS: ALBUMIN 3.8 g/dL (3.4-5.0); ALBUMIN/GLOBULIN RATIO 0.9 (1.0-1.7); MAGNESIUM 1.9 mg/dL (1.8-2.4); TOTAL BILIRUBIN 0.7 mg/dL (0.2-1.0); TOTAL PROTEIN 8.1 g/dL (6.4-8.2)
--- NOTE | 2018-11-01 16:43 | RAD ---
CT scan of the head without contrast 11/01/2018 Clinical History: Syncope. Technique: Unenhanced, contiguous, 5 mm axial sections were obtained through the head. One or more of the following individualized dose reduction techniques were utilized for this study: 1. Automated exposure control. 2. Adjustment of the mA and/or kV according to patient size. 3. Use of iterative reconstruction technique. Findings: No previous studies are available for comparison. There is generalized parenchymal atrophy. Areas of decreased attenuation are seen within the periventricular and subcortical white matter of both cerebral hemispheres consistent with areas of small vessel ischemic disease. No acute parenchymal abnormality is seen. No extra-axial fluid collection is noted. No skull fracture is seen. Impression: No acute intracranial abnormality is seen. Electronically signed by: Stef Coulter MD (11/01/2018 4:40 PM) [facility]
[2018-11-01 18:30] VITALS: BP 150/79
--- NOTE | 2018-11-01 19:50 | PHYS DOC ---
Past Medical History Past Medical History: Hypertension, Renal Failure Past Surgical History: Other Additional Past Surgical Histo: FISTULA RIGHT ARM Alcohol Use: None Drug Use: None Adult General Chief Complaint Chief Complaint: SYNCOPE HPI HPI Patient is a 73 year old male with history of the hypertension, end-stage renal disease on dialysis Monday who presents to the ED today for syncope episode. Patient states he finished dialysis today, went to the bank and passed out. He does not know if he fell then passed out or passed out and fell. He states he has had the similar syncope episode before and was noted to have bacterial infection in his blood. He is currently alert and oriented 4. Patient denies any chest pain or shortness of breath. Review of Systems Review of Systems Constitutional: Denies fever or chills [] Eyes: Denies change in visual acuity, redness, or eye pain [] HENT: Denies nasal congestion or sore throat [] Respiratory: Denies cough or shortness of breath [] Cardiovascular: No additional information not addressed in HPI [] GI: Denies abdominal pain, nausea, vomiting, bloody stools or diarrhea [] : Denies dysuria or hematuria [] Musculoskeletal: Denies back pain or joint pain [] Integument: Denies rash or skin lesions [] Neurologic: Reports syncope episode. Denies headache, focal weakness or sensory changes [] All other systems were reviewed and found to be within normal limits, except as documented in this note. Allergies Allergies Allergies Coded Allergies Type Severity Reaction Last Updated Verified No Known Drug Allergies 12/31/16 No Physical Exam Physical Exam Constitutional: Well developed, well nourished, no acute distress, non-toxic appearance. [] HENT: Normocephalic, atraumatic, bilateral external ears normal, oropharynx moist, no oral exudates, nose normal. Left upper lip with an inner laceration approximately 1 cm. Patient refuses to let me close the laceration. Eyes: PERRLA, EOMI, conjunctiva normal, no discharge. [] Neck: Normal range of motion, no tenderness, supple, no stridor. [] Cardiovascular:Heart rate regular rhythm, no murmur [] Lungs & Thorax: Bilateral breath sounds clear to auscultation [] Abdomen: Bowel sounds normal, soft, no tenderness, no masses, no pulsatile masses. [] Skin: Warm, dry, no erythema, no rash. [] Back: No tenderness, no CVA tenderness. [] Extremities: No tenderness, no cyanosis, no clubbing, ROM intact, no edema. [] Neurologic: Alert and oriented X 3, normal motor function, normal sensory function, no focal deficits noted. Cranial nerves II through XII intact Psychologic: Affect normal, judgement normal, mood normal. [] Current Patient Data Vital Signs Vital Signs Date Time Temp Pulse Resp B/P (MAP) Pulse Ox O2 Delivery O2 Flow Rate FiO2 11/01/18 18:30 79 22 150/79 (102) 97 Room Air 11/01/18 15:00 98.2 98.2 Lab Values Laboratory Tests Test 11/01/18 15:30 White Blood Count 2.7 x10^3/uL (4.0-11.0) L Red Blood Count 4.36 x10^6/uL (4.30-5.70) Hemoglobin 13.2 g/dL (13.0-17.5) Hematocrit 40.4 % (39.0-53.0) Mean Corpuscular Volume 93 fL (79-100) Mean Corpuscular Hemoglobin 30 pg (25-35) Mean Corpuscular Hemoglobin Concent 33 g/dL (31-37) Red Cell Distribution Width 14.5 % (11.5-14.5) Platelet Count 111 x10^3/uL (140-400) L Neutrophils (%) (Auto) 52 % (31-73) Lymphocytes (%) (Auto) 21 % (24-48) L Monocytes (%) (Auto) 15 % (0-9) H Eosinophils (%) (Auto) 11 % (0-3) H Basophils (%) (Auto) 1 % (0-3) Neutrophils # (Auto) 1.4 x10^3uL (1.8-7.7) L Lymphocytes # (Auto) 0.6 x10^3/uL (1.0-4.8) L Monocytes # (Auto) 0.4 x10^3/uL (0.0-1.1) Eosinophils # (Auto) 0.3 x10^3/uL (0.0-0.7) Basophils # (Auto) 0.0 x10^3/uL (0.0-0.2) Prothrombin Time 13.3 SEC (11.7-14.0) Prothrombin Time INR 1.0 (0.8-1.1) Sodium Level 136 mmol/L (136-145) Potassium Level 3.5 mmol/L (3.5-5.1) Chloride Level 98 mmol/L (98-107) Carbon Dioxide Level 24 mmol/L (21-32) Anion Gap 14 (6-14) Blood Urea Nitrogen 25 mg/dL (8-26) Creatinine 5.7 mg/dL (0.7-1.3) H Estimated GFR (Cockcroft-Gault) 11.8 BUN/Creatinine Ratio 4 (6-20) L Glucose Level 96 mg/dL (70-99) Calcium Level 8.6 mg/dL (8.5-10.1) Magnesium Level 1.9 mg/dL (1.8-2.4) Total Bilirubin 0.7 mg/dL (0.2-1.0) Aspartate Amino Transferase (AST) 24 U/L (15-37) Alanine Aminotransferase (ALT) 21 U/L (16-63) Alkaline Phosphatase 78 U/L (46-116) Creatine Kinase 193 U/L (39-308) Creatine Kinase MB (Mass) 2.1 ng/mL (0.0-3.6) Creatine Kinase MB Relative Index 1.1 % (0-4) Troponin I Quantitative < 0.017 ng/mL (0.000-0.055) HM-Riy-R-Type Natriuretic Peptide 8406 pg/mL (0-449) H Total Protein 8.1 g/dL (6.4-8.2) Albumin 3.8 g/dL (3.4-5.0) Albumin/Globulin Ratio 0.9 (1.0-1.7) L Thyroid Stimulating Hormone (TSH) 3.024 uIU/mL (0.358-3.74) Laboratory Tests 11/01/18 15:30 Laboratory Tests 11/01/18 15:30 EKG EKG 15:[address] Rodriguez sinus rhythm heart rate 84 no STEMI[] Radiology/Procedures Radiology/Procedures [] Course & Med Decision Making Course & Med Decision Making Pertinent Labs and Imaging studies reviewed. (See chart for details) This is a 73-year-old male patient presenting to the ED today to be evaluated for syncope episode. Patient to dialysis, after dialysis went to the back and had a syncope episode. He did fall down. CBC with a WBC of 2.7, CMP with potassium of creatinine of 5.7, BUN is normal, potassium is normal. Chest x-ray is negative, CT of the head is negative. Results were communicated to patient. Offered admission, patient got very aggressive stating he is not staying he is going to sign out. He signed out AMA. He is alert oriented 4, able to make his own decisions. Given the risk of leaving AMA including and disability. Dragon Disclaimer Dragon Disclaimer This electronic medical record was generated, in whole or in part, using a voice recognition dictation system. Departure Departure Impression: Primary Impression: Syncope Additional Impressions: Fall ESRD (end stage renal disease) Disposition: 07 AGAINST MEDICAL ADVICE Condition: STABLE Referrals: STEPHANIE SAUCEDA (PCP) Problem Qualifiers Primary Impression: Syncope Syncope type: unspecified Qualified Codes: R55 - Syncope and collapse Additional Impressions: Fall Encounter type: initial encounter Qualified Codes: W19.XXXA - Unspecified fall, initial encounter ISABEL REYNOLDS [employer] November 01, 2018 19:50
== END 2018-11-01 18:51 | disposition left against medical advice (07) ==
LOC: ER 14:55
DX: S01.511A Laceration without foreign body of lip, initial encounter (principal); R55 Syncope and collapse; I12.0 Hypertensive chronic kidney disease with stage 5 chronic kidney disease or end stage renal disease; N18.6 End stage renal disease; Z99.2 Dependence on renal dialysis; W18.39XA Other fall on same level, initial encounter; Y93.89 Activity, other specified; Y92.89 Other specified places as the place of occurrence of the external cause; Y99.8 Other external cause status
CPT/HCPCS: 36415; 70450; 71045; 80053; 82553; 83735; 83880; 84443; 84484; 85025; 85610; 93005; 99285-25

== ENCOUNTER 2019-03-12 16:46 | Inpatient (IN) | payer MEDICARE ==
[~2019-03-12] VITALS: Ht 180.3 cm; Wt 78.9 kg
[2019-03-12 17:12] LABS: BASO % 1 % (0-3); EOS # 0.1 x10^3/uL (0.0-0.7); EOS % 4 % (0-3); HEMATOCRIT 39.7 % (39.0-53.0); HEMOGLOBIN 13.5 g/dL (13.0-17.5); LYMPH # 0.5 x10^3/uL (1.0-4.8); LYMPH % 14 % (24-48); MEAN CORPUSCULAR HEMOGLOBIN 33 pg (25-35); MEAN CORPUSCULAR HGB CONC 34 g/dL (31-37); MEAN CORPUSCULAR VOLUME 98 fL (79-100); MONO # 0.5 x10^3/uL (0.0-1.1); MONO % 14 % (0-9); NEUT # 2.3 x10^3/uL (1.8-7.7); NEUT % 67 % (31-73); PLATELET COUNT 138 x10^3/uL (140-400); RED BLOOD COUNT 4.05 x10^6/uL (4.30-5.70); RED CELL DISTRIBUTION WIDTH 14.8 % (11.5-14.5); WHITE BLOOD COUNT 3.5 x10^3/uL (4.0-11.0)
--- NOTE | 2019-03-12 17:19 | PHYS DOC ---
Past Medical History Past Medical History: Hypertension, Renal Failure Past Surgical History: Other Additional Past Surgical Histo: FISTULA RIGHT ARM Alcohol Use: None Drug Use: None Adult General Chief Complaint Chief Complaint: ALTERED MENTAL STATUS HPI HPI Patient is a 73-year-old male, with a past history of ESRD, on dialysis. He presents to the emergency department via EMS for evaluation of confusion. According to EMS, the patient went to his dialysis today, although he is unable to tell me exactly what time he went. He is able to answer some yes and no questions, but is having a hard time otherwise plan to get a comprehensive thoughts. His "last known normal" time is unknown. He denies any pain. He moves all extremities without any focal deficit. He denies any chest pain or shortness of breath. There are no alleviating or exacerbating factors to his symptoms. It is unclear who called EMS. Review of Systems Review of Systems Constitutional: Denies fever or chills [] Eyes: Denies change in visual acuity, redness, or eye pain [] HENT: Denies nasal congestion or sore throat [] Respiratory: Denies cough or shortness of breath [] Cardiovascular:The patient denies any shortness of breath, chest pain, palpitations, or orthopnea [] GI: Denies abdominal pain, nausea, vomiting, bloody stools or diarrhea [] : Denies dysuria or hematuria [] Musculoskeletal: Denies back pain or joint pain [] Integument: Denies rash or skin lesions [] Neurologic: Denies headache, focal weakness or sensory changes [] Endocrine: Denies polyuria or polydipsia [] All other systems were reviewed and found to be within normal limits, except as documented in this note. Current Medications Current Medications Current Medications Medications (Trade) Dose Ordered Sig/Elli Start Time Stop Time Status Last Admin Dose Admin Aspirin (Children'S Aspirin) 324 mg 1X ONCE 03/12/19 18:15 03/12/19 18:16 Allergies Allergies Allergies Coded Allergies Type Severity Reaction Last Updated Verified No Known Drug Allergies 12/31/16 No Physical Exam Physical Exam PHYSICAL EXAM: CONSTITUTIONAL: Well developed, well nourished HEAD: normocephalic, atraumatic EENT: PERRL, EOMI. Conjunctivae normal color, sclerae non-icteric; moist mucous membranes. NECK: Supple, non-tender; no meningismus. LUNGS: Lungs CTA, breathing even and unlabored. Normal air movement. HEART: Regular rate and rhythm, no murmur CHEST: No deformity; non-tender ABDOMEN: The abdomen is soft, and non-tender, no masses or bruits. EXTREM: Normal ROM; no deformity, no calf tenderness. Normal pulses palpable in all extremities. There is no pedal edema. There is an AV fistula in the left arm, with a palpable thrill. SKIN: No rash; no diaphoresis NEURO: Alert; patient is oriented to person and place, but disoriented to time. Might have some expressive aphasia, it is unclear CN's grossly intact; strength grossly intact without focal deficit. BACK: No CVA TTP. Current Patient Data Vital Signs Vital Signs Date Time Temp Pulse Resp B/P (MAP) Pulse Ox O2 Delivery O2 Flow Rate FiO2 03/12/19 16:56 97.7 92 16 175/89 (117) 99 Room Air 97.7 Lab Values Laboratory Tests Test 03/12/19 17:00 03/12/19 17:04 White Blood Count 3.5 x10^3/uL (4.0-11.0) L Red Blood Count 4.05 x10^6/uL (4.30-5.70) L Hemoglobin 13.5 g/dL (13.0-17.5) Hematocrit 39.7 % (39.0-53.0) Mean Corpuscular Volume 98 fL (79-100) Mean Corpuscular Hemoglobin 33 pg (25-35) Mean Corpuscular Hemoglobin Concent 34 g/dL (31-37) Red Cell Distribution Width 14.8 % (11.5-14.5) H Platelet Count 138 x10^3/uL (140-400) L Neutrophils (%) (Auto) 67 % (31-73) Lymphocytes (%) (Auto) 14 % (24-48) L Monocytes (%) (Auto) 14 % (0-9) H Eosinophils (%) (Auto) 4 % (0-3) H Basophils (%) (Auto) 1 % (0-3) Neutrophils # (Auto) 2.3 x10^3/uL (1.8-7.7) Lymphocytes # (Auto) 0.5 x10^3/uL (1.0-4.8) L Monocytes # (Auto) 0.5 x10^3/uL (0.0-1.1) Eosinophils # (Auto) 0.1 x10^3/uL (0.0-0.7) Basophils # (Auto) 0.0 x10^3/uL (0.0-0.2) Prothrombin Time 12.9 SEC (11.7-14.0) Prothrombin Time INR 1.0 (0.8-1.1) Activated Partial Thromboplast Time 28 SEC (24-38) Sodium Level 130 mmol/L (136-145) L Potassium Level 4.2 mmol/L (3.5-5.1) Chloride Level 98 mmol/L (98-107) Carbon Dioxide Level 18 mmol/L (21-32) L Anion Gap 14 (6-14) Blood Urea Nitrogen 35 mg/dL (8-26) H Creatinine 8.7 mg/dL (0.7-1.3) H Estimated GFR (Cockcroft-Gault) 7.3 BUN/Creatinine Ratio 4 (6-20) L Glucose Level 100 mg/dL (70-99) H Lactic Acid Level 1.2 mmol/L (0.4-2.0) Calcium Level 8.7 mg/dL (8.5-10.1) Magnesium Level 2.0 mg/dL (1.8-2.4) Total Bilirubin 0.5 mg/dL (0.2-1.0) Aspartate Amino Transferase (AST) 19 U/L (15-37) Alanine Aminotransferase (ALT) 16 U/L (16-63) Alkaline Phosphatase 128 U/L (46-116) H Troponin I Quantitative < 0.017 ng/mL (0.000-0.055) Total Protein 8.5 g/dL (6.4-8.2) H Albumin 3.8 g/dL (3.4-5.0) Albumin/Globulin Ratio 0.8 (1.0-1.7) L Lipase 230 U/L (73-393) Thyroid Stimulating Hormone (TSH) 2.161 uIU/mL (0.358-3.74) Free Thyroxine 0.70 ng/dL (0.76-1.46) L Glucose (Fingerstick) 91 mg/dL (70-99) Laboratory Tests 03/12/19 17:00 Laboratory Tests 03/12/19 17:00 EKG EKG [] Normal sinus rhythm at a rate of 78 bpm with frequent PVCs, normal axis, first- degree AV block with otherwise normal intervals. There are no acute ischemic ST/T changes. Radiology/Procedures Radiology/Procedures [PROCEDURE: PORTABLE CHEST 1V Single view chest dated 03/12/2019. Comparison made to 11/01/2018. CLINICAL INDICATION: Altered mental status. FINDINGS: single upright portable exam performed. Heart size mildly enlarged, stable. There is some patchy and linear opacity at both lung bases, unchanged. No consolidation or pleural effusion. No pneumothorax. IMPRESSION: No acute radiographic abnormality. Stable findings compared to 11/01/2018. ] PROCEDURE: CT HEAD WO CONTRAST PQRS Compliance statement: One or more of the following individualized dose reduction techniques were utilized for this examination: 1. Automated exposure control. 2. Adjustment of the mA and/or kV according to patient size. 3. Use of iterative reconstruction technique. Indication:Altered mental status. TECHNIQUE: CT head without IV contrast COMPARISON: 11/01/2018. FINDINGS: No pathologic extra-axial or intra-axial fluid collection. The ventricles and basal cisterns are within normal limits. No acute intracranial bleed. Mild periventricular low-attenuation of the right matter noted. No focal loss of saha-white differentiation. Bilateral basal ganglia calcifications, nonspecific. Orbits are within normal limits. No suspicious calvarial lesion. Visualized paranasal sinuses and mastoid air cells are clear. IMPRESSION: No acute intracranial bleed. If concern for acute ischemic stroke is high, please consider MRI brain. Mild white matter changes likely secondary to chronic microvascular ischemic disease. Course & Med Decision Making Course & Med Decision Making Pertinent Labs and Imaging studies reviewed. (See chart for details) []5:55 PM: The patient's condition remains stable. I spoke with the hospitalist, who accepted the patient to the hospital for further evaluation and treatment. I also spoke with Dr. Reed, neurology. Dragon Disclaimer Dragon Disclaimer This electronic medical record was generated, in whole or in part, using a voice recognition dictation system. NIHSS Stroke Scale NIH Stroke Scale: NIH Stroke Scale Response (Comments) Value Level of Consciousness: 0 Alert/Responsive 0 LOC Questions: 1 Answers one correctly 1 LOC Commands: 1 Performs one task 1 Best Gaze: 0 Normal 0 Visual: 0 No visual loss 0 Facial Palsy: 0 Normal, symmetrical 0 Motor - Left Arm 0 No drift 0 Motor - Right Arm 0 No drift 0 Motor - Left Leg 0 No drift 0 Motor: Right Leg 0 No drift 0 Limb Ataxia: 0 Absent 0 Sensory: 0 No loss 0 Best Language: 1 Mild to mod aphasia 1 Dysathria: 0 Normal 0 Extinction and Inattention: 0 Normal 0 Total 3 Departure Departure Impression: Primary Impression: Altered mental status Additional Impression: ESRD (end stage renal disease) Disposition: 09 ADMITTED INPATIENT Admitting Physician: RODGER Condition: STABLE Referrals: STEPHANIE SAUCEDA (PCP) Problem Qualifiers ELOY PACHECO MD Mar 12, 2019 17:19
[2019-03-12 17:20] LABS: PROTHROMBIN TIME PATIENT 12.9 SEC (11.7-14.0)
--- NOTE | 2019-03-12 17:24 | RAD ---
Single view chest dated 03/12/2019. Comparison made to 11/01/2018. CLINICAL INDICATION: Altered mental status. FINDINGS: single upright portable exam performed. Heart size mildly enlarged, stable. There is some patchy and linear opacity at both lung bases, unchanged. No consolidation or pleural effusion. No pneumothorax. IMPRESSION: No acute radiographic abnormality. Stable findings compared to 11/01/2018. Electronically signed by: Herber Flores MD (03/12/2019 5:21 PM) [id number]
--- NOTE | 2019-03-12 17:29 | RAD ---
PQRS Compliance statement: One or more of the following individualized dose reduction techniques were utilized for this examination: 1. Automated exposure control. 2. Adjustment of the mA and/or kV according to patient size. 3. Use of iterative reconstruction technique. Indication:Altered mental status. TECHNIQUE: CT head without IV contrast COMPARISON: 11/01/2018. FINDINGS: No pathologic extra-axial or intra-axial fluid collection. The ventricles and basal cisterns are within normal limits. No acute intracranial bleed. Mild periventricular low-attenuation of the right matter noted. No focal loss of saha-white differentiation. Bilateral basal ganglia calcifications, nonspecific. Orbits are within normal limits. No suspicious calvarial lesion. Visualized paranasal sinuses and mastoid air cells are clear. IMPRESSION: No acute intracranial bleed. If concern for acute ischemic stroke is high, please consider MRI brain. Mild white matter changes likely secondary to chronic microvascular ischemic disease. Electronically signed by: Matthew Mason DO (03/12/2019 5:27 PM) [facility]
[2019-03-12 17:30] LABS: CALCIUM 8.7 mg/dL (8.5-10.1); CREATININE 8.7 mg/dL (0.7-1.3); GFR 7.3; POTASSIUM 4.2 mmol/L (3.5-5.1)
[2019-03-12 17:34] LABS: ALBUMIN 3.8 g/dL (3.4-5.0); ALBUMIN/GLOBULIN RATIO 0.8 (1.0-1.7); TOTAL BILIRUBIN 0.5 mg/dL (0.2-1.0); TOTAL PROTEIN 8.5 g/dL (6.4-8.2)
[2019-03-12 17:41] LABS: FREE T4 0.7 ng/dL (0.76-1.46); THYROID STIM HORMONE (TSH) 2.161 uIU/mL (0.358-3.74)
[2019-03-12] MEDS ORDERED: ACETAMINOPHEN 650 MG SUPP.RECT. PR PRN (18:00)
[2019-03-12] MEDS ORDERED: ASPIRIN RECTAL 300 MG SUPP. PR PRN (18:00)
[2019-03-12] MEDS ORDERED: ACETAMINOPHEN 325 MG TABLET. PO PRN (18:00)
[2019-03-12] MEDS ORDERED: ASPIRIN CHEWABLE 81 MG TABLET. PO ONE (18:15)
[2019-03-12] MEDS ORDERED: hydrALAZINE 20 MG/ML VIAL. IVP ONE (19:00)
[2019-03-12 19:30] VITALS: BP 182/109
[2019-03-12] MEDS ORDERED: hydrALAZINE 20 MG/ML VIAL. IVP PRN (20:15)
[2019-03-12 23:30] VITALS: BP 98/57
[2019-03-13] MEDS ORDERED: INFLUENZA VAX SCREEN BY RX. MC ONE (03:15)
[2019-03-13 03:30] VITALS: BP 136/61
[2019-03-13 05:37] LABS: CHOLESTEROL/HDL RATIO 2.5
--- NOTE | 2019-03-13 06:10 | EKG ---
[facility] [address] [place] [address] Test Date: 2019-03-12 Test Time: 17:02:24 Pat Name: TR BALTAZAR Department: Room: Gender: M Master Ship: : [id number] Requested By: ELOY PACHECO Order Number: [id number] Reading MD: Measurements Intervals [place] Rate: 78 P: 36 MA: 240 QRS: 42 QRSD: 92 T: 96 QT: 430 QTc: 494 Interpretive Statements SINUS RHYTHM VENTRICULAR PREMATURE COMPLEX(ES), BIGEMINY PROLONGED MA INTERVAL LEFT ATRIAL ABNORMALITY T ABNORMALITY IN HIGH LATERAL LEADS PROLONGED QT ABNORMAL ECG RI6.01 No previous ECG available for comparison
[2019-03-13 07:00] VITALS: BP 113/65
[2019-03-13] MEDS ORDERED: ASPIRIN ENTERIC COATED 325 MG TABLET.DR. PO SCH (08:00)
[2019-03-13] MEDS ORDERED: FLU VAX QS 2019-20 (36MOS+)/PF 0.5 ML SYRINGE. VAX IM ONE (09:00)
--- NOTE | 2019-03-13 10:20 | PDOC2 ---
CARDIAC CONSULT DATE OF CONSULT Date of Consult DATE: 03/13/19 TIME: 10:15 REASON FOR CONSULT Reason for Consult: Frequent PVCs REFERRING PHYSICIAN Referring Physician: Dr. Hancock SOURCE Source: Chart review, Patient HISTORY OF PRESENT ILLNESS HISTORY OF PRESENT ILLNESS This is a 73 yo male who presented secondary to altered mental status. Patient reports he was confused follow HD and neighbor called EMS. He denies any dizziness, diaphoresis, palpitations, shortness of breath, or nausea/vomiting. Mentation has returned to baseline this morning. youth nutritional monitor noted with frequent PVCs, which prompted this consult. PAST MEDICAL HISTORY Cardiovascular: HTN, Hyperlipidemia Renal/: Chronic renal failure (on HD) PAST SURGICAL HISTORY Past Surgical History: Other (AV shunt ) FAMILY HISTORY Family History: Hypertension SOCIAL HISTORY Smoke: Quit (25 years ago) ALCOHOL: none Drugs: None Lives: Alone CURRENT MEDICATIONS CURRENT MEDICATIONS Current Medications Medications (Trade) Dose Ordered Sig/Elli Route PRN Reason Start Time Stop Time Status Last Admin Dose Admin Aspirin (Children'S Aspirin) 324 mg 1X ONCE PO 03/12/19 18:15 03/12/19 18:16 DC 03/12/19 18:05 Hydralazine HCl (Apresoline Inj) 10 mg 1X ONCE IVP 03/12/19 19:00 03/12/19 19:01 DC 03/12/19 19:09 Hydralazine HCl (Apresoline Inj) 25 mg PRN Q8HRS PRN IVP ELEVATED BP, SEE COMMENTS 03/12/19 20:15 03/12/19 21:55 Lorazepam (Ativan Inj) 1 mg PRN Q6HRS PRN IV ANXIETY / AGITATION 03/12/19 21:00 03/12/19 21:55 ALLERGIES ALLERGIES: Coded Allergies: No Known Drug Allergies (Unverified , 12/31/16) ROS Review of System 14 point ROS conducted with pertinent positives noted above in HPI. PHYSICAL EXAM General: Alert, Oriented X3, Cooperative, No acute distress HEENT: Atraumatic, Mucous membr. moist/pink Lungs: Clear to auscultation Heart: Regular rate, Normal S1, Normal S2 Abdomen: Soft, No tenderness VITALS/I&O VITALS/I&O: Vital Signs Date Time Temp Pulse Resp B/P (MAP) Pulse Ox O2 Delivery O2 Flow Rate FiO2 03/13/19 07:00 98.6 69 16 113/65 (81) 97 Room Air 98.6 I & O 03/12/19 03/12/19 03/13/19 15:00 23:00 07:00 Intake Total 0 ml Output Total 0 ml Balance 0 ml LABS Lab: Laboratory Tests Test 03/12/19 17:00 03/12/19 17:04 03/13/19 03:20 White Blood Count 3.5 x10^3/uL (4.0-11.0) L Red Blood Count 4.05 x10^6/uL (4.30-5.70) L Hemoglobin 13.5 g/dL (13.0-17.5) Hematocrit 39.7 % (39.0-53.0) Mean Corpuscular Volume 98 fL (79-100) Mean Corpuscular Hemoglobin 33 pg (25-35) Mean Corpuscular Hemoglobin Concent 34 g/dL (31-37) Red Cell Distribution Width 14.8 % (11.5-14.5) H Platelet Count 138 x10^3/uL (140-400) L Neutrophils (%) (Auto) 67 % (31-73) Lymphocytes (%) (Auto) 14 % (24-48) L Monocytes (%) (Auto) 14 % (0-9) H Eosinophils (%) (Auto) 4 % (0-3) H Basophils (%) (Auto) 1 % (0-3) Neutrophils # (Auto) 2.3 x10^3/uL (1.8-7.7) Lymphocytes # (Auto) 0.5 x10^3/uL (1.0-4.8) L Monocytes # (Auto) 0.5 x10^3/uL (0.0-1.1) Eosinophils # (Auto) 0.1 x10^3/uL (0.0-0.7) Basophils # (Auto) 0.0 x10^3/uL (0.0-0.2) Prothrombin Time 12.9 SEC (11.7-14.0) Prothrombin Time INR 1.0 (0.8-1.1) Activated Partial Thromboplast Time 28 SEC (24-38) Sodium Level 130 mmol/L (136-145) L Potassium Level 4.2 mmol/L (3.5-5.1) Chloride Level 98 mmol/L (98-107) Carbon Dioxide Level 18 mmol/L (21-32) L Anion Gap 14 (6-14) Blood Urea Nitrogen 35 mg/dL (8-26) H Creatinine 8.7 mg/dL (0.7-1.3) H Estimated GFR (Cockcroft-Gault) 7.3 BUN/Creatinine Ratio 4 (6-20) L Glucose Level 100 mg/dL (70-99) H Lactic Acid Level 1.2 mmol/L (0.4-2.0) Calcium Level 8.7 mg/dL (8.5-10.1) Magnesium Level 2.0 mg/dL (1.8-2.4) Total Bilirubin 0.5 mg/dL (0.2-1.0) Aspartate Amino Transferase (AST) 19 U/L (15-37) Alanine Aminotransferase (ALT) 16 U/L (16-63) Alkaline Phosphatase 128 U/L (46-116) H Troponin I Quantitative < 0.017 ng/mL (0.000-0.055) Total Protein 8.5 g/dL (6.4-8.2) H Albumin 3.8 g/dL (3.4-5.0) Albumin/Globulin Ratio 0.8 (1.0-1.7) L Lipase 230 U/L (73-393) Thyroid Stimulating Hormone (TSH) 2.161 uIU/mL (0.358-3.74) Free Thyroxine 0.70 ng/dL (0.76-1.46) L Glucose (Fingerstick) 91 mg/dL (70-99) Triglycerides Level 56 mg/dL (0-150) Cholesterol Level 103 mg/dL (0-200) LDL Cholesterol, Calculated 51 mg/dL (0-100) VLDL Cholesterol, Calculated 11 mg/dL (0-40) Non-HDL Cholesterol Calculated 62 mg/dL (0-129) HDL Cholesterol 41 mg/dL (40-60) Cholesterol/HDL Ratio 2.5 Laboratory Tests 03/12/19 17:00 Laboratory Tests 03/12/19 17:00 ASSESSMENT/PLAN ASSESSMENT/PLAN 1. Metabolic encephalopathy; resolved 2. Arrhythmia; frequent PVCs. Mg, TSH WNL. No significant arrhythmias noted on tele. Now SR with occasional PVCs 3. ESRD on HD; uremic 4. Accelerated hypertension; now controlled with resumption of meds. 5. Hyperparathyroidism. As per the primary service Recommendations Echo pending to assess LV systolic function Continue low-dose BB Supportive care from a CV standpoint. CARLTON MAGANA APRN Mar 13, 2019 10:20
--- NOTE | 2019-03-13 10:33 | RAD ---
MRI Brain without contrast History:CVA, altered mental status Technique: Multiplanar, multisequential noncontrast MR imaging was performed of the brain. Comparison: None Findings: There is significant motion degradation. There is no restricted diffusion suggestive of recent infarct or cytotoxic edema. Ventricular size is within normal limits. There is mild generalized supratentorial involutional change. There is multifocal at least moderate T2 and FLAIR hyperintense signal abnormality of the supratentorial parenchyma bilaterally greatest of the parietal and periatrial white matter. There is appearance of some increased FLAIR signal of the left caudate nucleus although difficult to confirm on the T2 sequence and therefore may be artifactual. There is no significant hemosiderin deposition of the brain parenchyma. There is no midline shift or extra-axial fluid collection. Paranasal sinuses and mastoid air cells are overall aerated. Cerebellar tonsils are normal in location. There is preserved marrow signal of the clivus. Pituitary gland is small. Impression: 1. There is no evidence of recent infarct or intracranial mass effect. There is at least moderate T2 and FLAIR hyperintense signal abnormality of the supratentorial parenchyma bilaterally, nonspecific findings more commonly due to chronic microvascular ischemic disease in a patient this age. 2. There is mild generalized supratentorial involutional change. MRA Brain History:CVA, altered mental status Technique: 3-D [id number] MR angiography was performed of the brain. Comparison: None Findings: Determination of any degree of stenosis is based on NASCET criteria. There is some motion degradation. Both vertebral arteries constitute basilar artery, dominant left vertebral artery. There is visualization of the internal carotid arteries bilaterally at the skull base. There is patent anterior communicating artery. No significant posterior communicating arteries are visualized, vessels in this region which believed to be venous. There is visualization of segments of the anterior, middle, posterior cerebral arteries bilaterally. There is visualization of segments of bilateral superior cerebellar arteries and AICAs. Region of PICAs was not fully included on this exam. It is difficult to exclude a small aneurysm projecting medially from the anterior left cavernous internal carotid artery about 1-2 mm although findings may be accentuated by motion and origin of the left ophthalmic artery is poorly distinguished. There is also small focus of increased flow-related enhancement projecting inferiorly from the right supraclinoid internal carotid artery about 1 to 2 mm. No large vessel occlusion is identified. No significant intracranial stenosis is identified. Impression: 1. No significant intracranial stenosis or vessel occlusion is identified of the visualized intracranial vessels. Exam is degraded by motion. 2. Findings are suspicious for small 1 to 2 mm aneurysm projecting medially from the anterior left cavernous internal carotid artery although poorly otherwise poorly characterized due to motion and origin of the left ophthalmic artery is poorly distinguished on this exam. There is also small focus of increased flow-related enhancement projecting inferiorly from the right supraclinoid internal carotid artery. Small aneurysm is difficult to exclude, other consideration of an infundibulum although vessel not well-visualized distally on this motion degraded exam. Neck MRA without contrast History:CVA, altered mental status Technique: [id number] MR angiography was performed of the neck. Comparison: None Findings: Determination of any degree of stenosis is based on NASCET criteria. There is significant motion degradation. There is antegrade flow of the bilateral vertebral arteries as well as common and internal carotid arteries. Accurate evaluation for stenosis is very limited due to degree of motion. No convincing vessel occlusion is identified of the cervical vertebral arteries or carotid arteries. Impression: 1. There is significant motion degradation, no convincing vessel occlusion identified of the cervical arterial vasculature, cannot accurately evaluate for stenosis. Electronically signed by: Cesar Small MD (03/13/2019 10:31 AM) [id number]
[2019-03-13 11:15] VITALS: BP 143/81
--- NOTE | 2019-03-13 12:44 | PDOC2 ---
NEUROLOGY CONSULT Date of Admission Date of Admission DATE: 03/13/19 TIME: 12:34 Reason for Consult Reason for Consult: Altered mental status Referring Physician Referring Physician: Dr. Hancock Source Source: Chart review, Patient History of Present Illness History of Present Illness The patient is a 73-year-old right-handed male with end-stage renal disease on dialysis and came to the emergency department for confusion. He was a dialysis and acting confused, so we do not know the time of onset. He denies any history of stroke, seizure, or head injury. He feels fine now. There were no focal findings and NIH score was elevated only due to the cognitive issues. I see that my associate, Dr. Wellington, saw him 2 years ago for metabolic encephalopathy ascribed to hyperthermia, he had been sitting in a hot car. Past Medical History Cardiovascular: HTN, Hyperlipidemia Renal/: Chronic renal failure (dialysis) Past Surgical History Past Surgical History: Other (Left AV shunt) Family History Family History: No pertinent hx Social History Social History Single, no alcohol or tobacco Current Medications Current Medications Current Medications Aspirin (Children'S Aspirin) 324 mg 1X ONCE PO Last administered on 03/12/19at 18:05; Start 03/12/19 at 18:15; Stop 03/12/19 at 18:16; Status DC Acetaminophen (Tylenol) 650 mg PRN Q6HRS PRN PO TEMP > 100.4F; Start 03/12/19 at 18:00 Acetaminophen (Tylenol Supp) 650 mg PRN Q4HRS PRN HI TEMP > 100.4F; Start 03/12/19 at 18:00 Aspirin (Ecotrin) 325 mg DAILYWBKFT PO Last administered on 03/13/19at 12:29; Start 03/13/19 at 08:00 Aspirin (Aspirin Rectal Supp) 300 mg PRN DAILY PRN HI IF UNABLE TO TAKE PO; Start 03/12/19 at 18:00 Hydralazine HCl (Apresoline Inj) 10 mg 1X ONCE IVP Last administered on 03/12/19at 19:09; Start 03/12/19 at 19:00; Stop 03/12/19 at 19:01; Status DC Hydralazine HCl (Apresoline Inj) 25 mg PRN Q8HRS PRN IVP ELEVATED BP, SEE COMMENTS Last administered on 03/12/19at 21:55; Start 03/12/19 at 20:15 Lorazepam (Ativan Inj) 1 mg PRN Q6HRS PRN IV ANXIETY / AGITATION Last administered on 03/12/19at 21:55; Start 03/12/19 at 21:00 Info (FLU VACCINE SCREEN per RX) 1 each 1X ONCE MC ; Start 03/13/19 at 03:15; Stop 03/13/19 at 03:16; Status UNV Influenza Virus Vaccine Quadrival (Afluria Quad 2019-20 (3yr Up) Syringe) 0.5 ml ONCE ONCE VAX IM ; Start 03/13/19 at 09:00; Stop 03/13/19 at 09:01; Status DC Active Scripts Active Levaquin (Levofloxacin) 500 Mg Tablet 500 Mg PO DAILY06 7 Days Metoprolol Tartrate 25 Mg Tablet 12.5 Mg PO BID 30 Days Aspirin Ec (Aspirin) 81 Mg Tablet.dr 81 Mg PO DAILYWBKFT 30 Days Reported Lovastatin 40 Mg Tablet 40 Mg PO HS Calphron (Calcium Acetate) 667 Mg Tablet 667 Mg PO TIDWMEALS Minoxidil 2.5 Mg Tablet 10 Mg PO DAILY Norvasc (Amlodipine Besylate) 10 Mg Tablet 10 Mg PO BID Allergies Allergies: Coded Allergies: No Known Drug Allergies (Unverified , 12/31/16) ROS Review of System Negative for fever, chills, weight loss, shortness of breath, chest pain, indigestion, hematochezia, melena, and dysuria. Full 14-point review of systems is negative. Physical Exam Physical Examination General: Well-developed, well-nourished black male in no acute distress HEENT: Normocephalic and�atraumatic. Tympanic membranes clear.� Neck: Supple without bruit, no meningismus� Musculoskeletal: Stability:�see neurologic. Gait exam:�see neurologic. Tone:�see neurologic.�Strength:�see neurologic.� Neurological: Mental Status:�intact, orientation, memory, attention span/concentration, language, fund of knowledge normal. Cranial Nerves:�Pupils equal and reactive to light, extraocular movements are�intact, visual shaw are full to confrontation. Facial sensation is normal. There is no facial asymmetry. Vestibulo-ocular reflex is intact. Palate elevates and tongue protrudes in midline. All other cranial related problems are negative except as mentioned before.�Reflexes:1+ and symmetric with flexor plantar responses. Motor:�5/5 strength with normal tone and bulk. Coordination:�Finger-nose finger and obru-ad-uszt testing are normal. Rapid alternating movements and fine finger movements are intact. Gait:�not tested. Sensory:�Normal pinprick.� Vitals VITALS Vital Signs Date Time Temp Pulse Resp B/P (MAP) Pulse Ox O2 Delivery O2 Flow Rate FiO2 03/13/19 11:15 97.6 66 18 143/81 (101) 94 Room Air 97.6 Labs Labs Laboratory Tests Test 03/12/19 17:00 03/12/19 17:04 03/13/19 03:20 White Blood Count 3.5 x10^3/uL (4.0-11.0) Red Blood Count 4.05 x10^6/uL (4.30-5.70) Hemoglobin 13.5 g/dL (13.0-17.5) Hematocrit 39.7 % (39.0-53.0) Mean Corpuscular Volume 98 fL (79-100) Mean Corpuscular Hemoglobin 33 pg (25-35) Mean Corpuscular Hemoglobin Concent 34 g/dL (31-37) Red Cell Distribution Width 14.8 % (11.5-14.5) Platelet Count 138 x10^3/uL (140-400) Neutrophils (%) (Auto) 67 % (31-73) Lymphocytes (%) (Auto) 14 % (24-48) Monocytes (%) (Auto) 14 % (0-9) Eosinophils (%) (Auto) 4 % (0-3) Basophils (%) (Auto) 1 % (0-3) Neutrophils # (Auto) 2.3 x10^3/uL (1.8-7.7) Lymphocytes # (Auto) 0.5 x10^3/uL (1.0-4.8) Monocytes # (Auto) 0.5 x10^3/uL (0.0-1.1) Eosinophils # (Auto) 0.1 x10^3/uL (0.0-0.7) Basophils # (Auto) 0.0 x10^3/uL (0.0-0.2) Prothrombin Time 12.9 SEC (11.7-14.0) Prothromb Time International Ratio 1.0 (0.8-1.1) Activated Partial Thromboplast Time 28 SEC (24-38) Sodium Level 130 mmol/L (136-145) Potassium Level 4.2 mmol/L (3.5-5.1) Chloride Level 98 mmol/L (98-107) Carbon Dioxide Level 18 mmol/L (21-32) Anion Gap 14 (6-14) Blood Urea Nitrogen 35 mg/dL (8-26) Creatinine 8.7 mg/dL (0.7-1.3) Estimated GFR (Cockcroft-Gault) 7.3 BUN/Creatinine Ratio 4 (6-20) Glucose Level 100 mg/dL (70-99) Lactic Acid Level 1.2 mmol/L (0.4-2.0) Calcium Level 8.7 mg/dL (8.5-10.1) Magnesium Level 2.0 mg/dL (1.8-2.4) Total Bilirubin 0.5 mg/dL (0.2-1.0) Aspartate Amino Transf (AST/SGOT) 19 U/L (15-37) Alanine Aminotransferase (ALT/SGPT) 16 U/L (16-63) Alkaline Phosphatase 128 U/L (46-116) Troponin I Quantitative < 0.017 ng/mL (0.000-0.055) Total Protein 8.5 g/dL (6.4-8.2) Albumin 3.8 g/dL (3.4-5.0) Albumin/Globulin Ratio 0.8 (1.0-1.7) Lipase 230 U/L (73-393) Thyroid Stimulating Hormone (TSH) 2.161 uIU/mL (0.358-3.74) Free Thyroxine 0.70 ng/dL (0.76-1.46) Glucose (Fingerstick) 91 mg/dL (70-99) Triglycerides Level 56 mg/dL (0-150) Cholesterol Level 103 mg/dL (0-200) LDL Cholesterol, Calculated 51 mg/dL (0-100) VLDL Cholesterol, Calculated 11 mg/dL (0-40) Non-HDL Cholesterol Calculated 62 mg/dL (0-129) HDL Cholesterol 41 mg/dL (40-60) Cholesterol/HDL Ratio 2.5 Laboratory Tests Test 03/12/19 17:00 03/12/19 17:04 03/13/19 03:20 White Blood Count 3.5 x10^3/uL (4.0-11.0) Red Blood Count 4.05 x10^6/uL (4.30-5.70) Hemoglobin 13.5 g/dL (13.0-17.5) Hematocrit 39.7 % (39.0-53.0) Mean Corpuscular Volume 98 fL (79-100) Mean Corpuscular Hemoglobin 33 pg (25-35) Mean Corpuscular Hemoglobin Concent 34 g/dL (31-37) Red Cell Distribution Width 14.8 % (11.5-14.5) Platelet Count 138 x10^3/uL (140-400) Neutrophils (%) (Auto) 67 % (31-73) Lymphocytes (%) (Auto) 14 % (24-48) Monocytes (%) (Auto) 14 % (0-9) Eosinophils (%) (Auto) 4 % (0-3) Basophils (%) (Auto) 1 % (0-3) Neutrophils # (Auto) 2.3 x10^3/uL (1.8-7.7) Lymphocytes # (Auto) 0.5 x10^3/uL (1.0-4.8) Monocytes # (Auto) 0.5 x10^3/uL (0.0-1.1) Eosinophils # (Auto) 0.1 x10^3/uL (0.0-0.7) Basophils # (Auto) 0.0 x10^3/uL (0.0-0.2) Prothrombin Time 12.9 SEC (11.7-14.0) Prothromb Time International Ratio 1.0 (0.8-1.1) Activated Partial Thromboplast Time 28 SEC (24-38) Sodium Level 130 mmol/L (136-145) Potassium Level 4.2 mmol/L (3.5-5.1) Chloride Level 98 mmol/L (98-107) Carbon Dioxide Level 18 mmol/L (21-32) Anion Gap 14 (6-14) Blood Urea Nitrogen 35 mg/dL (8-26) Creatinine 8.7 mg/dL (0.7-1.3) Estimated GFR (Cockcroft-Gault) 7.3 BUN/Creatinine Ratio 4 (6-20) Glucose Level 100 mg/dL (70-99) Lactic Acid Level 1.2 mmol/L (0.4-2.0) Calcium Level 8.7 mg/dL (8.5-10.1) Magnesium Level 2.0 mg/dL (1.8-2.4) Total Bilirubin 0.5 mg/dL (0.2-1.0) Aspartate Amino Transf (AST/SGOT) 19 U/L (15-37) Alanine Aminotransferase (ALT/SGPT) 16 U/L (16-63) Alkaline Phosphatase 128 U/L (46-116) Troponin I Quantitative < 0.017 ng/mL (0.000-0.055) Total Protein 8.5 g/dL (6.4-8.2) Albumin 3.8 g/dL (3.4-5.0) Albumin/Globulin Ratio 0.8 (1.0-1.7) Lipase 230 U/L (73-393) Thyroid Stimulating Hormone (TSH) 2.161 uIU/mL (0.358-3.74) Free Thyroxine 0.70 ng/dL (0.76-1.46) Glucose (Fingerstick) 91 mg/dL (70-99) Triglycerides Level 56 mg/dL (0-150) Cholesterol Level 103 mg/dL (0-200) LDL Cholesterol, Calculated 51 mg/dL (0-100) VLDL Cholesterol, Calculated 11 mg/dL (0-40) Non-HDL Cholesterol Calculated 62 mg/dL (0-129) HDL Cholesterol 41 mg/dL (40-60) Cholesterol/HDL Ratio 2.5 Images Images MRI Brain without contrast History:CVA, altered mental status Technique: Multiplanar, multisequential noncontrast MR imaging was performed of the brain. Comparison: None Findings: There is significant motion degradation. There is no restricted diffusion suggestive of recent infarct or cytotoxic edema. Ventricular size is within normal limits. There is mild generalized supratentorial involutional change. There is multifocal at least moderate T2 and FLAIR hyperintense signal abnormality of the supratentorial parenchyma bilaterally greatest of the parietal and periatrial white matter. There is appearance of some increased FLAIR signal of the left caudate nucleus although difficult to confirm on the T2 sequence and therefore may be artifactual. There is no significant hemosiderin deposition of the brain parenchyma. There is no midline shift or extra-axial fluid collection. Paranasal sinuses and mastoid air cells are overall aerated. Cerebellar tonsils are normal in location. There is preserved marrow signal of the clivus. Pituitary gland is small. Impression: 1. There is no evidence of recent infarct or intracranial mass effect. There is at least moderate T2 and FLAIR hyperintense signal abnormality of the supratentorial parenchyma bilaterally, nonspecific findings more commonly due to chronic microvascular ischemic disease in a patient this age. 2. There is mild generalized supratentorial involutional change. MRA Brain History:CVA, altered mental status Technique: 3-D [id number] MR angiography was performed of the brain. Comparison: None Findings: Determination of any degree of stenosis is based on NASCET criteria. There is some motion degradation. Both vertebral arteries constitute basilar artery, dominant left vertebral artery. There is visualization of the internal carotid arteries bilaterally at the skull base. There is patent anterior communicating artery. No significant posterior communicating arteries are visualized, vessels in this region which believed to be venous. There is visualization of segments of the anterior, middle, posterior cerebral arteries bilaterally. There is visualization of segments of bilateral superior cerebellar arteries and AICAs. Region of PICAs was not fully included on this exam. It is difficult to exclude a small aneurysm projecting medially from the anterior left cavernous internal carotid artery about 1-2 mm although findings may be accentuated by motion and origin of the left ophthalmic artery is poorly distinguished. There is also small focus of increased flow-related enhancement projecting inferiorly from the right supraclinoid internal carotid artery about 1 to 2 mm. No large vessel occlusion is identified. No significant intracranial stenosis is identified. Impression: 1. No significant intracranial stenosis or vessel occlusion is identified of the visualized intracranial vessels. Exam is degraded by motion. 2. Findings are suspicious for small 1 to 2 mm aneurysm projecting medially from the anterior left cavernous internal carotid artery although poorly otherwise poorly characterized due to motion and origin of the left ophthalmic artery is poorly distinguished on this exam. There is also small focus of increased flow-related enhancement projecting inferiorly from the right supraclinoid internal carotid artery. Small aneurysm is difficult to exclude, other consideration of an infundibulum although vessel not well-visualized distally on this motion degraded exam. Neck MRA without contrast History:CVA, altered mental status Technique: [id number] MR angiography was performed of the neck. Comparison: None Findings: Determination of any degree of stenosis is based on NASCET criteria. There is significant motion degradation. There is antegrade flow of the bilateral vertebral arteries as well as common and internal carotid arteries. Accurate evaluation for stenosis is very limited due to degree of motion. No convincing vessel occlusion is identified of the cervical vertebral arteries or carotid arteries. Impression: 1. There is significant motion degradation, no convincing vessel occlusion identified of the cervical arterial vasculature, cannot accurately evaluate for stenosis. Assessment/Plan Assessment/Plan Impression: Metabolic encephalopathy, no sign of stroke, symptoms have resolved. Cardiology is seeing for frequent PVCs Recommendations: I ordered MRI of the brain with MR angiogram of the head and neck, already done, negative as reviewed above. Await echocardiogram I do not think that an electroencephalogram would help, does not send a whyte had any type of seizure activity. Okay to discharge later today. Follow-up with neurology as needed. Thank you for letting me help with the patient's care. REJI CHRISTINE MD Mar 13, 2019 12:44
--- NOTE | 2019-03-13 14:52 | PDOC1 ---
History and Physical Date of Admission Date of Admission DATE: 03/13/19 TIME: 14:44 Identification/Chief Complaint Chief Complaint confusion Source Source: Chart review, Patient History of Present Illness History of Present Illness 73-year-old male, with a past history of ESRD, on dialysis who presents to the emergency department via EMS for evaluation of AMS. Patient went to his dialysis and after he finished he passed out. "last known normal" time is unknown. . He was a dialysis and acting confused, so we do not know the time of onset. He denies any pain. He moves all extremities without any focal deficit. He denies any chest pain or shortness of breath. denies any history of stroke, seizure, or head injury. no focal findings on admission. Saw Dr. Wellington 2 years ago for metabolic encephalopathy ascribed to hyperthermia, he had been sitting in a hot car. CT head negative. labs stable. Hospitalist called for admission Past Medical History Cardiovascular: HTN, Hyperlipidemia GI: Constipation Heme/Onc: Anemia NOS Renal/: Chronic renal failure (dialysis) Endocrine: Hyperparathyroidism Past Surgical History Past Surgical History: Other (Left AV shunt) Family History Family History: Hypertension Social History Smoke: Quit (25 years ago) ALCOHOL: none Drugs: None Current Problem List Problem List Problems Medical Problems: (1) Altered mental status Status: Acute (2) ESRD (end stage renal disease) Status: Acute Current Medications Current Medications Current Medications Aspirin (Children'S Aspirin) 324 mg 1X ONCE PO Last administered on 03/12/19at 18:05; Start 03/12/19 at 18:15; Stop 03/12/19 at 18:16; Status DC Acetaminophen (Tylenol) 650 mg PRN Q6HRS PRN PO TEMP > 100.4F; Start 03/12/19 at 18:00 Acetaminophen (Tylenol Supp) 650 mg PRN Q4HRS PRN CT TEMP > 100.4F; Start 03/12/19 at 18:00 Aspirin (Ecotrin) 325 mg DAILYWBKFT PO Last administered on 03/13/19at 12:29; Start 03/13/19 at 08:00; Stop 03/13/19 at 13:32; Status DC Aspirin (Aspirin Rectal Supp) 300 [address]N CT IF UNABLE TO TAKE PO; Start 03/12/19 at 18:00 Hydralazine HCl (Apresoline Inj) 10 mg 1X ONCE IVP Last administered on 03/12/19at 19:09; Start 03/12/19 at 19:00; Stop 03/12/19 at 19:01; Status DC Hydralazine HCl (Apresoline Inj) 25 mg PRN Q8HRS PRN IVP ELEVATED BP, SEE COMMENTS Last administered on 03/12/19at 21:55; Start 03/12/19 at 20:15 Lorazepam (Ativan Inj) 1 mg PRN Q6HRS PRN IV ANXIETY / AGITATION Last administered on 03/12/19at 21:55; Start 03/12/19 at 21:00 Info (FLU VACCINE SCREEN per RX) 1 each 1X ONCE MC ; Start 03/13/19 at 03:15; Stop 03/13/19 at 03:16; Status UNV Influenza Virus Vaccine Quadrival (Afluria Quad 2019-20 (3yr Up) Syringe) 0.5 ml ONCE ONCE VAX IM ; Start 03/13/19 at 09:00; Stop 03/13/19 at 09:01; Status DC Amlodipine Besylate (Norvasc) 10 mg BID PO ; Start 03/13/19 at 21:00 Aspirin (Ecotrin) 81 mg DAILYWBKFT PO ; Start 03/14/19 at 08:00 Levofloxacin (Levaquin) 500 mg DAILY06 PO ; Start 03/14/19 at 06:00; Status UNV Metoprolol Tartrate (Lopressor) 12.5 mg BID PO ; Start 03/13/19 at 21:00 Minoxidil (Loniten) 10 mg DAILY PO ; Start 03/14/19 at 09:00 Calcium Acetate (Phoslo) 667 mg TIDWMEALS PO ; Start 03/13/19 at 17:00 Atorvastatin Calcium (Lipitor) 10 mg QHS PO ; Start 03/13/19 at 21:00 Active Scripts Active Metoprolol Tartrate 25 Mg Tablet 12.5 Mg PO BID 30 Days Aspirin Ec (Aspirin) 81 Mg Tablet.dr 81 Mg PO DAILYWBKFT 30 Days Reported Lovastatin 40 Mg Tablet 40 Mg PO HS Calphron (Calcium Acetate) 667 Mg Tablet 667 Mg PO TIDWMEALS Minoxidil 2.5 Mg Tablet 10 Mg PO DAILY Norvasc (Amlodipine Besylate) 10 Mg Tablet 10 Mg PO BID Allergies Allergies: Coded Allergies: No Known Drug Allergies (Unverified , 12/31/16) ROS Review of System CONSTITUTIONAL: No fever or chills EYES: No recent changes SKIN: No rash or itching CARDIOVASCULAR: No chest pain, syncope, palpitations, or edema RESPIRATORY: No SOB or cough GASTROINTESTINAL: No nausea, vomiting or abdominal pain NEUROLOGICAL: No headaches or weakness ENDOCRINE: No cold or heat intolerance GENITOURINARY: No urgency or frequency of urination MUSCULOSKELETAL: No back pain or joint pain LYMPHATICS: No enlarged lymph nodes PSYCHIATRIC: No anxiety or depression Physical Exam Physical Exam GENERAL: No apparent distress. Alert and oriented. HEENT: Head normocephalic, atraumatic. NECK: Supple LUNGS: Clear to auscultation. HEART: RRR, S1, S2 present, pulses intact ABDOMEN: Soft, positive bowel sounds. EXTREMITIES: No cyanosis or edema. NEUROLOGIC: Normal speech, normal tone PSYCHIATRIC: Normal affect, normal mood. SKIN: No ulceration. Vitals Vitals Vital Signs Date Time Temp Pulse Resp B/P (MAP) Pulse Ox O2 Delivery O2 Flow Rate FiO2 03/13/19 11:15 97.6 66 18 143/81 (101) 94 Room Air 97.6 Labs Labs Laboratory Tests Test 03/12/19 17:00 03/12/19 17:04 03/13/19 03:20 White Blood Count 3.5 x10^3/uL (4.0-11.0) Red Blood Count 4.05 x10^6/uL (4.30-5.70) Hemoglobin 13.5 g/dL (13.0-17.5) Hematocrit 39.7 % (39.0-53.0) Mean Corpuscular Volume 98 fL (79-100) Mean Corpuscular Hemoglobin 33 pg (25-35) Mean Corpuscular Hemoglobin Concent 34 g/dL (31-37) Red Cell Distribution Width 14.8 % (11.5-14.5) Platelet Count 138 x10^3/uL (140-400) Neutrophils (%) (Auto) 67 % (31-73) Lymphocytes (%) (Auto) 14 % (24-48) Monocytes (%) (Auto) 14 % (0-9) Eosinophils (%) (Auto) 4 % (0-3) Basophils (%) (Auto) 1 % (0-3) Neutrophils # (Auto) 2.3 x10^3/uL (1.8-7.7) Lymphocytes # (Auto) 0.5 x10^3/uL (1.0-4.8) Monocytes # (Auto) 0.5 x10^3/uL (0.0-1.1) Eosinophils # (Auto) 0.1 x10^3/uL (0.0-0.7) Basophils # (Auto) 0.0 x10^3/uL (0.0-0.2) Prothrombin Time 12.9 SEC (11.7-14.0) Prothromb Time International Ratio 1.0 (0.8-1.1) Activated Partial Thromboplast Time 28 SEC (24-38) Sodium Level 130 mmol/L (136-145) Potassium Level 4.2 mmol/L (3.5-5.1) Chloride Level 98 mmol/L (98-107) Carbon Dioxide Level 18 mmol/L (21-32) Anion Gap 14 (6-14) Blood Urea Nitrogen 35 mg/dL (8-26) Creatinine 8.7 mg/dL (0.7-1.3) Estimated GFR (Cockcroft-Gault) 7.3 BUN/Creatinine Ratio 4 (6-20) Glucose Level 100 mg/dL (70-99) Lactic Acid Level 1.2 mmol/L (0.4-2.0) Calcium Level 8.7 mg/dL (8.5-10.1) Magnesium Level 2.0 mg/dL (1.8-2.4) Total Bilirubin 0.5 mg/dL (0.2-1.0) Aspartate Amino Transf (AST/SGOT) 19 U/L (15-37) Alanine Aminotransferase (ALT/SGPT) 16 U/L (16-63) Alkaline Phosphatase 128 U/L (46-116) Troponin I Quantitative < 0.017 ng/mL (0.000-0.055) Total Protein 8.5 g/dL (6.4-8.2) Albumin 3.8 g/dL (3.4-5.0) Albumin/Globulin Ratio 0.8 (1.0-1.7) Lipase 230 U/L (73-393) Thyroid Stimulating Hormone (TSH) 2.161 uIU/mL (0.358-3.74) Free Thyroxine 0.70 ng/dL (0.76-1.46) Glucose (Fingerstick) 91 mg/dL (70-99) Triglycerides Level 56 mg/dL (0-150) Cholesterol Level 103 mg/dL (0-200) LDL Cholesterol, Calculated 51 mg/dL (0-100) VLDL Cholesterol, Calculated 11 mg/dL (0-40) Non-HDL Cholesterol Calculated 62 mg/dL (0-129) HDL Cholesterol 41 mg/dL (40-60) Cholesterol/HDL Ratio 2.5 Laboratory Tests Test 03/12/19 17:00 03/12/19 17:04 03/13/19 03:20 White Blood Count 3.5 x10^3/uL (4.0-11.0) Red Blood Count 4.05 x10^6/uL (4.30-5.70) Hemoglobin 13.5 g/dL (13.0-17.5) Hematocrit 39.7 % (39.0-53.0) Mean Corpuscular Volume 98 fL (79-100) Mean Corpuscular Hemoglobin 33 pg (25-35) Mean Corpuscular Hemoglobin Concent 34 g/dL (31-37) Red Cell Distribution Width 14.8 % (11.5-14.5) Platelet Count 138 x10^3/uL (140-400) Neutrophils (%) (Auto) 67 % (31-73) Lymphocytes (%) (Auto) 14 % (24-48) Monocytes (%) (Auto) 14 % (0-9) Eosinophils (%) (Auto) 4 % (0-3) Basophils (%) (Auto) 1 % (0-3) Neutrophils # (Auto) 2.3 x10^3/uL (1.8-7.7) Lymphocytes # (Auto) 0.5 x10^3/uL (1.0-4.8) Monocytes # (Auto) 0.5 x10^3/uL (0.0-1.1) Eosinophils # (Auto) 0.1 x10^3/uL (0.0-0.7) Basophils # (Auto) 0.0 x10^3/uL (0.0-0.2) Prothrombin Time 12.9 SEC (11.7-14.0) Prothromb Time International Ratio 1.0 (0.8-1.1) Activated Partial Thromboplast Time 28 SEC (24-38) Sodium Level 130 mmol/L (136-145) Potassium Level 4.2 mmol/L (3.5-5.1) Chloride Level 98 mmol/L (98-107) Carbon Dioxide Level 18 mmol/L (21-32) Anion Gap 14 (6-14) Blood Urea Nitrogen 35 mg/dL (8-26) Creatinine 8.7 mg/dL (0.7-1.3) Estimated GFR (Cockcroft-Gault) 7.3 BUN/Creatinine Ratio 4 (6-20) Glucose Level 100 mg/dL (70-99) Lactic Acid Level 1.2 mmol/L (0.4-2.0) Calcium Level 8.7 mg/dL (8.5-10.1) Magnesium Level 2.0 mg/dL (1.8-2.4) Total Bilirubin 0.5 mg/dL (0.2-1.0) Aspartate Amino Transf (AST/SGOT) 19 U/L (15-37) Alanine Aminotransferase (ALT/SGPT) 16 U/L (16-63) Alkaline Phosphatase 128 U/L (46-116) Troponin I Quantitative < 0.017 ng/mL (0.000-0.055) Total Protein 8.5 g/dL (6.4-8.2) Albumin 3.8 g/dL (3.4-5.0) Albumin/Globulin Ratio 0.8 (1.0-1.7) Lipase 230 U/L (73-393) Thyroid Stimulating Hormone (TSH) 2.161 uIU/mL (0.358-3.74) Free Thyroxine 0.70 ng/dL (0.76-1.46) Glucose (Fingerstick) 91 mg/dL (70-99) Triglycerides Level 56 mg/dL (0-150) Cholesterol Level 103 mg/dL (0-200) LDL Cholesterol, Calculated 51 mg/dL (0-100) VLDL Cholesterol, Calculated 11 mg/dL (0-40) Non-HDL Cholesterol Calculated 62 mg/dL (0-129) HDL Cholesterol 41 mg/dL (40-60) Cholesterol/HDL Ratio 2.5 VTE Prophylaxis Ordered VTE Prophylaxis Devices: No VTE Pharmacological Prophylaxi: Yes Assessment/Plan Assessment/Plan ASSESSMENT Metabolic encephalopathy; resolved. UNCLEAR ETIOLOGY. no sign of stroke Arrhythmia; frequent PVCs. ESRD on HD Accelerated hypertension Hyperparathyroidism. PLAN: admit to tele bed MRI MRA ordered echo ordered. defer EEG per neuro continue home meds Mg, TSH WNL. NO CHANGES IN TELE no further PVC on trele Echo pending to assess LV systolic function Continue low-dose BB Supportive care from a CV standpoint. COSMO EPSTEIN MD Mar 13, 2019 14:52
--- NOTE | 2019-03-13 14:57 | PDOC3 ---
Discharge Summary Visit Information Date of Admission: Mar 12, 2019 Date of Discharge: Mar 13, 2019 Final Diagnosis Problems Medical Problems: (1) Altered mental status Status: Acute (2) ESRD (end stage renal disease) Status: Acute Brief Hospital Course Allergies Allergies Coded Allergies Type Severity Reaction Last Updated Verified No Known Drug Allergies 12/31/16 No Vital Signs GENERAL: No apparent distress. Alert and oriented. HEENT: Head normocephalic, atraumatic. NECK: Supple LUNGS: Clear to auscultation. HEART: RRR, S1, S2 present, pulses intact ABDOMEN: Soft, positive bowel sounds. EXTREMITIES: No cyanosis or edema. NEUROLOGIC: Normal speech, normal tone PSYCHIATRIC: Normal affect, normal mood. SKIN: No ulceration. Vital Signs Date Time Temp Pulse Resp B/P (MAP) Pulse Ox O2 Delivery O2 Flow Rate FiO2 03/13/19 11:15 97.6 66 18 143/81 (101) 94 Room Air 97.6 Lab Results Laboratory Tests Test 03/12/19 17:00 03/12/19 17:04 03/13/19 03:20 White Blood Count 3.5 x10^3/uL (4.0-11.0) Red Blood Count 4.05 x10^6/uL (4.30-5.70) Hemoglobin 13.5 g/dL (13.0-17.5) Hematocrit 39.7 % (39.0-53.0) Mean Corpuscular Volume 98 fL (79-100) Mean Corpuscular Hemoglobin 33 pg (25-35) Mean Corpuscular Hemoglobin Concent 34 g/dL (31-37) Red Cell Distribution Width 14.8 % (11.5-14.5) Platelet Count 138 x10^3/uL (140-400) Neutrophils (%) (Auto) 67 % (31-73) Lymphocytes (%) (Auto) 14 % (24-48) Monocytes (%) (Auto) 14 % (0-9) Eosinophils (%) (Auto) 4 % (0-3) Basophils (%) (Auto) 1 % (0-3) Neutrophils # (Auto) 2.3 x10^3/uL (1.8-7.7) Lymphocytes # (Auto) 0.5 x10^3/uL (1.0-4.8) Monocytes # (Auto) 0.5 x10^3/uL (0.0-1.1) Eosinophils # (Auto) 0.1 x10^3/uL (0.0-0.7) Basophils # (Auto) 0.0 x10^3/uL (0.0-0.2) Prothrombin Time 12.9 SEC (11.7-14.0) Prothromb Time International Ratio 1.0 (0.8-1.1) Activated Partial Thromboplast Time 28 SEC (24-38) Sodium Level 130 mmol/L (136-145) Potassium Level 4.2 mmol/L (3.5-5.1) Chloride Level 98 mmol/L (98-107) Carbon Dioxide Level 18 mmol/L (21-32) Anion Gap 14 (6-14) Blood Urea Nitrogen 35 mg/dL (8-26) Creatinine 8.7 mg/dL (0.7-1.3) Estimated GFR (Cockcroft-Gault) 7.3 BUN/Creatinine Ratio 4 (6-20) Glucose Level 100 mg/dL (70-99) Lactic Acid Level 1.2 mmol/L (0.4-2.0) Calcium Level 8.7 mg/dL (8.5-10.1) Magnesium Level 2.0 mg/dL (1.8-2.4) Total Bilirubin 0.5 mg/dL (0.2-1.0) Aspartate Amino Transf (AST/SGOT) 19 U/L (15-37) Alanine Aminotransferase (ALT/SGPT) 16 U/L (16-63) Alkaline Phosphatase 128 U/L (46-116) Troponin I Quantitative < 0.017 ng/mL (0.000-0.055) Total Protein 8.5 g/dL (6.4-8.2) Albumin 3.8 g/dL (3.4-5.0) Albumin/Globulin Ratio 0.8 (1.0-1.7) Lipase 230 U/L (73-393) Thyroid Stimulating Hormone (TSH) 2.161 uIU/mL (0.358-3.74) Free Thyroxine 0.70 ng/dL (0.76-1.46) Glucose (Fingerstick) 91 mg/dL (70-99) Triglycerides Level 56 mg/dL (0-150) Cholesterol Level 103 mg/dL (0-200) LDL Cholesterol, Calculated 51 mg/dL (0-100) VLDL Cholesterol, Calculated 11 mg/dL (0-40) Non-HDL Cholesterol Calculated 62 mg/dL (0-129) HDL Cholesterol 41 mg/dL (40-60) Cholesterol/HDL Ratio 2.5 Laboratory Tests Test 03/12/19 17:00 03/12/19 17:04 03/13/19 03:20 White Blood Count 3.5 x10^3/uL (4.0-11.0) Red Blood Count 4.05 x10^6/uL (4.30-5.70) Hemoglobin 13.5 g/dL (13.0-17.5) Hematocrit 39.7 % (39.0-53.0) Mean Corpuscular Volume 98 fL (79-100) Mean Corpuscular Hemoglobin 33 pg (25-35) Mean Corpuscular Hemoglobin Concent 34 g/dL (31-37) Red Cell Distribution Width 14.8 % (11.5-14.5) Platelet Count 138 x10^3/uL (140-400) Neutrophils (%) (Auto) 67 % (31-73) Lymphocytes (%) (Auto) 14 % (24-48) Monocytes (%) (Auto) 14 % (0-9) Eosinophils (%) (Auto) 4 % (0-3) Basophils (%) (Auto) 1 % (0-3) Neutrophils # (Auto) 2.3 x10^3/uL (1.8-7.7) Lymphocytes # (Auto) 0.5 x10^3/uL (1.0-4.8) Monocytes # (Auto) 0.5 x10^3/uL (0.0-1.1) Eosinophils # (Auto) 0.1 x10^3/uL (0.0-0.7) Basophils # (Auto) 0.0 x10^3/uL (0.0-0.2) Prothrombin Time 12.9 SEC (11.7-14.0) Prothromb Time International Ratio 1.0 (0.8-1.1) Activated Partial Thromboplast Time 28 SEC (24-38) Sodium Level 130 mmol/L (136-145) Potassium Level 4.2 mmol/L (3.5-5.1) Chloride Level 98 mmol/L (98-107) Carbon Dioxide Level 18 mmol/L (21-32) Anion Gap 14 (6-14) Blood Urea Nitrogen 35 mg/dL (8-26) Creatinine 8.7 mg/dL (0.7-1.3) Estimated GFR (Cockcroft-Gault) 7.3 BUN/Creatinine Ratio 4 (6-20) Glucose Level 100 mg/dL (70-99) Lactic Acid Level 1.2 mmol/L (0.4-2.0) Calcium Level 8.7 mg/dL (8.5-10.1) Magnesium Level 2.0 mg/dL (1.8-2.4) Total Bilirubin 0.5 mg/dL (0.2-1.0) Aspartate Amino Transf (AST/SGOT) 19 U/L (15-37) Alanine Aminotransferase (ALT/SGPT) 16 U/L (16-63) Alkaline Phosphatase 128 U/L (46-116) Troponin I Quantitative < 0.017 ng/mL (0.000-0.055) Total Protein 8.5 g/dL (6.4-8.2) Albumin 3.8 g/dL (3.4-5.0) Albumin/Globulin Ratio 0.8 (1.0-1.7) Lipase 230 U/L (73-393) Thyroid Stimulating Hormone (TSH) 2.161 uIU/mL (0.358-3.74) Free Thyroxine 0.70 ng/dL (0.76-1.46) Glucose (Fingerstick) 91 mg/dL (70-99) Triglycerides Level 56 mg/dL (0-150) Cholesterol Level 103 mg/dL (0-200) LDL Cholesterol, Calculated 51 mg/dL (0-100) VLDL Cholesterol, Calculated 11 mg/dL (0-40) Non-HDL Cholesterol Calculated 62 mg/dL (0-129) HDL Cholesterol 41 mg/dL (40-60) Cholesterol/HDL Ratio 2.5 Brief Hospital Course 73-year-old male, with a past history of ESRD, on dialysis who presents to the emergency department via EMS for evaluation of AMS. Patient went to his dialysis and after he finished he passed out. "last known normal" time is unknown. . He was a dialysis and acting confused, so we do not know the time of onset. He denies any pain. He moves all extremities without any focal deficit. He denies any chest pain or shortness of breath. denies any history of stroke, seizure, or head injury. no focal findings on admission. Saw Dr. Wellington 2 years ago for metabolic encephalopathy ascribed to hyperthermia, he had been sitting in a hot car. CT head negative. labs stable. Hospitalist called for admission. hospital course Metabolic encephalopathy; resolved. UNCLEAR ETIOLOGY. no sign of stroke. MRI and MRA okay. no eeg per neuro Arrhythmia; frequent PVCs. labs stable including TSH and electrolytes. continue low dose BB. echo pending, if stable can discharge today ESRD on HD Accelerated hypertension. better after restarting BP meds Hyperparathyroidism. patient stable for dc if echo normal Discharge Information Condition at Discharge: Stable Follow Up: Weeks (PCP in 2 weeks) Disposition/Orders: D/C to Home Scheduled Amlodipine Besylate (Norvasc) 10 Mg Tablet, 10 MG PO BID, (Reported) Entered as Reported by: Princess Jensen on 01/01/17 0056 Last Taken: Unknown Dose on Unknown Date & Time Last Action: Continued on 03/13/19 1320 by COSMO EPSTEIN MD Aspirin (Aspirin Ec) 81 Mg Tablet.dr, 81 MG PO DAILYWBKFT for 30 Days, #30 Prescribed by: FEMI ENNIS MD on 01/03/17 162 Last Action: Continued on 03/13/19 132 by COSMO EPSTENI MD Calcium Acetate (Calphron) 667 Mg Tablet, 667 MG PO TIDWMEALS, (Reported) Entered as Reported by: POOJA JOHNSON on 01/01/17 1116 Last Action: Converted on 03/13/19 132 by COSMO EPSTEIN MD Lovastatin (Lovastatin) 40 Mg Tablet, 40 MG PO HS, (Reported) Entered as Reported by: POOJA JOHNSON on 01/01/17 1705 Last Action: Converted on 03/13/19 1320 by COSMO EPSTEIN MD Metoprolol Tartrate (Metoprolol Tartrate) 25 Mg Tablet, 12.5 MG PO BID for 30 Days, #30 Prescribed by: FEMI ENNIS MD on 01/03/17 1629 Last Action: Continued on 03/13/19 1320 by COSMO EPSTEIN MD Minoxidil (Minoxidil) 2.5 Mg Tablet, 10 MG PO DAILY, #4 (Reported) Entered as Reported by: Princess Jensen on 01/01/17 0102 Last Taken: Unknown Dose on Unknown Date & Time Last Action: Continued on 03/13/19 1320 by COSMO EPSTEIN MD Discontinued Medications Levofloxacin (Levaquin) 500 Mg Tablet, 500 MG PO DAILY06 for 7 Days, #7 Prescribed by: FEMI ENNIS MD on 01/03/17 1629 Last Action: Continued on 03/13/19 1320 by MD TETE HERRERA MANEESH MD Mar 13, 2019 14:57
[2019-03-13 15:24] VITALS: BP 150/67
[2019-03-13] MEDS ORDERED: CALCIUM ACETATE 667 MG CAPSULE PO SCH (17:00)
[2019-03-13] MEDS ORDERED: ATORVASTATIN CALCIUM 10 MG TABLET. PO SCH (21:00)
[2019-03-13] MEDS ORDERED: METOPROLOL TART IMMED RELEASE 25 MG TABLET. PO SCH (21:00)
[2019-03-13] MEDS ORDERED: amLODIPine BESYLATE 10 MG TABLET PO SCH (21:00)
[2019-03-14] MEDS ORDERED: ASPIRIN ENTERIC COATED 81 MG TABLET.DR. PO SCH (08:00)
[2019-03-14] MEDS ORDERED: MINOXIDIL 2.5 MG TABLET PO SCH (09:00)
--- NOTE | 2019-03-15 13:53 | CARD ---
MR#: [id number] Date of Study: 03/13/2019 Ordering Physician: REJI CHRISTINE, Referring Physician: REJI CHRISTINE, Tech: Jillian Torres APPROVED REPORT EXAM: Two-dimensional and M-mode echocardiogram with Doppler and color Doppler. Other Information Quality : GoodHR: 73bpm INDICATION CVA/TIA Aortic Valve Disease 2D DIMENSIONS RVDd3.0 (2.9-3.5cm)Left Atrium(2D)3.9 (1.6-4.0cm) IVSd1.0 (0.7-1.1cm)Aortic Root(2D)2.8 (2.0-3.7cm) LVDd5.4 (3.9-5.9cm)LVOT Diameter2.3 (1.8-2.4cm) PWd1.0 (0.7-1.1cm)LVDs3.5 (2.5-4.0cm) FS (%) 35.1 %SV88.6 ml LVEF(%)63.9 (>50%) M-Mode DIMENSIONS Aortic Cusp Exc1.20 (1.5-2.0cm) Aortic Valve AoV Peak González.260.9cm/sAoV VTI55.9cm AO Peak GR.27.2mmHgLVOT Peak González.89.5cm/s LVOT VTI 18.23cmAO Mean GR.16mmHg MESHA (VMAX)1.92hh8JRN (VTI)1.30cm2 AI P 1/2 Brak221lj Mitral Valve MV E Sbkeywsc64.7cm/sMV DECEL [id number] MV A Pkmswozm170.3cm/sMV NUZ49ys E/A Ratio0.6MVA (PHT)2.72cm2 TDI E/Lateral E'9.8E/Medial E'13.1 Tricuspid Valve TR P. Khmbryfj990qm/sRAP [id number] TR Peak Gr.94clLbEFDW74qbGh Pulmonary Vein S1 Psvccylf99.0cm/sD2 Yqyplbns73.3cm/s PVa [id number] LEFT VENTRICLE The left ventricle is normal size. There is normal left ventricular wall thickness. The left ventricu lar systolic function is normal and the ejection fraction is within normal range. The Ejection Fracti on is 55-60%. There is normal LV segmental wall motion. Transmitral Doppler flow pattern is Grade I-a bnormal relaxation pattern. RIGHT VENTRICLE The right ventricle is normal size. There is normal right ventricular wall thickness. The right ventr icular systolic function is normal. ATRIA The left atrium size is normal. The right atrium is mildly dilated. The interatrial septum is intact with no evidence for an atrial septal defect or patent foramen ovale as noted on 2-D or Doppler imagi ng. AORTIC VALVE The aortic valve is heavily calcified. Doppler and Color Flow revealed trace to mild aortic regurgita tion. Calculated aortic valve area is 1.3 cm2 with maximum pressure gradient of 27 mmHg and mean pres sure gradient of 16 mmHg. Doppler and color-flow analysis revealed mild aortic stenosis. MITRAL VALVE The mitral valve is thickened but opens well. Mitral annular calcification is mild. There is no evide nce of mitral valve prolapse. There is no mitral valve stenosis. Doppler and Color-flow revealed trac e mitral regurgitation. TRICUSPID VALVE The tricuspid valve is normal in structure and function. Doppler and Color Flow revealed trace tricus pid regurgitation with an estimated PAP of 36 mmHg. There is no tricuspid valve stenosis. PULMONIC VALVE The pulmonic valve is not well visualized. Doppler and Color Flow revealed no pulmonic valvular regur gitation. There is no pulmonic valvular stenosis. GREAT VESSELS The aortic root is normal in size. The IVC is normal in size and collapses >50% with inspiration. PERICARDIAL EFFUSION There is no evidence of significant pericardial effusion. Critical Notification Critical Value: No <Conclusion> The left ventricular systolic function is normal and the ejection fraction is within normal range. Th e Ejection Fraction is 55-60%. There is normal LV segmental wall motion. Calculated aortic valve area is 1.3 cm2 with maximum pressure gradient of 27 mmHg and mean pressure g radient of 16 mmHg. Doppler and color-flow analysis revealed mild aortic stenosis. The aortic valve is heavily calcified. Signed by : Ramy Ann, Electronically Approved : 03/13/2019 10:05:49
== END 2019-03-13 19:19 | disposition home or self-care (01) | DRG 70 ==
LOC: ER 16:46 → 6 SOUTH 17:50
PROVIDERS: ADMIT Internal Medicine; ATTEND Internal Medicine
DX: G93.41 Metabolic encephalopathy (principal); N18.6 End stage renal disease; I12.0 Hypertensive chronic kidney disease with stage 5 chronic kidney disease or end stage renal disease; E78.5 Hyperlipidemia, unspecified; K59.00 Constipation, unspecified; I25.10 Atherosclerotic heart disease of native coronary artery without angina pectoris; I49.9 Cardiac arrhythmia, unspecified; E21.3 Hyperparathyroidism, unspecified; I49.3 Ventricular premature depolarization; Z82.49 Family history of ischemic heart disease and other diseases of the circulatory system; Z99.2 Dependence on renal dialysis; Z86.73 Personal history of transient ischemic attack (TIA), and cerebral infarction without residual deficits
CPT/HCPCS: 36415; 70450; 70544; 70547; 70551; 71045; 80053; 80061; 82962; 83605; 83690; 83735; 84439; 84443; 84484; 85025; 85610; 85730; 87040; 93005; 93306; J0360; J2060; 92610; 97116; 99285-25; G0378

== ENCOUNTER 2020-06-23 15:40 | Emergency (ER) | payer MEDICARE ==
[~2020-06-23] VITALS: Ht 182.9 cm; Wt 84.9 kg
[~2020-06-23 15:40] MED LIST changes: -ASPI-612 PO; +ASPI-886 PO
[2020-06-23 17:28] LABS: BASO % 1 % (0-3); EOS # 0.1 x10^3/uL (0.0-0.7); EOS % 2 % (0-3); HEMATOCRIT 29.1 % (39.0-53.0); HEMOGLOBIN 9.9 g/dL (13.0-17.5); LYMPH # 0.3 x10^3/uL (1.0-4.8); LYMPH % 8 % (24-48); MEAN CORPUSCULAR HEMOGLOBIN 31 pg (25-35); MEAN CORPUSCULAR HGB CONC 34 g/dL (31-37); MEAN CORPUSCULAR VOLUME 92 fL (79-100); MONO # 0.4 x10^3/uL (0.0-1.1); MONO % 13 % (0-9); NEUT # 2.5 x10^3/uL (1.8-7.7); NEUT % 77 % (31-73); PLATELET COUNT 111 x10^3/uL (140-400); RED BLOOD COUNT 3.16 x10^6/uL (4.30-5.70); RED CELL DISTRIBUTION WIDTH 15.1 % (11.5-14.5); WHITE BLOOD COUNT 3.2 x10^3/uL (4.0-11.0)
[2020-06-23 17:47] LABS: % EOS 3 % (0-5); % LYMPHS 11 % (24-48); % MONOS 7 % (0-10); % SEGS 79 % (35-66); CALCIUM 8.7 mg/dL (8.5-10.1); CREATININE 8.3 mg/dL (0.7-1.3); GFR 7.6; PLT ESTIMATE DECREASED (ADEQUATE); POTASSIUM 3.5 mmol/L (3.5-5.1)
[2020-06-23 17:53] LABS: ALBUMIN 3.3 g/dL (3.4-5.0); ALBUMIN/GLOBULIN RATIO 0.8 (1.0-1.7); MAGNESIUM 2.1 mg/dL (1.8-2.4); TOTAL BILIRUBIN 0.6 mg/dL (0.2-1.0); TOTAL PROTEIN 7.2 g/dL (6.4-8.2)
[2020-06-23 18:00] VITALS: BP 158/83
--- NOTE | 2020-06-23 18:24 | ED.ADGEN ---
Past Medical History Past Medical History: CAD, Hypertension, Renal Failure Past Surgical History: Other Additional Past Surgical Histo: FISTULA LEFT ARM Smoking Status: Former Smoker Alcohol Use: None Drug Use: None General Adult EDM: Chief Complaint: WEAKNESS/GENERALIZED HPI: HPI: Patient is a 74 year old AA male who presents to the emergency department via EMS with reports of feeling dizzy after he had completed his dialysis treatment today. Patient denies any shortness of breath, chest pain, palpitations, headache, cough, fever, fatigue, numbness, tingling, or weakness. He states that he just felt lightheaded like he was going to pass out. Patient denies any syncope or sensation of the room spinning. Any vision changes, body aches, or fatigue. Patient denies any nausea, vomiting, diarrhea, or abdominal pain. He reports that normal amount of fluid was removed at dialysis today. He currently denies any pain. Review of Systems: Review of Systems: Complete ROS is negative unless otherwise noted in HPI. Allergies: Allergies: Allergies Coded Allergies Type Severity Reaction Last Updated Verified No Known Drug Allergies 12/31/16 No Physical Exam: PE: See Above Constitutional: Well developed, well nourished, no acute distress, non-toxic appearance. [] HENT: Normocephalic, atraumatic, bilateral external ears normal, nose normal. [] Eyes: PERRLA, EOMI, conjunctiva normal, no discharge. [] Neck: Normal range of motion, no stridor. [] Cardiovascular:Heart rate regular irregular rhythm Lungs & Thorax: Respirations even and unlabored, no retractions, no respiratory distress Abdomen: soft, no tenderness Skin: Warm, dry, no erythema, no rash. [] Extremities: No cyanosis, ROM intact, no edema, left arm AV fistula positive bruit and thrill. [] Neurologic: Alert and oriented X 3, no focal deficits noted. [] Psychologic: Affect normal, judgement normal, mood normal. [] Current Patient Data: Labs: Laboratory Tests Test 06/23/20 17:21 White Blood Count 3.2 x10^3/uL (4.0-11.0) L Red Blood Count 3.16 x10^6/uL (4.30-5.70) L Hemoglobin 9.9 g/dL (13.0-17.5) L Hematocrit 29.1 % (39.0-53.0) L Mean Corpuscular Volume 92 fL (79-100) Mean Corpuscular Hemoglobin 31 pg (25-35) Mean Corpuscular Hemoglobin Concent 34 g/dL (31-37) Red Cell Distribution Width 15.1 % (11.5-14.5) H Platelet Count 111 x10^3/uL (140-400) L Neutrophils (%) (Auto) 77 % (31-73) H Lymphocytes (%) (Auto) 8 % (24-48) L Monocytes (%) (Auto) 13 % (0-9) H Eosinophils (%) (Auto) 2 % (0-3) Basophils (%) (Auto) 1 % (0-3) Neutrophils # (Auto) 2.5 x10^3/uL (1.8-7.7) Lymphocytes # (Auto) 0.3 x10^3/uL (1.0-4.8) L Monocytes # (Auto) 0.4 x10^3/uL (0.0-1.1) Eosinophils # (Auto) 0.1 x10^3/uL (0.0-0.7) Basophils # (Auto) 0.0 x10^3/uL (0.0-0.2) Segmented Neutrophils % 79 % (35-66) H Lymphocytes % 11 % (24-48) L Monocytes % 7 % (0-10) Eosinophils % 3 % (0-5) Platelet Estimate Decreased (ADEQUATE) Sodium Level 138 mmol/L (136-145) Potassium Level 3.5 mmol/L (3.5-5.1) Chloride Level 100 mmol/L (98-107) Carbon Dioxide Level 27 mmol/L (21-32) Anion Gap 11 (6-14) Blood Urea Nitrogen 37 mg/dL (8-26) H Creatinine 8.3 mg/dL (0.7-1.3) H Estimated GFR (Cockcroft-Gault) 7.6 BUN/Creatinine Ratio 4 (6-20) L Glucose Level 89 mg/dL (70-99) Calcium Level 8.7 mg/dL (8.5-10.1) Magnesium Level 2.1 mg/dL (1.8-2.4) Total Bilirubin 0.6 mg/dL (0.2-1.0) Aspartate Amino Transferase (AST) 17 U/L (15-37) Alanine Aminotransferase (ALT) 17 U/L (16-63) Alkaline Phosphatase 67 U/L (46-116) Troponin I Quantitative 0.094 ng/mL (0.000-0.055) Total Protein 7.2 g/dL (6.4-8.2) Albumin 3.3 g/dL (3.4-5.0) L Albumin/Globulin Ratio 0.8 (1.0-1.7) L Laboratory Tests 06/23/20 17:21 Laboratory Tests 06/23/20 17:21 Vital Signs: Vital Signs Date Time Temp Pulse Resp B/P (MAP) Pulse Ox O2 Delivery O2 Flow Rate FiO2 06/23/20 17:11 98.2 78 20 153/70 (97) 97 Room Air 98.2 EKG: EK-A. fib rate 79, no STEMI, read by Dr. Peoples [] Heart Score: HEART Score for Chest Pain: HEART Score for Chest Pain Response (Comments) Value History Slighlty/Non-Suspicious 0 ECG Nonspecific Repolarizatio 1 Age > 65 2 Risk Factors >3 Risk Factors or Hx CAD 2 Troponin >1-<3x Normal Limit 1 Total 6 Risk Factors: Risk Factors: DM, Current or recent (<one month) smoker, HTN, HLP, family history of CAD, obesity. Risk Scores: Score 0 - 3: 2.5% MACE over next 6 weeks - Discharge Home Score 4 - 6: 20.3% MACE over next 6 weeks - Admit for Clinical Observation Score 7 - 10: 72.7% MACE over next 6 weeks - Early Invasive Strategies Radiology/Procedures: Radiology/Procedures: [] Course & Med Decision Making: Course & Med Decision Making Pertinent Labs and Imaging studies reviewed. (See chart for details) 74-year-old male who presents emergency department via EMS after sudden onset of dizziness/feeling lightheaded after he had dialysis today. Patient denied any chest pain or shortness of breath with the dizziness. He he denied any sensation of the room spinning. Patient reports that he just felt like he was going to pass out so he sat down. Patient's heart score is a 6. His troponin is 0.094. Patient's BUN is 37, creatinine is 8.3, CMP is otherwise unremarkable. CBC revealed a hemoglobin of 9.9, hematocrit of 29.1, otherwise unremarkable. 1814-I recommended patient stay for further evaluation of slightly elevated troponin. The patient declined, states he does not want to stay, he is requesting to go home at this time. Patient states he no longer feels lightheaded or dizzy, his vital signs are stable. I encouraged the patient to return the emergency room if symptoms worsen, he develops chest pain, shortness of breath, or headache. Patient verbalized an understanding of home care, medications, follow-up, and return to ED instructions and was in agreement with the plan of care. [] Dragon Disclaimer: Dragon Disclaimer: This electronic medical record was generated, in whole or in part, using a voice recognition dictation system. Departure Departure Impression: Primary Impression: Near syncope Additional Impression: Elevated troponin Disposition: 01 DC HOME SELF CARE/HOMELESS Condition: STABLE Referrals: STEPHANIE SAUCEDA (PCP) Patient Instructions: Syncope, [id number] Additional Instructions: Please return to the emergency room if you develop chest pain, shortness of breath, or your dizziness returns. You declined to be admitted to the hospital for further evaluation of your elevated troponin. Follow-up with your primary care doctor in the next 1 to 2 days. 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
--- NOTE | 2020-06-24 17:28 | EKG ---
[facility] [address] [place] [address] Test Date: 2020-06-23 Test Time: 17:21:39 Pat Name: TR BALTAZAR Department: Room: Gender: Supervisor Forming Department: : 1945 Requested By: RAFFI FRAGOSO Order Number: [id number] Reading MD: Measurements Intervals [place] Rate: 79 P: [place]: QRS: 49 QRSD: 86 T: 227 QT: 390 QTc: 448 Interpretive Statements IRREGULAR RHYTHM, NO P-WAVE FOUND ST & T ABNORMALITY, CONSIDER ANTERIOR ISCHEMIA OR LEFT VENTRICULAR STRAIN INFEROLATERAL ISCHEMIA OR LEFT VENTRICULAR STRAIN ABNORMAL ECG RI6.02 No previous ECG available for comparison
== END 2020-06-23 18:37 | disposition home or self-care (01) ==
LOC: ER 15:40
DX: R55 Syncope and collapse (principal); R77.8 Other specified abnormalities of plasma proteins; I12.9 Hypertensive chronic kidney disease with stage 1 through stage 4 chronic kidney disease, or unspecified chronic kidney disease; N18.9 Chronic kidney disease, unspecified; I25.10 Atherosclerotic heart disease of native coronary artery without angina pectoris; Z87.891 Personal history of nicotine dependence
CPT/HCPCS: 36415; 80053; 83735; 84484; 85007; 85025; 93005; 99284

== ENCOUNTER 2021-07-20 15:01 | Emergency (ER) | payer OTHER, MEDICARE ==
[~2021-07-20] VITALS: Ht 182.9 cm; Wt 100.0 kg
[2021-07-20] MEDS ORDERED: LIDOCAINE/EPI/TETRACAINE TOPICAL GEL 3 ML. TP ONE ×2 (15:08→15:15)
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
[2021-07-20] MEDS ORDERED: LIDOCAINE 2% Multi-Dose 20 ML VIAL. ONE (16:06)
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
[2021-07-20] MEDS ORDERED: LIDOCAINE 2%/EPI 1:100,000 20 ML VIAL. INJ ONE (16:15)
[2021-07-20] MEDS ORDERED: NEOMY/BACITR/POLYMYXIN OINT PACKET. TP ONE (16:45)
[2021-07-20 17:40] VITALS: BP 140/79
== END 2021-07-20 17:53 | disposition home or self-care (01) ==
LOC: ER 15:01
DX: S01.81XA Laceration without foreign body of other part of head, initial encounter (principal); I12.9 Hypertensive chronic kidney disease with stage 1 through stage 4 chronic kidney disease, or unspecified chronic kidney disease; N18.9 Chronic kidney disease, unspecified; I25.10 Atherosclerotic heart disease of native coronary artery without angina pectoris; V49.49XA Driver injured in collision with other motor vehicles in traffic accident, initial encounter; Y93.89 Activity, other specified; Y92.488 Other paved roadways as the place of occurrence of the external cause; Y99.8 Other external cause status
CPT/HCPCS: 12011; 70450; 72125; 99284; J3490